=== PATIENT | male | born 1960 | race Caucasian/White ===

== ENCOUNTER 2017-07-16 18:54 | Emergency (ER) | payer SELFPAY ==
[2017-07-16 18:55] VITALS: BP 129/80; PULSE 84; RESP 15; TEMP 98.4; O2SAT 98
== END 2017-07-16 20:43 | disposition left against medical advice (07) ==
LOC: NED 18:54
DX: R41.82 Altered mental status, unspecified (principal); Z53.21 Procedure and treatment not carried out due to patient leaving prior to being seen by health care provider
CPT/HCPCS: 99281

== ENCOUNTER 2017-07-17 19:42 | Inpatient (IN) | payer OTHER ==
[~2017-07-17] VITALS: Ht 188 cm; Wt 75.5 kg
[2017-07-18 01:00] VITALS: BP 133/77; PULSE 74; RESP 20; TEMP 97.4; O2SAT 99
[2017-07-18] MEDS ORDERED: MAGNESIUM HYDROXIDE SUSP 30 ML CUP PO PRN (03:00)
[2017-07-18] MEDS ORDERED: BENZTROPINE MESYLATE 2 MG/2 ML VIAL IM PRN (03:00)
[2017-07-18] MEDS ORDERED: ALUMINUM/MAGNESIUM/SIMETH 30 ML CUP PO PRN (03:00)
--- NOTE | 2017-07-18 08:17 | HHI.HP ---
Provisional Diagnosis Admission Date Jul 18, 2017 at 01:00 [place] I. 1. Adjustment disorder, unspecified Rule out primary psychotic disorder Rule out psychosis due to [facility] [place]. Deferred Certification of Person's Competence To Provide Express and Informed Consent I have personally examined Troy Johnson , a person being served at [facility] on, Jul 18, 2017 08:17. Express and informed consent means consent voluntarily given in writing, by a competent person, after sufficient explanation and disclosure of the subject matter involved to enable the person to make a knowing and willful decision without any element of force, fraud, deceit, duress, or other form of constraint or coercion. This person is 18 years of age or older, is not now known to be incompetent to consent to treatment with a guardian advocate, and does not have a health care surrogate or proxy currently making medical treatment decisions. I have found this person to be one of the following: [] Competent to provide express and informed consent, as defined above, for voluntary admission to this facility and is competent to provide express and informed consent for treatment. He/she has the consistent capacity to make well reasoned, willful, and knowing decisions concerning his or her medical or mental health treatment. The person fully and consistently understands the purpose of the admission for examination/placement and is fully capable of personally exercising all rights assured [place] [x] Incompetent to provide express and informed consent to voluntary admission, and this is incompetent to provide express and informed consent to treatment. The person must be transferred to involuntary status and a petition for a guardian advocate filed with the Circuit Court. [] Refusing to provide express and informed consent to voluntary admission but is competent to provide express and informed consent for treatment. The person must be discharged or transferred to involuntary status. Form shall be completed within 24 hours of a person's arrival at the receiving facility and filed in the clinical record of each person: 1. Admitted on a voluntary basis 2. Permitted to provide express and informed consent to his/her own treatment 3. Allowed to transfer from involuntary to voluntary status 4. Prior to permitting a person to consent to his or her own treatment after having been previously found incompetent to consent to treatment. History of Present Illness Capacity: Lacks Capacity HPI Mr. Johnson is a 57-year-old male of uncertain past psychiatric history who presents in transfer from [facility] under a [place] act. Reviewing the documentation from [facility], it appears that the patient presented there at the behest of his primary care doctor. Patient' s brother provided collateral to the psychiatric screener that the patient has experienced audiovisual hallucinations since his 30s, although he has not apparently sought psychiatric care. Concern was that he threatened to punch their mother. Reviewing the electronic medical record, I see the patient was in the emergency department here recently but left without being seen. Patient seen and examined with nurse. Chart reviewed. Case discussed with nursing staff. On my examination today, the patient presents as a fairly vague historian. He does describe some paranoia, saying that [place] "has been setting them up...As soon as you walk into the place, they've got it planned. It's already pre-set-up." Denies audiovisual hallucinations. I can elicit no other paranoid ideation, no ideas of reference, no feelings of thought manipulation. He denies low mood and I can elicit no depressive symptoms. He denies elevated mood and I can elicit no hypomanic or manic symptoms. He describes his mood as "right in the middle." He denies any suicidal or homicidal ideation. Sleep and appetite are reportedly somewhat poor. Remainder of the psychiatric ROS is negative. No physical symptoms at this time. Given the concerns highlighted in the documentation from outside hospital, and given that the patient is a poor historian, I have obtained collateral from the patient's brother Sander Johnson. He notes that the patient has a history of hallucinations since his 30s but never sought psychiatric care. He says that the patient has no known history of psychiatric admissions or suicide attempts. He says that the patient frequently "flies off the handle" by which he means that the patient yells and he says that this problem has been getting worse in the last year or so. He says that the patient believes that people are coming into the house in the evening. He says that the patient may be more upset at this time because their mother canceled the cable TV package that he likes. Sander is concerned about his mother's safety given the patient's recent behavior. Past psychiatric history: The patient denies a history of psychiatric diagnosis. He denies a history of inpatient or outpatient psychiatric treatment. He denies a history of suicide attempts. Review of Systems ROS Limitations: Poor Historian Except as stated in HPI: all other systems reviewed are Neg Past Psych History Psychological trauma history No reported trauma history to me Violence risk - others (6 mos) Concern for elevated risk. Possibility exists that the patient is psychotic with urge to violence directed against his mother as alleged in the documents from outside hospital. The patient does deny homicidal ideation at this time. Violence risk - self (6 mos) Indeterminate Substance Abuse History Drugs/Alcohol past 12 months Patient denies any abuse of drugs or alcohol. Past Family Social History Coded Allergies: No Known Allergies (Verified Allergy, Severe, 07/16/17) Past Medical History Patient reports no medical problems. Brother confirms that the patient has no medical problems. No Active Prescriptions or Reported Meds Current Medications Medications (Trade) Dose Ordered Sig/Ally Route Start Time Stop Time Status Last Admin (Ativan) 1 mg Q6H PRN PO 07/18/17 03:00 (Ativan Inj) 1 mg Q6H PRN IM 07/18/17 03:00 (Cogentin) 1 mg Q12H PRN PO 07/18/17 03:00 (Cogentin Inj) 1 mg Q12H PRN IM 07/18/17 03:00 (Benadryl) 50 mg HS PRN PO 07/18/17 03:00 (Benadryl Inj) 50 mg HS PRN IM 07/18/17 03:00 (Tylenol) 650 mg Q4H PRN PO 07/18/17 03:00 (Milk Of Magnesia Liq) 30 ml DAILY PRN PO 07/18/17 03:00 (Mag-Al Plus Susp Liq) 30 ml Q6H PRN PO 07/18/17 03:00 Family History Patient denies any family history of mental illness. Social History Patient reports that he lives with his 90-year-old mother. 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 He has 2 brothers although one is reportedly , unclear if this is in fact factual. Did not complete high school. Not presently working. Denies any or legal history. Denies any access to guns or firearms. Patient's Strengths (min. 2) In a monitored setting. Supportive brother. Physical Exam Physical exam completed at outside hospital. On my examination today, the patient appears to be in no acute physical distress. No motor abnormalities noted. Labs and vitals reviewed: Vital Signs Vital Signs Date Time Temp Pulse Resp B/P (MAP) Pulse Ox O2 Delivery O2 Flow Rate FiO2 07/18/17 01:00 97.4 74 20 133/77 (95) 99 Lab Results Laboratories from outside hospital reviewed: CBC unremarkable. CMP reveals mildly elevated total bilirubin at 1.7 but otherwise unremarkable. Urinalysis bland. Urine toxicology negative. Alcohol level undetectable. Mental Status Examination Patient is in hospital gown. He is somewhat disheveled but maintaining basic hygiene. He is awake and alert and oriented to person and hospital at least. No evidence of delirium. No motor abnormalities noted. Speech is somewhat vague as far as content is otherwise within normal limits for rate, tone and volume. Lying which and fund of knowledge approximately average. Focus and concentration seem fairly intact. Memory may be somewhat confabulated, unclear. Mood is stable and affect is flat. Thought process generally linear. No loosening of associations. No delusional material elicited at this time. Denies audiovisual hallucinations. Denies suicidal or homicidal ideation but is unclear that he is reliable contract for safety. Insight and judgment are unclear. Assessment & Plan Problem List: (1) Adjustment disorder ICD Codes: F43.20 - Adjustment disorder, unspecified Assessment & Plan This is a 57-year-old male with psychiatric history as detailed above who presents in transfer from outside hospital under a [place] act. On my examination today, the patient presents as a quite vague historian. He denies psychotic symptoms, but the patient's brother provides collateral that the patient has a history of audiovisual hallucination stretching back into his 30s although it does not appear this has been psychiatrically evaluated or treated in that time. Patient has allegedly been making threats of violence against his aged mother. Given the concerns highlighted by the brother and in the transfer documents, I think it is prudent to admit the patient to the inpatient psychiatric unit for observation and stabilization if necessary. Admit inpatient. Involuntary status. I completed first opinion. Consult for second opinion. Request healthcare surrogate and guardian advocate. It does not appear that the patient has had a first break psychosis workup done in the many decades of his reported symptomatology. I will check a head CT. Check a TSH, B12, RPR, HIV, ammonia. Check EKG for QTC. Hold off on scheduled psychotropics at this time pending further observation. Haldol as needed for severe agitation, Ativan as needed for anxiety, Cogentin as needed for EPS, Benadryl as needed for sleep. Vitals every shift. Counselor to see and obtain collateral. Disposition planning. Estimated length of stay: 7-9 days. Discharge Planning Pending outcome of observation/stabilization Problem Qualifiers (1) Adjustment disorder: Qualified Codes: F43.20 - Adjustment disorder, unspecified Reinaldo Guadalupe MD Jul 18, 2017 08:17
[2017-07-18 10:06] LABS: ANION GAP 7 MEQ/L (5-15); BICARBONATE 28.7 MEQ/L (21.0-32.0); BLOOD UREA NITROGEN 17 MG/DL (7-18); CHLORIDE 105 MEQ/L (98-107); GLOMERULAR FILTRATION RATE 76 ML/MIN (>89); POTASSIUM 3.5 MEQ/L (3.5-5.1); SODIUM (NA) 141 MEQ/L (136-145)
[2017-07-18 10:09] LABS: HDL CHOLESTEROL 53.6 MG/DL (40.0-60.0); LDL CHOLESTEROL 121 MG/DL (0-99)
[2017-07-18 10:56] LABS: HEMOGLOBIN A1b 1.7 %; HEMOGLOBIN Ao 85.1 %; HEMOGLOBIN LA1C 2.1 %; HEMOGLOBIN P3 3.8 %
[2017-07-18] MEDS: LORazepam 1 MG TAB PO PRN ×2 (15:39→20:26)
[2017-07-18 16:07] VITALS: BP 144/75; PULSE 77; RESP 18; TEMP 98.1
--- NOTE | 2017-07-18 16:11 | PD.PSY.CON ---
Provisional Diagnosis Admission Date Jul 18, 2017 at 01:00 [place]. 1. Adjustment disorder, unspecified Rule out primary psychotic disorder Rule out psychosis due to [facility] [place]. Deferred History of Present Illness Service Psychiatry Consult Requested By Dr. Mcdermott Reason for Consult Second opinion petition [place] act Primary Care Physician Troy Call MD HPI Mr. Johnson is a 57-year-old male of uncertain past psychiatric history who presents in transfer from [facility] under a [place] act. Reviewing the documentation from [facility], it appears that the patient presented there at the behest of his primary care doctor. Patient' s brother provided collateral to the psychiatric screener that the patient has experienced audiovisual hallucinations since his 30s, although he has not apparently sought psychiatric care. Concern was that he threatened to punch their mother. Reviewing the electronic medical record, I see the patient was in the emergency department here recently but left without being seen. Patient seen and examined with nurse. Chart reviewed. Case discussed with nursing staff. On my examination today, the patient presents as a fairly vague historian. He does describe some paranoia, saying that [place] "has been setting them up...As soon as you walk into the place, they've got it planned. It's already pre-set-up." Denies audiovisual hallucinations. I can elicit no other paranoid ideation, no ideas of reference, no feelings of thought manipulation. He denies low mood and I can elicit no depressive symptoms. He denies elevated mood and I can elicit no hypomanic or manic symptoms. He describes his mood as "right in the middle." He denies any suicidal or homicidal ideation. Sleep and appetite are reportedly somewhat poor. Remainder of the psychiatric ROS is negative. No physical symptoms at this time. Given the concerns highlighted in the documentation from outside hospital, and given that the patient is a poor historian, I have obtained collateral from the patient's brother Sander Johnson. He notes that the patient has a history of hallucinations since his 30s but never sought psychiatric care. He says that the patient has no known history of psychiatric admissions or suicide attempts. He says that the patient frequently "flies off the handle" by which he means that the patient yells and he says that this problem has been getting worse in the last year or so. He says that the patient believes that people are coming into the house in the evening. He says that the patient may be more upset at this time because their mother canceled the cable TV package that he likes. Sander is concerned about his mother's safety given the patient's recent behavior. Past psychiatric history: The patient denies a history of psychiatric diagnosis. He denies a history of inpatient or outpatient psychiatric treatment. He denies a history of suicide attempts. 07/18/17 Above note dictated by Dr. guadalupe reviewed and agreed with. Patient seen by me in [place] with nurse Samantha. Patient anxious nervous appears to be responding to internal stimuli shows no insight into his behaviors is confused as to his location. Dr. Guadalupe #first opinion petition supporting [place] act. I agree. Patient meets criteria for involuntary psychiatric hospitalization the [place] act. Thus I will cosign second opinion petition supporting [place] act Past Family Social History Coded Allergies: No Known Allergies (Verified Allergy, Severe, 07/16/17) No Active Prescriptions or Reported Meds Current Medications Medications (Trade) Dose Ordered Sig/Ally Route Start Time Stop Time Status Last Admin (Ativan) 1 mg Q6H PRN PO 07/18/17 03:00 07/18/17 15:39 (Ativan Inj) 1 mg Q6H PRN IM 07/18/17 03:00 (Cogentin) 1 mg Q12H PRN PO 07/18/17 03:00 (Cogentin Inj) 1 mg Q12H PRN IM 07/18/17 03:00 (Benadryl) 50 mg HS PRN PO 07/18/17 03:00 (Benadryl Inj) 50 mg HS PRN IM 07/18/17 03:00 (Tylenol) 650 mg Q4H PRN PO 07/18/17 03:00 (Milk Of Magnesia Liq) 30 ml DAILY PRN PO 07/18/17 03:00 (Mag-Al Plus Susp Liq) 30 ml Q6H PRN PO 07/18/17 03:00 (Haldol) 5 mg Q6H PRN PO 07/18/17 09:15 (Haldol Inj) 5 mg Q6H PRN IM 07/18/17 09:15 Patient's Strengths (min. 2) In a monitored setting. Supportive brother. Physical Exam Vital Signs Vital Signs Date Time Temp Pulse Resp B/P (MAP) Pulse Ox O2 Delivery O2 Flow Rate FiO2 07/18/17 01:00 97.4 74 20 133/77 (95) 99 Lab Results Test 07/18/17 09:04 07/18/17 12:38 Blood Urea Nitrogen 17 MG/DL Creatinine 1.01 MG/DL Random Glucose 113 MG/DL Calcium Level 8.2 MG/DL Sodium Level 141 MEQ/L Potassium Level 3.5 MEQ/L Chloride Level 105 MEQ/L Carbon Dioxide Level 28.7 MEQ/L Anion Gap 7 MEQ/L Estimat Glomerular Filtration Rate 76 ML/MIN Hemoglobin A1c 5.8 % Triglycerides Level 93 MG/DL Cholesterol Level 193 MG/DL LDL Cholesterol 121 MG/DL HDL Cholesterol 53.6 MG/DL Cholesterol/HDL Ratio 3.60 RATIO Ammonia 20 MCMOL/L Vitamin B12 Level 579 PG/ML Thyroid Stimulating Hormone 3rd Gen 1.500 uIU/ML Mental Status Examination Alert though somewhat confusing thin slender disheveled white male guarded in his responses somewhat childlike also Appearance Disheveled Speech: Rapid, Other (disorganized) Orientation: Person, Place Memory: Impaired (describe) Thought Process: Loose Association Thought Content: Paranoid (mildly) Language Poor Fund of Knowledge Poor Hallucination Type: None (though he appears to be responding to internal stimuli) Attention and Concentration: Other (poor) Suicidal Ideation: No (deny) Previous Suicide Attempts: No (denies) Homicidal Ideation: No (denies) Previous Homicide Attempts: No (deny) Insight: Poor Judgment: Poor Affect: Other (slight increase range and intensity) Mood: Anxious (mildly), Irritable (mildly) Motor Activity: Normal gait Assessment & Plan Problem List: (1) Adjustment disorder ICD Codes: F43.20 - Adjustment disorder, unspecified Assessment & Plan Estimated LOS: days Problem Qualifiers (1) Adjustment disorder: Qualified Codes: F43.20 - Adjustment disorder, unspecified Troy Keys MD Jul 18, 2017 16:11
--- NOTE | 2017-07-18 16:41 | EKG ---
Date Performed: 07/18/2017 Time Performed: 10:37:05 PTAGE: 57 years EKG: Sinus rhythm POSSIBLE RIGHT VENTRICULAR CONDUCTION DELAY SEPTAL MYOCARDIAL INFARCTION , PROBABLY OLD ABNORMAL ECG NO PREVIOUS TRACING DOCTOR: Karen Mckee Interpretating Date/Time 07/18/2017 16:38:22
[2017-07-18] MEDS: diphenhydrAMINE HCL 50 MG CAP - HS PRN PO (20:26)
[2017-07-18] MEDS: HALOPERIDOL LACTATE 5 MG/ML AMP IM PRN (23:22)
[2017-07-19 05:55] VITALS: BP 123/63; PULSE 66; RESP 18; TEMP 97.3
--- NOTE | 2017-07-19 10:52 | HHI.PYPN ---
Subjective Remarks Patient seen and examined with nurse. Chart reviewed. Case discussed with nursing staff. Patient required Haldol PRN overnight as he was anxious and trying to get into other people's rooms. On my examination today, patient presents with slowed thought process, some thought blocking. Paranoia noted. He seems confused generally and has some word-finding difficulties. He is oriented to person and date but note place. He is dysphoric and describes his situation as "crappy, always crappy." Denies AVH but appears internally preoccupied. Sleep reportedly poor. No SI or HI. No physical complaints. Review of Systems ROS Limitations: Poor Historian Except as stated in HPI: all other systems reviewed are Neg Objective Alert: Yes [place]: Person, Date Mood: Other (Dypshoric) Affect: Restricted Memory Intact: Comment (Registration 3/3, recall 0/3 at 3 minutes) Hallucinations: Other (denies AVH but appears internally preoccupied) Delusions: Yes Delusion Type: Paranoid Suicidal: Ideation (no SI) Homicidal: Ideation (no HI) Insight/Judgment Poor Remarks Slight resting tremor noted. No dystonias or dyskinesias. No other motor abnormalities noted. Grooming and hygiene fair. Speech somewhat slow and halting with word finding difficulties. Thought process as above. Labs Test 07/18/17 12:38 Ammonia 20 MCMOL/L Vitamin B12 Level 579 PG/ML Thyroid Stimulating Hormone 3rd Gen 1.500 uIU/ML Rapid Plasma Reagin NON-REACTIVE Labs reviewed. HIV neg. Vitals/IOs Vital Signs Date Time Temp Pulse Resp B/P (MAP) Pulse Ox O2 Delivery O2 Flow Rate FiO2 07/19/17 05:55 97.3 66 18 123/63 (83) 07/18/17 01:00 99 Assessment & Plan Problem List: (1) Psychosis ICD Codes: F29 - Unspecified psychosis not due to a substance or known physiological condition Assessment & Plan Patient's presentation more frankly psychotic today, and the patient did require Haldol overnight. Cognition mildly impaired, although this may be impaired by psychosis, will follow up. I will initiate Seroquel 50 mg this evening and then 50 mg twice daily starting tomorrow. Follow up head CT. Continue to monitor on the inpatient unit. Continue other medications and care as ordered. Justification for Cont. Inpt. Medication changes in process. Risk for decompensation in less restrictive environment. Discharge Planning Pending stabilization Request HC Surrog/Guard Advoc?: Yes Problem Qualifiers (1) Psychosis: Qualified Codes: F28 - Other psychotic disorder not due to a substance or known physiological condition Reinaldo Guadalupe MD Jul 19, 2017 10:52
[2017-07-19 16:27] VITALS: BP 126/66; PULSE 77; RESP 18; TEMP 98.5; O2SAT 98
[2017-07-19] MEDS: diphenhydrAMINE HCL 50 MG CAP - HS PRN PO (21:00)
[2017-07-19] MEDS ORDERED: QUEtiapine FUMARATE 25 MG TAB PO SCH (21:00)
[2017-07-19] MEDS: LORazepam 1 MG TAB PO PRN (21:00)
[2017-07-19] MEDS: HALOPERIDOL LACTATE 5 MG/ML AMP IM PRN (23:36)
[2017-07-20 06:06] VITALS: BP 125/73; PULSE 73; RESP 18; TEMP 97.5; O2SAT 99
--- NOTE | 2017-07-20 10:08 | HHI.PYPN ---
Subjective Remarks Patient seen and examined with nurse. Chart reviewed. Case discussed with nursing staff who reports that the patient continues to exhibit disorganized behavior at times. For example, the patient reportedly ran up and down the hallway yesterday evening. He was confused, going into other people's rooms, and ended up having a BM in the hallway. On my examination today, the patient continues to display some thought blocking. He appears internally preoccupied. Somewhat paranoid. No complaints of pain or other physical complaints. Seroquel on hold for lack of consent, and the nurse is going to call to obtain consent this morning. Review of Systems ROS Limitations: Psychotic, Poor Historian Except as stated in HPI: all other systems reviewed are Neg Objective Alert: Yes [place]: Person (at least) Mood: Anxious Affect: Flat Memory Intact: Comment (seems impaired on clinical exam) Hallucinations: Other (Remains int stim) Delusions: Yes Delusion Type: Paranoid Suicidal: Ideation (no SI) Homicidal: Ideation (no HI) Insight/Judgment Poor Remarks Mild resting hand tremor and cogwheeling. Patient did receive Haldol PRN overnight. No other motor abnormalities noted. Grooming and hygiene fair at best. Thought process slowed with thought blocking. Labs Labs reviewed. Head CT results noted. Normal exam. Vitals/IOs Vital Signs Date Time Temp Pulse Resp B/P (MAP) Pulse Ox O2 Delivery O2 Flow Rate FiO2 07/20/17 06:06 97.5 73 18 125/73 (90) 99 Assessment & Plan Problem List: (1) Psychosis ICD Codes: F29 - Unspecified psychosis not due to a substance or known physiological condition Assessment & Plan Initiate Seroquel once consent is obtained. My hope is that this will induce less tremulousness than the Haldol and that less PRN Haldol will be required once the patient is on a scheduled dose of an antipsychotic. Patient's behavioral disorganization observed on the unit seems more prominent than was reported by brother, who said the patient had more paranoia and AVH. I will ask neurology to evaluate for possible organic cause. Continue to monitor on the high acuity unit. Continue other medications and care as ordered. Justification for Cont. Inpt. Risk for decompensation and less restrictive environment. Discharge Planning Pending psychiatric stabilization. Request HC Surrog/Guard Advoc?: Yes Problem Qualifiers (1) Psychosis: Qualified Codes: F28 - Other psychotic disorder not due to a substance or known physiological condition Reinaldo Guadalupe MD Jul 20, 2017 10:08
--- NOTE | 2017-07-20 10:54 | RADRPT ---
EXAM DATE/TIME: 07/20/2017 10:30 [place] COMPARISON: No previous studies available for comparison. INDICATIONS : Altered mental status RADIATION DOSE: 36.51 CTDIvol (mGy) MEDICAL HISTORY : Anxiety SURGICAL HISTORY : None. ENCOUNTER: Initial ACUITY: 1 day PAIN SCALE: 0/10 LOCATION: cranial TECHNIQUE: Multiple contiguous axial images were obtained of the head. Using automated exposure control and adj ustment of the mA and/or kV according to patient size, radiation dose was kept as low as reasonably a chievable to obtain optimal diagnostic quality images. DICOM format image data is available electro nically for review and comparison. FINDINGS: CEREBRUM: The ventricles are normal for age. No evidence of midline shift, mass lesion, hemorrhage or acute in farction. No extra-axial fluid collections are seen. POSTERIOR FOSSA: The cerebellum and brainstem are intact. The 4th ventricle is midline. The cerebellopontine angle i s unremarkable. EXTRACRANIAL: The visualized portion of the orbits is intact. SKULL: The calvaria is intact. No evidence of skull fracture. CONCLUSION: Normal examination. Alex Aparicio Jr., MD on July 20, 2017 at 10:52 Board Certified Radiologist. This report was verified electronically.
[2017-07-20 15:43] VITALS: BP 130/70; PULSE 96; RESP 18; TEMP 98.3; O2SAT 99
[2017-07-20] MEDS: QUEtiapine FUMARATE 25 MG TAB PO SCH (21:01)
[2017-07-21] MEDS: LORazepam 1 MG TAB PO PRN ×2 (02:48→20:48)
[2017-07-21 06:10] VITALS: BP 118/80; PULSE 87; RESP 17; TEMP 97.6; O2SAT 98
[2017-07-21] MEDS: QUEtiapine FUMARATE 25 MG TAB PO SCH ×2 (08:24→20:49)
--- NOTE | 2017-07-21 15:26 | MB ---
cc: LAVONNE BROWN M.D. DATE OF CONSULTATION 07/21/17 DATE OF 1960 AGE 57-year-old male. REASON FOR CONSULTATION Possible other cause of psychosis, organic. HISTORY OF PRESENT ILLNESS This is a 57-year-old man admitted to the psychiatric hospital [facility] for uncertain past psychiatric history. He has apparently some paranoia. Having some audio, visual hallucinations. He was at an outside hospital. Apparently, has had hallucinations since his 30s, sought some psychiatric care. Flies off the handle per chart note, easily, worse in the last year or so. 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 ALLERGIES None reported. PAST MEDICAL HISTORY None. 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 He has two brothers, one is per chart. He did finish high school. He is not working. PHYSICAL EXAMINATION VITAL SIGNS: On exam his vital signs temperature is 97.6, pulse 87, respiratory rate 17, blood pressure 118/80. NEURO: He was asleep. He woke easily. He got out of bed without difficulties. Speech is normal. His pupils are reactive. Visual corrales are full. Face symmetrical. Tongue midline. Motor: He does not exhibit any tremor drift or leg lag. Cerebellar testing is normal. DTRs are 2+. Sensory is normal. Gait is withheld. He just got up from sleep. He is sitting up at the edge of bed without any issues. LABORATORY DATA Labs were reviewed. B12 579, TSH 1.50. His HIV was nonreactive. RPR was nonreactive as well. IMAGING STUDIES CT of the brain did not show any acute findings. IMPRESSION Psychosis, etiology really unknown. He has had some concussions. We recommend getting an EEG and an MRI of the brain to better delineate any trauma he may have sustained. Continue current care. If any abnormalities on my testing further recommendations will be made accordingly. Lavonne Brown MD DF/RAINA /10:21 AM /3:14 PM
--- NOTE | 2017-07-21 16:56 | RADRPT ---
EXAM DATE/TIME: 07/21/2017 16:22 [place] COMPARISON: CT BRAIN W/O CONTRAST, July 20, 2017, 10:30. INDICATIONS : Altered mental status. MEDICAL HISTORY : Dementia. SURGICAL HISTORY : None. ENCOUNTER: Initial ACUITY: 1 day PAIN SCORE: 0/10 LOCATION: cranial TECHNIQUE: Multiplanar, multisequence MRI of the brain was performed without contrast. FINDINGS: CEREBRUM: The ventricles are normal for age. No evidence of midline shift, mass lesion, hemorrhage or acute in farction. No extraaxial fluid collections are seen. The pituitary gland and suprasellar cistern are normal in configuration. WHITE MATTER: No significant signal abnormalities are seen in the white matter. POSTERIOR FOSSA: The cerebellum and brainstem are intact. The 4th ventricle is midline. The cerebellopontine angle is unremarkable. The cerebellar tonsils are normal in position. DIFFUSION IMAGING: No focal areas of restricted diffusion are seen. No evidence of acute infarction. EXTRACRANIAL: The visualized portions of the orbits and paranasal sinuses are unremarkable. CONCLUSION: Negative exam with no evidence of hemorrhage, mass or stroke. Rolf Pineda MD on July 21, 2017 at 16:52 Board Certified Radiologist. This report was verified electronically.
--- NOTE | 2017-07-21 17:14 | HHI.PYPN ---
Subjective Remarks Patient was seen and case discussed with nursing. Patient is pleasant and cooperative with exam. Behaving well on the unit. Patient is disheveled with poor insight. He is depressed "a little bit." Denies suicidal or homicidal ideation intent or plan. Eye contact is poor area compliant with medications. Denies psychotic symptoms. MRI brain is negative Objective Alert: Yes [place]: Person (at least) Mood: Anxious Affect: Flat, Blunted Memory Intact: Comment (seems impaired on clinical exam) Hallucinations: Other (Remains int stim) Delusions: Yes Delusion Type: Paranoid Suicidal: Ideation (no SI) Homicidal: Ideation (no HI) Insight/Judgment Poor Vitals/IOs Vital Signs Date Time Temp Pulse Resp B/P (MAP) Pulse Ox O2 Delivery O2 Flow Rate FiO2 07/21/17 06:10 97.6 87 17 118/80 (93) 98 Assessment & Plan Problem List: (1) Psychosis ICD Codes: F29 - Unspecified psychosis not due to a substance or known physiological condition Assessment & Plan Continue current treatment plan Justification for Cont. Inpt. Patient would decompensate in a less restrictive setting Request HC Surrog/Guard Advoc?: Yes Problem Qualifiers (1) Psychosis: Qualified Codes: F28 - Other psychotic disorder not due to a substance or known physiological condition Arpan Castaneda DO Jul 21, 2017 17:14
[2017-07-21 18:46] VITALS: BP 155/88; PULSE 87; RESP 17; TEMP 97.6; O2SAT 98
[2017-07-21] MEDS: diphenhydrAMINE HCL 50 MG CAP - HS PRN PO (20:48)
[2017-07-21] MEDS: HALOPERIDOL LACTATE 5 MG/ML AMP IM PRN (22:43)
[2017-07-22] MEDS: QUEtiapine FUMARATE 25 MG TAB PO SCH ×2 (08:50→20:38)
[2017-07-22] MEDS: HALOPERIDOL 5 MG TAB PO PRN (09:36)
[2017-07-22] MEDS: LORazepam 1 MG TAB PO PRN (09:36)
--- NOTE | 2017-07-22 16:18 | HHI.PYPN ---
Subjective Remarks Patient was seen and case discussed with nursing. Per nursing, patient was agitated and exit seeking last night. Being on the windows. For this interview he received Ativan and our goal for an EEG and is sedated throughout. He does not remember his behavior from yesterday. He denies any psychotic symptoms. He is resting in bed. Compliant with medications Objective Alert: Yes [place]: Person (at least) Mood: Angry Affect: Blunted Memory Intact: Comment (seems impaired on clinical exam) Hallucinations: Other (Remains int stim) Delusions: Yes Delusion Type: Paranoid Suicidal: Ideation (no SI) Homicidal: Ideation (no HI) Insight/Judgment Poor Vitals/IOs Vital Signs Date Time Temp Pulse Resp B/P (MAP) Pulse Ox O2 Delivery O2 Flow Rate FiO2 07/21/17 18:46 97.6 87 17 155/88 (110) 98 Assessment & Plan Problem List: (1) Psychosis ICD Codes: F29 - Unspecified psychosis not due to a substance or known physiological condition Assessment & Plan Continue current treatment plan Justification for Cont. Inpt. Patient would decompensate in a less restrictive setting Request HC Surrog/Guard Advoc?: Yes Problem Qualifiers (1) Psychosis: Qualified Codes: F28 - Other psychotic disorder not due to a substance or known physiological condition Arpan Castaneda DO Jul 22, 2017 16:18
[2017-07-22 18:00] VITALS: BP 117/71; PULSE 84; RESP 17; TEMP 97.7; O2SAT 99
--- NOTE | 2017-07-22 21:50 | MG ---
cc: ZENA ORANTES M.D. Lab No: Date: 07/22/2017 Age: Sex: M Race: DATE OF 1960, 57 years old RESULTS EEG number 17 - 1375 ROOM 2708. Hyperventilation was attempted but would start and then stop. Photic was done awake, drowsy, asleep study. CT normal This is a 57-year-old male with disorganized behavior, confused, psychosis. Ativan given at 9:36 in the morning. MEDICATIONS Seroquel. Haldol. DESCRIPTION OF RECORD The patient has overall background slowing predominately of 4 Hz. Seems to be asleep, documented by health care technician. In the beginning portion of the recording EKG is disorganized, cannot be interpreted. There is overall background slowing likely from sensation. No epileptiform features are seen. Photic stimulation with mild driving response, minimal. Hyperventilation is encouraged. Some moderate slowing. No epileptiform features. IMPRESSION Encephalopathic looking EEG but may be due to medicine effect with somnolence. No epileptiform features are observed nor any lateralizing findings. Clinical correlation. MD GIULIANA Cornell/JESSIKA /8:34 PM /9:40 PM
[2017-07-23 05:51] VITALS: BP 111/61; PULSE 64; RESP 18; TEMP 97.6; O2SAT 97
[2017-07-23] MEDS: QUEtiapine FUMARATE 25 MG TAB PO SCH (09:23)
--- NOTE | 2017-07-23 11:19 | HHI.PYPN ---
Subjective Remarks Patient seen and examined with counselor and nurse. Chart reviewed. Case discussed with nursing counselor. Nursing notes that the patient seems to be more confused and disorganized in the evenings, almost as if he is . Neurology consultation noted. On my examination today, the patient describes some vague auditory hallucinations of "mimicry." Denies any SI or HI. Seems quite confused. Possibly some ongoing thought blocking. He isn't aware that today is a holiday, namely . Denies side effects from medications. No physical complaints. Review of Systems ROS Limitations: Psychotic, Poor Historian Except as stated in HPI: all other systems reviewed are Neg Objective Alert: Yes [place]: Person Mood: Calm Affect: Blunted (tending towards flat) Memory Intact: Comment (impaired) Hallucinations: Auditory (as above), Other (internally preoccupied) Delusions: Yes Delusion Type: Paranoid Suicidal: Ideation (denies SI) Homicidal: Ideation (denies HI) Insight/Judgment Poor Remarks No new motor abnormalities noted. Thought process slowed with thought blocking. Grooming and hygiene fair at best. Labs Labs reviewed. Workup for reversible causes of patient's current mental state so far negative. MRI and EEG results reviewed. Possibly some degree of encephalopathy on the EEG, but this also may be medication effect. Vitals/IOs Vital Signs Date Time Temp Pulse Resp B/P (MAP) Pulse Ox O2 Delivery O2 Flow Rate FiO2 07/23/17 05:51 97.6 64 18 111/61 (78) 97 Assessment & Plan Problem List: (1) Psychosis ICD Codes: F29 - Unspecified psychosis not due to a substance or known physiological condition Assessment & Plan Titrate Seroquel to 50/100 mg. Appreciate neurology input. Consult occupational therapist to assess patient's functional status; he may require placement. Continue to monitor on the high acuity unit. Continue other medications and care as ordered. Justification for Cont. Inpt. Medication changes. Impairment in reality construction. High risk for decompensation in less restrictive environment. Discharge Planning Pending psychiatric stabilization. ?Placement. Request HC Surrog/Guard Advoc?: Yes Problem Qualifiers (1) Psychosis: Qualified Codes: F28 - Other psychotic disorder not due to a substance or known physiological condition Reinaldo Guadalupe MD Jul 23, 2017 11:19
[2017-07-23 17:51] VITALS: BP 139/76; PULSE 89; RESP 18; TEMP 98.3; O2SAT 99
[2017-07-23] MEDS ORDERED: QUEtiapine FUMARATE 100 MG TAB PO SCH (21:00)
[2017-07-24 06:23] VITALS: BP 121/77; PULSE 86; RESP 18; TEMP 97.4; O2SAT 97
[2017-07-24] MEDS: QUEtiapine FUMARATE 25 MG TAB PO SCH (09:33)
--- NOTE | 2017-07-24 09:38 | HHI.PYPN ---
Subjective Remarks Patient seen and examined. Chart reviewed. Case discussed in treatment team. Per nursing staff, patient continues to display poor concentration and disorganization. On my examination today, patient seems a little more appropriate in the interaction. He says with a smile "I don't wanna say anything good or bad." He remains internally preoccupied. Although he is out in the day area at times, he interacts little if at all with others. Denies side effects from meds. No physical complaints. Counselor reports patient's brother and [facility] Sander is requesting a call. . I speak with Sander in telephone consultation for ~12 min and discuss patient's progress on the unit so far and treatment plan going forward. We discuss OT eval and possibility that patient may require placement. He thanks me for the call. Review of Systems ROS Limitations: Psychotic, Poor Historian Except as stated in HPI: all other systems reviewed are Neg Objective Alert: Yes [place]: Person Mood: Calm Affect: Blunted (a little more reactive today) Memory Intact: Comment (not formally assessed) Hallucinations: Auditory (remains internally preoccupied) Delusions: Yes Delusion Type: Other (some bizarre ideation) Suicidal: Ideation (no SI) Homicidal: Ideation (no HI) Insight/Judgment Poor Remarks No new motor abnormalities noted. Labs Labs reviewed. Vitals/IOs Vital Signs Date Time Temp Pulse Resp B/P (MAP) Pulse Ox O2 Delivery O2 Flow Rate FiO2 07/24/17 06:23 97.4 86 18 121/77 (92) 97 Assessment & Plan Problem List: (1) Psychosis ICD Codes: F29 - Unspecified psychosis not due to a substance or known physiological condition Assessment & Plan Titrate Seroquel to 50/150 mg to target psychosis. Patient seems to be responding somewhat to this medication. Follow-up OT evaluation. Continue to monitor on the inpatient unit. Continue other medications and care as ordered. Justification for Cont. Inpt. Medication change in process. Impairment in reality construction. High risk for decompensation and less restrictive environment. Discharge Planning Pending further observation/OT evaluation. Request HC Surrog/Guard Advoc?: Yes Problem Qualifiers (1) Psychosis: Qualified Codes: F28 - Other psychotic disorder not due to a substance or known physiological condition Reinaldo Guadalupe MD Jul 24, 2017 09:38
--- NOTE | 2017-07-24 11:44 | PD.TTN ---
Patient Problems 1. Discharge planning 2. Medication compliance 3. Knowledge deficit 4. Lack of coping skills Progress Toward Goals Provider Present: Dr. González Guadalupe Provider Input: Dr. Guadalupe treatment team met to discuss treatment plan, discharge and medication. Patient has poor insight into his situaton. Medication will be added for mood stablization. Patient will either return home or an JOANN once discharged Nurse(s) Input: Patient's nurse Danette Soto reports patient has poor concentration, concerned with mother's wellbeing, brighter affect, tremerous, nervous Psychiatric Counselors Present: Cherelle Ramos [facility] Psych Therapist Input: Patient presented anxious, nervous. affect blunted. Patient's speech was clear, organized with pressured. Patient made good eye contact.. Patient is exit seeking, focused on discharge. Patient is medication compliant. Patient is alert to person, place but has poor insight into his situation. Group Spec/RT/OT/ESPINAL Present: KYLIE Ramirez Group Spec/RT/OT/ESPINAL Input: Patient isolates to his room Cherelle Ramos [facility] Jul 24, 2017 11:44
[2017-07-24] MEDS ORDERED: PILL SPLITTER OTHER PRN (13:00)
[2017-07-24 18:12] VITALS: BP 119/76; PULSE 81; RESP 18; TEMP 98.2; O2SAT 97
[2017-07-24] MEDS ORDERED: QUEtiapine FUMARATE 100 MG TAB PO SCH (21:00)
[2017-07-24] MEDS: HALOPERIDOL 5 MG TAB PO PRN (23:13)
[2017-07-24] MEDS: diphenhydrAMINE HCL 50 MG CAP - HS PRN PO (23:13)
[2017-07-25] MEDS: LORazepam 2 MG/ML VIAL IM PRN (00:43)
[2017-07-25 05:45] VITALS: BP 123/75; PULSE 77; RESP 18; TEMP 97.5; O2SAT 97
[2017-07-25] MEDS: QUEtiapine FUMARATE 25 MG TAB PO SCH (09:50)
--- NOTE | 2017-07-25 09:52 | HHI.PYPN ---
Subjective Remarks Patient seen and examined with counselor and nurse. Chart reviewed. Case discussed with nursing staff. Patient apparently became quite agitated and disorganized overnight and required Ativan IM. On my examination this morning, the patient tells me of his agitation overnight "I remember some of it. Things weren't going so straight." Patient displays some thought blocking and poverty of thought. He denies any SI or HI. Denies any AVH but appears internally preoccupied. Denies side effects from medications. No physical complaints. Occupational therapist and to evaluate the patient today. Review of Systems ROS Limitations: Psychotic, Poor Historian Except as stated in HPI: all other systems reviewed are Neg Objective Alert: Yes [place]: Person Mood: Calm (presently calm but agitated overnight) Affect: Flat Memory Intact: Comment (not formally assessed) Hallucinations: Auditory (int stim) Delusions: Yes Delusion Type: Other (bizarre) Suicidal: Ideation (no SI) Homicidal: Ideation (no HI) Insight/Judgment Poor Remarks No new motoric abnormalities noted. Poverty of thought noted. Thought blocking present. Grooming and hygiene fair at best. Labs Labs reviewed. Vitals/IOs Vital Signs Date Time Temp Pulse Resp B/P (MAP) Pulse Ox O2 Delivery O2 Flow Rate FiO2 07/25/17 05:45 97.5 77 18 123/75 (27) 97 Assessment & Plan Problem List: (1) Psychosis ICD Codes: F29 - Unspecified psychosis not due to a substance or known physiological condition Assessment & Plan Titrate Seroquel to 200 mg at bedtime this evening and titrate daytime dose to 100 mg tomorrow to target psychosis. Continue to monitor on the high acuity unit. Follow-up OT evaluation. Continue other medications and care as ordered. Justification for Cont. Inpt. Medication changes in process. Concern for impairment in self-care/safety, particularly with his ongoing nocturnal agitation. High risk for decompensation in less restrictive environment. Discharge Planning Pending psychiatric stabilization. Request HC Surrog/Guard Advoc?: Yes Problem Qualifiers (1) Psychosis: Qualified Codes: F28 - Other psychotic disorder not due to a substance or known physiological condition Reinaldo Guadalupe MD Jul 25, 2017 09:52
[2017-07-25] MEDS: LORazepam 1 MG TAB PO PRN (16:40)
[2017-07-25 18:16] VITALS: BP 136/80; PULSE 87; RESP 18; TEMP 98.4; O2SAT 98
[2017-07-25] MEDS: QUEtiapine FUMARATE 200 MG TAB PO SCH (21:32)
[2017-07-26] MEDS: LORazepam 2 MG/ML VIAL IM PRN (00:13)
[2017-07-26] MEDS: HALOPERIDOL LACTATE 5 MG/ML AMP IM PRN (00:13)
[2017-07-26] MEDS: diphenhydrAMINE HCL 50 MG/ML VIAL - HS PRN IM (00:13)
[2017-07-26 05:39] VITALS: BP 126/69; PULSE 55; RESP 16; TEMP 97.4; O2SAT 96
[2017-07-26] MEDS: QUEtiapine FUMARATE 100 MG TAB PO SCH ×2 (08:24→09:00)
--- NOTE | 2017-07-26 11:33 | HHI.PYPN ---
Subjective Remarks Patient seen and examined. Chart reviewed. Case discussed with nursing staff. Patient reportedly restless and agitated overnight. He received Haldol, Ativan and Benadryl PRN. He is consequently sedated this morning and did not receive his morning dose of Seroquel for this reason. I did endeavor to examine the patient. He rouses briefly to voice but then lapses back into sleep. He tells me he "just woke up." He appears to be in no physical distress. Review of Systems ROS Limitations: Poor Historian, Other (sedated) Other Limited ROS Objective Alert: No (sedated but rouses to voice) [place]: Person Mood: Other (unable to assess) Affect: Flat Memory Intact: Comment (unable to assess) Hallucinations: Other (unable to assess) Delusions: Yes (unable to assess) Delusion Type: Other Suicidal: Ideation (unable to assess) Homicidal: Ideation (unable to assess) Insight/Judgment absent Remarks No hand tremor. Mild cog-wheeling. No other motor abnormalities. Labs Labs reviewed. Vitals/IOs Vital Signs Date Time Temp Pulse Resp B/P (MAP) Pulse Ox O2 Delivery O2 Flow Rate FiO2 07/26/17 05:39 97.4 55 16 126/69 (88) 96 Assessment & Plan Problem List: (1) Psychosis ICD Codes: F29 - Unspecified psychosis not due to a substance or known physiological condition Assessment & Plan Suspect sedation is from ETO received overnight. I will check a CBC, CMP and UA as a precaution. Need for ETO suggests we should titrate patient's Seroquel , but since it is not clear if patient would have been sedated from Seroquel alone, I think it best at this time to leave his Seroquel dose unchanged. Continue to monitor on high acuity unit. Continue other medications and care as ordered. Patient's case was presented to the [place] act court and placed in continuance for a period of 4 weeks. Justification for Cont. Inpt. High risk for decompensation in less restrictive environment Discharge Planning Pending psychiatric stabilization Request HC Surrog/Guard Advoc?: Yes Problem Qualifiers (1) Psychosis: Qualified Codes: F28 - Other psychotic disorder not due to a substance or known physiological condition Reinaldo Guadalupe MD Jul 26, 2017 11:33
[2017-07-26 17:52] VITALS: BP 103/58; PULSE 70; RESP 18; TEMP 98.7; O2SAT 100
[2017-07-26] MEDS: QUEtiapine FUMARATE 200 MG TAB PO SCH (20:57)
[2017-07-27 02:17] LABS: BLOOD, URINE NEG (NEG); COMMENT (UR) CULT NOT INDICATED; CULTURE IF INDICATED CULT NOT INDICATED; GLUCOSE,URINE NEG (NEG); KETONE, URINE NEG (NEG); MUCUS URINE FEW /lpf (OCC); NITRITE,URINE NEG (NEG); PH, URINE 5.5 (5.0-8.5); URINE COLOR YELLOW (YELLW/STRAW)
[2017-07-27 06:15] VITALS: BP 121/81; PULSE 84; RESP 18; TEMP 97.5; O2SAT 94
[2017-07-27] MEDS: QUEtiapine FUMARATE 100 MG TAB PO SCH ×2 (08:23→20:41)
--- NOTE | 2017-07-27 10:30 | HHI.PYPN ---
Subjective Remarks Patient seen and examined. Chart reviewed. Case discussed with nursing staff. No behavioral issues overnight. On my examination today, the patient is much more awake and interactive. He continues to display some thought blocking, and his thought content generally is quite vague. He is oriented to person only. When I ask about suicidal or homicidal ideation, he simply giggles. Denies side effects from medications. No physical complaints. Review of Systems ROS Limitations: Psychotic, Poor Historian Except as stated in HPI: all other systems reviewed are Neg Objective Alert: Yes [place]: Person Mood: Calm Affect: Flat Memory Intact: Comment (not formally assessed) Hallucinations: Auditory (Appears int stim) Delusions: Yes Delusion Type: Paranoid Suicidal: Ideation (No SI voiced but see above) Homicidal: Ideation (No HI voiced but see above) Insight/Judgment Poor Remarks Resting tremor. TP slowed with thought blocking. General poverty of thought. Speech somewhat rambling and vague. Grooming and hygiene fair at best. Labs Test 07/27/17 01:30 Urine Color YELLOW Urine Turbidity CLEAR Urine pH 5.5 Urine Specific [place] 1.023 Urine Protein TRACE mg/dL Urine Glucose (UA) NEG mg/dL Urine Ketones NEG mg/dL Urine Occult Blood NEG Urine Nitrite NEG Urine Bilirubin NEG Urine Urobilinogen LESS THAN 2.0 MG/DL Urine Leukocyte Esterase NEG Urine RBC 4 /hpf Urine WBC 1 /hpf Urine Mucus FEW /lpf Microscopic Urinalysis Comment CULT NOT INDICATED Labs reviewed. CBC unremarkable. CMP reveals improving GFR. Urinalysis bland. Vitals/IOs Vital Signs Date Time Temp Pulse Resp B/P (MAP) Pulse Ox O2 Delivery O2 Flow Rate FiO2 07/27/17 06:15 97.5 84 18 121/81 (94) 94 Assessment & Plan Problem List: (1) Psychosis ICD Codes: F29 - Unspecified psychosis not due to a substance or known physiological condition Assessment & Plan Based on observation on unit, suspect schizophrenia, perhaps disorganized type, possibly with a component of overlying dementia. I will titrate patient's Seroquel to 100/250 mg to target psychotic symptoms. To consider further titration of this agent over the weekend. I will also add a scheduled dose of anticholinergic, Cogentin 0.5 mg twice daily for patient's tremors. Continue to monitor on the high acuity unit. Continue other medications and care as ordered. Justification for Cont. Inpt. Impairment in reality construction. Medication changes. High risk for decompensation in less restrictive environment. Discharge Planning pending stabilization. May require placement. Request HC Surrog/Guard Advoc?: Yes Problem Qualifiers (1) Psychosis: Qualified Codes: F28 - Other psychotic disorder not due to a substance or known physiological condition Reinaldo Guadalupe MD Jul 27, 2017 10:30
[2017-07-27 11:09] LABS: AUTOMATED NEUTROPHIL # 3.9 TH/MM3 (1.8-7.7); BASOPHIL % 0.4 % (0.0-2.0); EOSINOPHIL # 0.1 TH/MM3 (0-0.4); HEMATOCRIT 45.4 % (39.0-51.0); HEMO FLAGS DIFF FINAL; LYMPH % 23.6 % (9.0-44.0); LYMPHOCYTE # 1.4 TH/MM3 (1.0-4.8); MEAN CELL VOLUME 90.5 FL (80.0-100.0); MEAN CORPUSCULAR HEMOGLOBIN 30.2 PG (27.0-34.0); MEAN CORPUSCULAR HGB CONC 33.3 % (32.0-36.0); MONO % 8.9 % (0.0-8.0); NEUT % 66.1 % (16.0-70.0); PLATELET COUNT 298 TH/MM3 (150-450); RED BLOOD COUNT 5.02 MIL/MM3 (4.50-5.90); RED CELL DISTRIBUTION WIDTH 13.2 % (11.6-17.2); WHITE BLOOD COUNT 5.9 TH/MM3 (4.0-11.0)
[2017-07-27] MEDS: BENZTROPINE MESYLATE 1 MG TAB PO PRN (11:28)
[2017-07-27 11:32] LABS: ANION GAP 8 MEQ/L (5-15); AST (GOT) 22 U/L (15-37); BLOOD UREA NITROGEN 18 MG/DL (7-18); CHLORIDE 106 MEQ/L (98-107); GLOMERULAR FILTRATION RATE 87 ML/MIN (>89); POTASSIUM 3.8 MEQ/L (3.5-5.1); SODIUM (NA) 142 MEQ/L (136-145)
[2017-07-27 11:37] LABS: ALKALINE PHOSPHATASE 70 U/L (45-117); ALT (GPT) 31 U/L (12-78); TOTAL BILIRUBIN ADULT 0.9 MG/DL (0.2-1.0)
[2017-07-27 18:23] VITALS: BP 131/76; PULSE 76; RESP 18; TEMP 98.8; O2SAT 98
[2017-07-27] MEDS: BENZTROPINE MESYLATE 1 MG TAB PO SCH (20:41)
[2017-07-27] MEDS: HALOPERIDOL LACTATE 5 MG/ML AMP IM PRN (22:18)
[2017-07-28 05:36] VITALS: BP 122/78; PULSE 82; RESP 18; TEMP 97.6; O2SAT 95
[2017-07-28] MEDS: BENZTROPINE MESYLATE 1 MG TAB PO SCH ×2 (08:44→20:15)
[2017-07-28] MEDS: QUEtiapine FUMARATE 100 MG TAB PO SCH ×2 (08:44→20:16)
--- NOTE | 2017-07-28 13:10 | HHI.PYPN ---
Subjective Remarks Patient seen and case discussed with nurse. Labs reviewed. Patient continues to be easily confused and appears to be responding to internal stimuli. Review of Systems Except as stated in HPI: all other systems reviewed are Neg Objective Alert: Yes [place]: Person Mood: Calm Affect: Flat Memory Intact: Comment (not formally assessed) Hallucinations: Auditory (Appears int stim) Delusions: Yes Delusion Type: Paranoid Suicidal: Ideation (No SI voiced but see above) Homicidal: Ideation (No HI voiced but see above) Insight/Judgment Impaired Vitals/IOs Vital Signs Date Time Temp Pulse Resp B/P (MAP) Pulse Ox O2 Delivery O2 Flow Rate FiO2 07/28/17 05:36 97.6 82 18 122/78 (93) 95 Assessment & Plan Problem List: (1) Psychosis ICD Codes: F29 - Unspecified psychosis not due to a substance or known physiological condition Assessment & Plan Estimated LOS: days remains internally preoccupied. Continue current antipsychotic regimen. Justification for Cont. Inpt. Unable to care for self Request HC Surrog/Guard Advoc?: Yes Problem Qualifiers (1) Psychosis: Qualified Codes: F28 - Other psychotic disorder not due to a substance or known physiological condition Godwin Lindsay MD Jul 28, 2017 13:10
[2017-07-28 17:30] VITALS: BP 116/72; PULSE 75; RESP 17; TEMP 98.2; O2SAT 96
[2017-07-28] MEDS: LORazepam 1 MG TAB PO PRN (20:16)
[2017-07-28] MEDS: HALOPERIDOL 5 MG TAB PO PRN (23:56)
[2017-07-28] MEDS: diphenhydrAMINE HCL 50 MG CAP - HS PRN PO (23:56)
[2017-07-29 05:53] VITALS: BP 129/78; PULSE 94; RESP 18; TEMP 97.3; O2SAT 97
[2017-07-29] MEDS: QUEtiapine FUMARATE 100 MG TAB PO SCH ×2 (08:42→21:44)
[2017-07-29] MEDS: BENZTROPINE MESYLATE 1 MG TAB PO SCH ×2 (08:42→21:44)
--- NOTE | 2017-07-29 13:23 | HHI.PYPN ---
Subjective Remarks Patient seen and examined with nurse. Chart reviewed. Case discussed with nursing staff reports the patient remains quite confused and intermittently agitated, particularly at night. He did require Haldol last evening. On my examination today, the patient remains quite confused. He stares intently at a small hole in his bed sheet and then at a spot on the floor. Nurse engaged him earlier in a drawing task, and she notes he responds well when given small, simple tasks. Affect is more reactive. No SI or HI. No side effects from medications. No physical complaints. Review of Systems ROS Limitations: Poor Historian Except as stated in HPI: all other systems reviewed are Neg Objective Alert: Yes [place]: Person Mood: Calm Affect: Other (fairly full and reactive) Memory Intact: Comment (not formally assessed) Hallucinations: Other (no AVH) Delusions: No Delusion Type: Other (no delusions) Suicidal: Ideation (no SI) Homicidal: Ideation (no HI) Insight/Judgment Poor Remarks Tremor considerably improved with addition of Cogentin. No other motor abnormalities noted. Paucity of thought noted. Grooming and hygiene fair at best. Labs Labs reviewed. Vitals/IOs Vital Signs Date Time Temp Pulse Resp B/P (MAP) Pulse Ox O2 Delivery O2 Flow Rate FiO2 07/29/17 05:53 97.3 94 18 129/78 (95) 97 Assessment & Plan Problem List: (1) Psychosis ICD Codes: F29 - Unspecified psychosis not due to a substance or known physiological condition Assessment & Plan Definitely taking on more of a dementia presentation as psychosis abates. Titrate Seroquel to 100/300 mg to try to get a better handle on nocturnal agitation. Continue to monitor on the high acuity unit. Continue other medications and care as ordered. Justification for Cont. Inpt. Medication changes. High risk for decompensation in less restrictive environment. Discharge Planning Placement likely required Request HC Surrog/Guard Advoc?: Yes Problem Qualifiers (1) Psychosis: Qualified Codes: F28 - Other psychotic disorder not due to a substance or known physiological condition Reinaldo Guadalupe MD Jul 29, 2017 13:23
[2017-07-29 18:17] VITALS: BP 146/76; PULSE 98; RESP 17; TEMP 98; O2SAT 98
[2017-07-29] MEDS: LORazepam 1 MG TAB PO PRN (20:09)
[2017-07-30 06:16] VITALS: BP 112/64; PULSE 67; RESP 17; O2SAT 96
[2017-07-30] MEDS: QUEtiapine FUMARATE 100 MG TAB PO SCH ×2 (08:48→21:47)
[2017-07-30] MEDS: BENZTROPINE MESYLATE 1 MG TAB PO SCH ×2 (08:48→21:47)
--- NOTE | 2017-07-30 12:33 | HHI.PYPN ---
Subjective Remarks Patient seen and examined with nurse. Chart reviewed. Case discussed with nursing staff who reports that the patient remains somewhat intrusive, confused and disoriented. On my examination today, the patient is much more interactive and sociable but remains disorganized and confused. He is not wearing any pants but does not seem troubled by this. He also has a difficulty with figuring out how to use the sink. Denies SI/HI. Denies AVH. Denies side effects from medications. No physical complaints. Review of Systems ROS Limitations: Poor Historian Except as stated in HPI: all other systems reviewed are Neg Objective Alert: Yes [place]: Person Mood: Calm Affect: Euthymic Memory Intact: Comment (not formally assessed) Hallucinations: Other (denies AVH) Delusions: No Delusion Type: Other (no delusions) Suicidal: Ideation (denies SI) Homicidal: Ideation (denies HI) Insight/Judgment Poor Remarks Mild interval worsening of patient's tremor since we titrated his Seroquel. No other motoric abnormalities noted. Labs Labs reviewed. Vitals/IOs Vital Signs Date Time Temp Pulse Resp B/P (MAP) Pulse Ox O2 Delivery O2 Flow Rate FiO2 07/30/17 06:16 67 17 112/64 (80) 96 07/29/17 18:17 98.0 Intake and Output 07/30/17 07/30/17 07/31/17 08:00 16:00 00:00 Intake Total 240 ml 0 ml Balance 240 ml 0 ml Assessment & Plan Problem List: (1) Psychosis ICD Codes: F29 - Unspecified psychosis not due to a substance or known physiological condition Assessment & Plan Titrate Cogentin to 1 mg twice daily to target EPS. Continue Seroquel as ordered. Continue to monitor on the inpatient unit. Continue other medications include aerosol ordered. Justification for Cont. Inpt. Med changes. Risk for decompensation. Discharge Planning Placement Request HC Surrog/Guard Advoc?: Yes Problem Qualifiers (1) Psychosis: Qualified Codes: F28 - Other psychotic disorder not due to a substance or known physiological condition Reinaldo Guadalupe MD Jul 30, 2017 12:33
[2017-07-30 18:23] VITALS: BP 147/87; PULSE 81; RESP 18; TEMP 98.2; O2SAT 98
[2017-07-31 06:05] VITALS: BP 119/57; PULSE 66; RESP 17; TEMP 98.1; O2SAT 97
[2017-07-31] MEDS: QUEtiapine FUMARATE 100 MG TAB PO SCH ×2 (08:37→20:53)
[2017-07-31] MEDS: BENZTROPINE MESYLATE 1 MG TAB PO SCH ×2 (08:37→20:53)
--- NOTE | 2017-07-31 08:52 | HHI.PYPN ---
Subjective Remarks Patient seen and examined with nurse. Chart reviewed. Case discussed in treatment team. On my examination today, patient remains confused with some word-finding difficulties. Affect is much brighter and more reactive versus admission, and patient is more sociable. Denies SI/HI. Denies AVH. Some apraxia noted, as when he tries to button his pants. No side effects from medications. No physical complaints. Review of Systems ROS Limitations: Poor Historian Except as stated in HPI: all other systems reviewed are Neg Objective Alert: Yes [place]: Person Mood: Calm Affect: Euthymic Memory Intact: Comment (Not assessed) Hallucinations: Other (No AVH) Delusions: No Delusion Type: Other (No agatha delusional material) Suicidal: Ideation (denies SI) Homicidal: Ideation (denies HI) Insight/Judgment Poor Remarks Tremor improved with increased dose of Cogentin. No new motor abnormalities noted. Thought process somewhat scattered with poverty of thought. Labs Labs reviewed. No new labs. Vitals/IOs Vital Signs Date Time Temp Pulse Resp B/P (MAP) Pulse Ox O2 Delivery O2 Flow Rate FiO2 07/31/17 06:05 98.1 66 17 119/57 (77 97 Assessment & Plan Problem List: (1) Psychosis ICD Codes: F29 - Unspecified psychosis not due to a substance or known physiological condition Assessment & Plan: Suspect dementia overlying chronic schizophrenia Assessment & Plan Continue Seroquel 100/300mg as ordered. Continue Cogentin 1mg BID. Continue to monitor on inpatient unit. Continue other medications and care as ordered. Justification for Cont. Inpt. Risk for decompensation Discharge Planning Patient with residual functional deficits, likely requires placement, and I have asked that counselor to pursue this with patient and family. Request HC Surrog/Guard Advoc?: Yes Problem Qualifiers (1) Psychosis: Qualified Codes: F28 - Other psychotic disorder not due to a substance or known physiological condition Reinaldo Guadalupe MD Jul 31, 2017 08:52
[2017-07-31 18:00] VITALS: BP 122/72; PULSE 94; RESP 18; TEMP 97.8; O2SAT 100
[2017-07-31] MEDS: LORazepam 1 MG TAB PO PRN (22:45)
[2017-07-31] MEDS: diphenhydrAMINE HCL 50 MG CAP - HS PRN PO (23:34)
[2017-08-01 06:04] VITALS: BP 129/84; PULSE 85; RESP 20; TEMP 97.2; O2SAT 98
[2017-08-01] MEDS: QUEtiapine FUMARATE 100 MG TAB PO SCH (08:51)
[2017-08-01] MEDS: BENZTROPINE MESYLATE 1 MG TAB PO SCH ×2 (08:51→21:00)
--- NOTE | 2017-08-01 10:11 | HHI.PYPN ---
Subjective Remarks Patient seen and examined with nurse. Chart reviewed. Case discussed with nursing staff who reports patient remains confused. He was apparently hallucinating bugs and spiders in his bed last night, although patient denies this now for me. He denies AVH at this time. Seems more blunted and negativistic today. Poverty of thought noted. No side effects from medications. No physical complaints. Nurse notes patient's brother was requesting an update re: dispo planning. Review of Systems ROS Limitations: Psychotic, Poor Historian Except as stated in HPI: all other systems reviewed are Neg Objective Alert: Yes [place]: Person Mood: Calm Affect: Blunted Memory Intact: Comment (Not assessed) Hallucinations: Other (Denies AVH at this time) Delusions: No Delusion Type: Other (None) Suicidal: Ideation (No SI) Homicidal: Ideation (No HI) Insight/Judgment Poor Remarks Poverty of thought, perhaps some thought blocking. Mild resting tremor. No other motor abnormalities. Grooming and hygiene fair at best. Labs Labs reviewed. Vitals/IOs Vital Signs Date Time Temp Pulse Resp B/P (MAP) Pulse Ox O2 Delivery O2 Flow Rate FiO2 08/01/17 06:04 97.2 85 20 129/84 (99) 98 Assessment & Plan Problem List: (1) Psychosis ICD Codes: F29 - Unspecified psychosis not due to a substance or known physiological condition Assessment & Plan Titrate Seroquel to 100/350mg to target residual psychotic symptoms. Continue to monitor on inpatient unit. Continue other medications and care as ordered. Justification for Cont. Inpt. Med changes. Risk for decompensation in less restrictive environment. Discharge Planning Placement. I have asked counselor to update patient's brother re: dispo plan. Request HC Surrog/Guard Advoc?: Yes Problem Qualifiers (1) Psychosis: Qualified Codes: F28 - Other psychotic disorder not due to a substance or known physiological condition Reinaldo Guadalupe MD Aug 01, 2017 10:11
[2017-08-01] MEDS: LORazepam 1 MG TAB PO PRN ×2 (13:54→19:34)
[2017-08-01] MEDS: HALOPERIDOL 5 MG TAB PO PRN ×2 (15:44→19:34)
[2017-08-01] MEDS ORDERED: QUEtiapine FUMARATE 100 MG TAB PO SCH (21:00)
[2017-08-01] MEDS: diphenhydrAMINE HCL 50 MG/ML VIAL - HS PRN IM (22:15)
[2017-08-02] MEDS: HALOPERIDOL LACTATE 5 MG/ML AMP IM PRN (01:51)
[2017-08-02 05:54] VITALS: BP 111/75; PULSE 79; RESP 16; TEMP 98; O2SAT 96
[2017-08-02 06:01] VITALS: PULSE 79; RESP 16; TEMP 98; O2SAT 96
[2017-08-02] MEDS: BENZTROPINE MESYLATE 1 MG TAB PO SCH ×2 (07:55→21:29)
[2017-08-02] MEDS: QUEtiapine FUMARATE 100 MG TAB PO SCH (07:57)
--- NOTE | 2017-08-02 09:18 | HHI.PYPN ---
Subjective Remarks Patient seen and examined with nurse. Chart reviewed. Case discussed with nursing. Patient had to be transferred to 2700 unit overnight for disorganized behavior. Once on the 2700 unit, patient apparently defecated in a trash can and tried to disrobe. On my exam today, patient presents as disorganized with significant thought blocking, in march respects similar to his initial presentation. When I inquire about his behavior overnight, he will only say, "it's possible." Denies AVH but appears internally stimulated. Denies physical symptoms. No side effects from medications. Patient insists he is adherent with meds. Review of Systems ROS Limitations: Psychotic, Poor Historian Except as stated in HPI: all other systems reviewed are Neg Objective Alert: Yes [place]: Person Mood: Anxious Affect: Flat Memory Intact: Comment (Not assessed) Hallucinations: Auditory (Appears int stim) Delusions: Yes Delusion Type: Paranoid Suicidal: Ideation (No SI) Homicidal: Ideation (No HI) Insight/Judgment Poor Remarks More EPS on exam, hand tremor more prominent. TP with thought blocking. Speech rambling, sparse. Labs Labs reviewed. No new labs. Vitals/IOs Vital Signs Date Time Temp Pulse Resp B/P (MAP) Pulse Ox O2 Delivery O2 Flow Rate FiO2 08/02/17 06:01 98.0 79 16 96 08/02/17 05:54 111/75 (87) Assessment & Plan Problem List: (1) Psychosis ICD Codes: F29 - Unspecified psychosis not due to a substance or known physiological condition Assessment & Plan Patient seems to have regressed; I am concerned about covert med non-adherence as a possible cause. Mouth checks. Titrate Seroquel to 100/400mg. Transfer to 2500 unit as this is likely best able to meet his current needs. Fall prec. Check updated set of basic labs as well as UA and consult hospitalist to investigate possible general medical causes of disorganized behavior, in particular with respect to his excretory functions. Continue other medications and care as ordered. Justification for Cont. Inpt. Impairment in self-care. Impairment in reality construction. Medication changes. High risk for decompensation in less restrictive environment. Discharge Planning Likely requires placement once psychiatrically stabilized Request HC Surrog/Guard Advoc?: Yes Problem Qualifiers (1) Psychosis: Qualified Codes: F28 - Other psychotic disorder not due to a substance or known physiological condition Reinaldo Guadalupe MD Aug 02, 2017 09:18
[2017-08-02 16:18] VITALS: BP 132/65; PULSE 82; RESP 16; TEMP 98; O2SAT 99
[2017-08-02] MEDS ORDERED: QUEtiapine FUMARATE 100 MG TAB PO SCH (21:00)
[2017-08-02] MEDS: diphenhydrAMINE HCL 50 MG CAP - HS PRN PO (21:30)
[2017-08-02] MEDS: HALOPERIDOL 5 MG TAB PO PRN (23:05)
[2017-08-03 05:32] VITALS: BP 103/66; PULSE 68; RESP 17; TEMP 97.3
--- NOTE | 2017-08-03 08:42 | HHI.PYPN ---
Subjective Remarks Patient seen and examined. Chart reviewed. Case discussed with nursing staff who reports that the patient was somewhat confused and agitated overnight and required Haldol and Ativan after which he slept ~6 hours. On my examination this morning, the patient is sitting in a Mikayla chair. He is somewhat restless and fidgety. Affect is more euthymic today. He is pleased to have been moved to the 2500 unit and describes it as "the best one." Ongoing thought disorganization noted. No new side effects from meds. No physical complaints. Review of Systems ROS Limitations: Psychotic, Poor Historian Except as stated in HPI: all other systems reviewed are Neg Objective Alert: Yes [place]: Person Mood: Calm Affect: Flat Memory Intact: Comment (Not assessed) Hallucinations: Other (No AVH) Delusions: No Delusion Type: Other (No delusions) Suicidal: Ideation (No SI) Homicidal: Ideation (No HI) Insight/Judgment Poor Remarks TP disorganized. Speech somewhat rambling. Remains a little tremulous, but less so today versus yesterday. No other motoric abnormalities noted. Labs Labs reviewed. CBC and CMP unremarkable. Glucose mildly elevated, but this was a non-fasting sample. UA not yet available for my review. Vitals/IOs Vital Signs Date Time Temp Pulse Resp B/P (MAP) Pulse Ox O2 Delivery O2 Flow Rate FiO2 08/03/17 05:32 97.3 68 17 103/66 (78) 08/02/17 16:18 99 Assessment & Plan Problem List: (1) Psychosis ICD Codes: F29 - Unspecified psychosis not due to a substance or known physiological condition Assessment & Plan Titrate Seroquel through the weekend to 100/500mg in light of ongoing disorganization and need for PRNs overnight. Monitor for possible akathisia. I will titrate Cogentin to 1mg TID for EPS. Dulcolax PRN as anticholinergics can cause constipation. PT eval. Falls prec remain in place. Awaiting hospitalist input. Continue to monitor on geropsych unit. Continue other meds and care as ordered. Justification for Cont. Inpt. Impairment in reality construction. High risk for decompensation in less restrictive environment. Med changes. Discharge Planning Counselor is working on placement. Request HC Surrog/Guard Advoc?: Yes Problem Qualifiers (1) Psychosis: Qualified Codes: F28 - Other psychotic disorder not due to a substance or known physiological condition Reinaldo Guadalupe MD Aug 03, 2017 08:42
[2017-08-03] MEDS: BENZTROPINE MESYLATE 1 MG TAB PO SCH ×2 (09:43→21:44)
[2017-08-03] MEDS: QUEtiapine FUMARATE 100 MG TAB PO SCH ×2 (09:43→21:44)
[2017-08-03 11:53] LABS: AUTOMATED NEUTROPHIL # 4.3 TH/MM3 (1.8-7.7); BASOPHIL % 0.2 % (0.0-2.0); EOSINOPHIL # 0.1 TH/MM3 (0-0.4); EOSINOPHIL % 2.2 % (0.0-4.0); HEMATOCRIT 43.3 % (39.0-51.0); HEMO FLAGS DIFF FINAL; LYMPHOCYTE # 1.3 TH/MM3 (1.0-4.8); MEAN CELL VOLUME 90.3 FL (80.0-100.0); MEAN CORPUSCULAR HGB CONC 33.2 % (32.0-36.0); MONO % 8.9 % (0.0-8.0); NEUT % 67.7 % (16.0-70.0); PLATELET COUNT 299 TH/MM3 (150-450); WHITE BLOOD COUNT 6.4 TH/MM3 (4.0-11.0)
[2017-08-03 12:15] LABS: ALT (GPT) 33 U/L (12-78); ANION GAP 4 MEQ/L (5-15); AST (GOT) 29 U/L (15-37); BICARBONATE 30.5 MEQ/L (21.0-32.0); BLOOD UREA NITROGEN 15 MG/DL (7-18); CHLORIDE 106 MEQ/L (98-107); GLOMERULAR FILTRATION RATE 92 ML/MIN (>89); POTASSIUM 3.6 MEQ/L (3.5-5.1); SODIUM (NA) 140 MEQ/L (136-145)
[2017-08-03 12:17] LABS: ALKALINE PHOSPHATASE 69 U/L (45-117)
[2017-08-03] MEDS ORDERED: BISACODYL EC 5 MG TABEC PO PRN (13:45)
--- NOTE | 2017-08-03 16:48 | PD.CONS ---
HPI Service [facility] Consult Requested By Dr. Lomas. Reason for Consult Urinary and bowel incontinence. Primary Care Physician Troy Call MD Diagnoses: (1) Bowel and bladder incontinence (2) Adjustment disorder (3) Psychosis History of Present Illness Written by Nivia Hernandez, acting as scribe for Dr. Burleson on 08/03/17 at 16:48. Mr. Johnson is a 57-year-old male patient with a known medical history of adjustment disorder and psychosis who arrived to the hospital under Hummel Act with auditory hallucinations and paranoia. Hospitalist has been consulted for medical management for bowel and bladder incontinence. Patient seen and examined sitting in chair. Very poor historian, unable to provide any medical history. Most obtained from EMR. Spoke to RN regarding patient condition who states he has occasional incontinence but most of the time uses the restroom. Agrees to obtaining a UA sample and will follow. Patient denies any pain. Patient states he is fine and noncoherent throughout the assessment. Review of Systems ROS Limitations: Clinical Condition, Poor Historian Past Family Social History Allergies: Coded Allergies: No Known Allergies (Verified Allergy, Severe, 07/16/17) Past Medical History Adjustment disorder Unable to obtain other medical history. Past Surgical History Unable to obtain. Reported Medications Reported Meds & Active Scripts Active No Active Prescriptions or Reported Medications Active Ordered Medications Current Medications Medications (Trade) Dose Ordered Sig/Ally Route Start Time Stop Time Status Last Admin (Ativan) 1 mg Q6H PRN PO 07/18/17 03:00 08/01/17 19:34 (Ativan Inj) 1 mg Q6H PRN IM 07/18/17 03:00 08/03/17 00:00 (Cogentin) 1 mg Q12H PRN PO 07/18/17 03:00 07/27/17 11:28 (Cogentin Inj) 1 mg Q12H PRN IM 07/18/17 03:00 (Benadryl) 50 mg HS PRN PO 07/18/17 03:00 08/02/17 21:30 (Benadryl Inj) 50 mg HS PRN IM 07/18/17 03:00 08/01/17 22:15 (Tylenol) 650 mg Q4H PRN PO 07/18/17 03:00 (Milk Of Magnesia Liq) 30 ml DAILY PRN PO 07/18/17 03:00 (Mag-Al Plus Susp Liq) 30 ml Q6H PRN PO 07/18/17 03:00 (Haldol) 5 mg Q6H PRN PO 07/18/17 09:15 08/02/17 23:05 (Haldol Inj) 5 mg Q6H PRN IM 07/18/17 09:15 08/02/17 01:51 (Pill Splitter) 1 ea UNSCH PRN OTHER 07/24/17 13:00 (SEROquel) 100 mg DAILY PO 07/26/17 09:00 08/03/17 09:43 (Dulcolax Ec) 10 mg DAILY PRN PO 08/03/17 13:45 (SEROquel) 450 mg Taper HS PO 08/03/17 21:00 08/14/17 20:59 (Cogentin) 1 mg DAILY@0900,1300,2100 PO 08/03/17 21:00 Family History Unable to obtain. Social History Unable to obtain. Physical Exam Vital Signs Vital Signs Date Time Temp Pulse Resp B/P (MAP) Pulse Ox O2 Delivery O2 Flow Rate FiO2 08/03/17 05:32 97.3 68 17 103/66 (78) Physical Exam GENERAL: This is a well-nourished, well-developed patient, in no apparent distress. SKIN: No rashes, ecchymoses or lesions. Cool and dry. HEAD: Atraumatic. Normocephalic. No temporal or scalp tenderness. EYES: Pupils equal round and reactive. Extraocular motions intact. No scleral icterus. No injection or drainage. ENT: Nose without bleeding, purulent drainage or septal hematoma. Throat without erythema, tonsillar hypertrophy or exudate. Uvula midline. Airway patent. NECK: Trachea midline. No JVD or lymphadenopathy. Supple, nontender, no meningeal signs. CARDIOVASCULAR: Regular rate and rhythm without murmurs, gallops, or rubs. RESPIRATORY: Clear to auscultation. Breath sounds equal bilaterally. No wheezes , rales, or rhonchi. GASTROINTESTINAL: Abdomen soft, non-tender, nondistended. No hepato-splenomegaly , or palpable masses. No guarding. MUSCULOSKELETAL: Extremities without clubbing, cyanosis, or edema. No joint tenderness, effusion, or edema noted. No calf tenderness. Negative Homans sign bilaterally. NEUROLOGICAL: Awake and alert. Cranial nerves II through XII intact. Motor and sensory grossly within normal limits. Five out of 5 muscle strength in all muscle groups. Normal speech. Laboratory Laboratory Tests Test 08/03/17 11:42 White Blood Count 6.4 Red Blood Count 4.80 Hemoglobin 14.4 Hematocrit 43.3 Mean Corpuscular Volume 90.3 Mean Corpuscular Hemoglobin 30.0 Mean Corpuscular Hemoglobin Concent 33.2 Red Cell Distribution Width 13.0 Platelet Count 299 Mean Platelet Volume 8.7 Neutrophils (%) (Auto) 67.7 Lymphocytes (%) (Auto) 21.0 Monocytes (%) (Auto) 8.9 Eosinophils (%) (Auto) 2.2 Basophils (%) (Auto) 0.2 Neutrophils # (Auto) 4.3 Lymphocytes # (Auto) 1.3 Monocytes # (Auto) 0.6 Eosinophils # (Auto) 0.1 Basophils # (Auto) 0.0 CBC Comment DIFF FINAL Differential Comment Blood Urea Nitrogen 15 Creatinine 0.85 Random Glucose 135 Total Protein 6.8 Albumin 3.6 Calcium Level 8.4 Alkaline Phosphatase 69 Aspartate Amino Transf (AST/SGOT) 29 Alanine Aminotransferase (ALT/SGPT) 33 Total Bilirubin 1.0 Sodium Level 140 Potassium Level 3.6 Chloride Level 106 Carbon Dioxide Level 30.5 Anion Gap 4 Estimat Glomerular Filtration Rate 92 Result Diagram: 08/03/17 1142 08/03/17 1142 Imaging Last Impressions Brain MRI 07/21/17 0000 Signed Impressions: Service Date/Time: Friday, July 21, 2017 16:22 - CONCLUSION: Negative exam with no evidence of hemorrhage, mass or stroke. Rolf Pineda MD Head CT 07/19/17 0000 Signed Impressions: Service Date/Time: Thursday, July 20, 2017 10:30 - CONCLUSION: Normal examination. Alex Aparicio Jr., MD Assessment and Plan Assessment and Plan Mr. Johnson is a 57-year-old male patient with a known medical history of adjustment disorder and psychosis who arrived to the hospital under Hummel Act with auditory hallucinations and paranoia. Hospitalist has been consulted for medical management for bowel and bladder incontinence. Adjustment disorder Schizophrenia Psychosis - Management per primary team. Continue Seroquel, Cogentin. Bowel and bladder incontinence - Previous UA reviewed, unremarkable. - Primary team ordered for additional UA. Will follow. DVT Prophylaxis: Ambulation. Thank you for this consult, will follow with you. This note was transcribed by scribaniceto [[email or web address]]. I, Dr. Nelida Burleson personally performed the history, physical exam, and medical decision making; and confirmed the accuracy of the information in the transcribed note. Authenticated by Dr. Nelida Burleson on 08/03/17 at 18:23. Problem Qualifiers (1) Adjustment disorder: Qualified Codes: F43.20 - Adjustment disorder, unspecified (2) Psychosis: Qualified Codes: F28 - Other psychotic disorder not due to a substance or known physiological condition Nivia Hernandez Aug 03, 2017 16:48 Nelida Burleson MD Aug 03, 2017 18:23
[2017-08-03 16:52] VITALS: BP 114/88; PULSE 74; RESP 16; TEMP 97.1; O2SAT 96
[2017-08-03] MEDS: LORazepam 1 MG TAB PO PRN (21:44)
[2017-08-03] MEDS: diphenhydrAMINE HCL 50 MG CAP - HS PRN PO (21:44)
[2017-08-03] MEDS: LORazepam 2 MG/ML VIAL IM PRN ×2 (23:19)
[2017-08-03] MEDS: HALOPERIDOL LACTATE 5 MG/ML AMP IM PRN (23:19)
[2017-08-04 06:15] VITALS: BP 109/67; PULSE 66; RESP 16; TEMP 98; O2SAT 96
[2017-08-04] MEDS: QUEtiapine FUMARATE 100 MG TAB PO SCH ×2 (08:01→20:56)
[2017-08-04] MEDS: BENZTROPINE MESYLATE 1 MG TAB PO SCH ×3 (08:01→20:59)
--- NOTE | 2017-08-04 14:39 | HHI.PR ---
Subjective Remarks in no distress. denies pain. d/w the RN and no acute or new issues over night. Objective Vitals Vital Signs Date Time Temp Pulse Resp B/P (MAP) Pulse Ox O2 Delivery O2 Flow Rate FiO2 08/04/17 06:15 98.0 66 16 109/67 (81) 96 08/03/17 16:52 97.1 74 16 114/88 (97) 96 I/O 08/03/17 08/03/17 08/03/17 08/04/17 08/04/17 08/04/17 07:00 15:00 23:00 07:00 15:00 23:00 Intake Total 888 ml 0 ml Balance 888 ml 0 ml Intake Oral 888 ml 0 ml # Voids 0 Result Diagram: 08/03/17 1142 08/03/17 1142 Imaging Last Impressions Brain MRI 07/21/17 0000 Signed Impressions: Service Date/Time: Friday, July 21, 2017 16:22 - CONCLUSION: Negative exam with no evidence of hemorrhage, mass or stroke. Rolf Pineda MD Head CT 07/19/17 0000 Signed Impressions: Service Date/Time: Thursday, July 20, 2017 10:30 - CONCLUSION: Normal examination. Alex Aparicio Jr., MD Objective Remarks GENERAL: This is a well-nourished, well-developed patient, in no apparent distress. CARDIOVASCULAR: Regular rate and regular rhythm without murmurs, gallops, or rubs. RESPIRATORY: Clear to auscultation. Breath sounds equal bilaterally. No wheezes , rales, or rhonchi. GASTROINTESTINAL: Abdomen soft, non-tender, nondistended. Normal, active bowel sounds MUSCULOSKELETAL: Extremities without clubbing, cyanosis, or edema. NEURO: awake and alert. Medications and IVs Current Medications Lorazepam (Ativan) 1 mg Q6H PRN PO MODERATE TO SEVERE ANXIETY Last administered on 08/03/17 21:44; Start 07/18/17 at 03:00 Lorazepam (Ativan Inj) 1 mg Q6H PRN IM MODERATE TO SEVERE ANXIETY Last administered on 08/03/17 23:19; Start 07/18/17 at 03:00 Benztropine Mesylate (Cogentin) 1 mg Q12H PRN PO EXTRA PYRAMIDAL SYMPTOMS Last administered on 07/27/17 11:28; Start 07/18/17 at 03:00 Benztropine Mesylate (Cogentin Inj) 1 mg Q12H PRN IM EXTRA PYRAMIDAL SYMPTOMS; Start 07/18/17 at 03:00 Diphenhydramine HCl (Benadryl) 50 mg HS PRN PO INSOMNIA Last administered on 21:44; Start 07/18/17 at 03:00 Diphenhydramine HCl (Benadryl Inj) 50 mg HS PRN IM INSOMNIA Last administered on 08/01/17 22:15; Start 07/18/17 at 03:00 Acetaminophen (Tylenol) 650 mg Q4H PRN PO Pain 1-5 or Temp >101F; Start at 03:00 Magnesium Hydroxide (Milk Of Magnesia Liq) 30 ml DAILY PRN PO CONSTIPATION; Start 07/18/17 at 03:00 Al Hydrox/Mg Hydrox/Simethicone (Mag-Al Plus Susp Liq) 30 ml Q6H PRN PO DYSPEPSIA; Start 07/18/17 at 03:00 Haloperidol (Haldol) 5 mg Q6H PRN PO AGITATION Last administered on 08/02/17 23:05; Start 07/18/17 at 09:15 Haloperidol Lactate (Haldol Inj) 5 mg Q6H PRN IM AGITATION, unable to take PO Last administered on 08/03/17 23:19; Start 07/18/17 at 09:15 Quetiapine Fumarate (SEROquel) 50 mg BID PO ; Start 07/19/17 at 21:00; Stop 07/20 at 13:43; Status DC Quetiapine Fumarate (SEROquel) 50 mg BID PO Last administered on 07/23/17 09:23 ; Start 07/20/17 at 21:00; Stop 07/23/17 at 12:53; Status DC Quetiapine Fumarate (SEROquel) 50 mg DAILY PO Last administered on 07/25/17 09: 50; Start 07/24/17 at 09:00; Stop 07/25/17 at 12:10; Status DC Quetiapine Fumarate (SEROquel) 100 mg HS PO Last administered on 07/23/17 21:28 ; Start 07/23/17 at 21:00; Stop 07/24/17 at 12:35; Status DC Quetiapine Fumarate (SEROquel) 150 mg HS PO Last administered on 07/24/17 21:03 ; Start 07/24/17 at 21:00; Stop 07/25/17 at 12:10; Status DC Miscellaneous (Pill Splitter) 1 ea UNSCH PRN OTHER SEE LABEL COMMENTS; Start at 13:00 Quetiapine Fumarate (SEROquel) 200 mg HS PO Last administered on 07/26/17 20:57 ; Start 07/25/17 at 21:00; Stop 07/27/17 at 12:54; Status DC Quetiapine Fumarate (SEROquel) 100 mg DAILY PO Last administered on 08/04/17 08:01; Start 07/26/17 at 09:00 Quetiapine Fumarate (SEROquel) 250 mg HS PO Last administered on 07/28/17 20:16 ; Start 07/27/17 at 21:00; Stop 07/29/17 at 13:14; Status DC Benztropine Mesylate (Cogentin) 0.5 mg Q12HR PO Last administered on 07/30/17 08:48; Start 07/27/17 at 21:00; Stop 07/30/17 at 12:33; Status DC Quetiapine Fumarate (SEROquel) 300 mg HS PO Last administered on 07/31/17 20: 53; Start 07/29/17 at 21:00; Stop 08/01/17 at 12:11; Status DC Benztropine Mesylate (Cogentin) 1 mg Q12HR PO Last administered on 08/03/17 09 :43; Start 07/30/17 at 21:00; Stop 08/03/17 at 14:17; Status DC Quetiapine Fumarate (SEROquel) 350 mg HS PO Last administered on 08/01/17 21: 00; Start 08/01/17 at 21:00; Stop 08/02/17 at 15:03; Status DC Quetiapine Fumarate (SEROquel) 400 mg HS PO Last administered on 08/02/17 21: 30; Start 08/02/17 at 21:00; Stop 08/03/17 at 13:47; Status DC Bisacodyl (Dulcolax Ec) 10 mg DAILY PRN PO No BM in 24 hours; Start 08/03/17 at 13:45 Quetiapine Fumarate (SEROquel) 450 mg Taper HS PO Last administered on 21:44; Start 08/03/17 at 21:00; Stop 08/14/17 at 20:59 Benztropine Mesylate (Cogentin) 1 mg DAILY@0900,1300,2100 PO Last administered on 08/04/17 13:00; Start 08/03/17 at 21:00 A/P Assessment and Plan Adjustment disorder Schizophrenia Psychosis - Management per primary team. Continue Seroquel, Cogentin. bladder incontinence - UA reviewed, unremarkable. DVT Prophylaxis: Ambulation. [facility] will sign off and see him as needed. d/w the RN. Ray Monroy MD Aug 04, 2017 14:39
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
[2017-08-04 18:18] VITALS: BP 115/63; PULSE 102; RESP 18; TEMP 98.8; O2SAT 96
[2017-08-04] MEDS: LORazepam 2 MG/ML VIAL IM PRN (23:39)
[2017-08-04] MEDS: HALOPERIDOL LACTATE 5 MG/ML AMP IM PRN (23:40)
[2017-08-05 05:30] VITALS: BP 123/71; PULSE 71; RESP 18; TEMP 97.4; O2SAT 100
[2017-08-05] MEDS: QUEtiapine FUMARATE 100 MG TAB PO SCH ×2 (08:48→21:21)
[2017-08-05] MEDS: BENZTROPINE MESYLATE 1 MG TAB PO SCH ×3 (08:48→21:22)
--- NOTE | 2017-08-05 14:56 | HHI.PYPN ---
Subjective Remarks Patient was seen and case discussed with nursing. Now outburst this morning. However he received an ETO last night. Sleepy this morning and nursing held Seroquel. Patient is internally preoccupied with paranoid delusions concerning a plane and landed in the field. Insight and hygiene is poor Objective Alert: Yes [place]: Person Mood: Anxious Affect: Restricted Memory Intact: Comment (Not assessed) Hallucinations: Other (No AVH) Delusions: No Delusion Type: Other (No delusions) Suicidal: Ideation (No SI) Homicidal: Ideation (No HI) Insight/Judgment Poor Vitals/IOs Vital Signs Date Time Temp Pulse Resp B/P (MAP) Pulse Ox O2 Delivery O2 Flow Rate FiO2 08/05/17 05:30 97.4 71 18 123/71 (88) 100 Intake and Output 08/05/17 08/05/17 08/06/17 08:00 16:00 00:00 Intake Total 240 ml Balance 240 ml Assessment & Plan Problem List: (1) Psychosis ICD Codes: F29 - Unspecified psychosis not due to a substance or known physiological condition Assessment & Plan Continue current treatment plan Justification for Cont. Inpt. Patient will decompensate in a less restrictive setting Request HC Surrog/Guard Advoc?: Yes Problem Qualifiers (1) Psychosis: Qualified Codes: F28 - Other psychotic disorder not due to a substance or known physiological condition Arpan Castaneda DO Aug 05, 2017 14:56
[2017-08-05 18:24] VITALS: BP 143/72; PULSE 111; RESP 18; TEMP 98.2; O2SAT 98
[2017-08-05] MEDS: HALOPERIDOL 5 MG TAB PO PRN (21:21)
[2017-08-05] MEDS: LORazepam 1 MG TAB PO PRN (21:21)
[2017-08-06 05:20] VITALS: BP 121/59; PULSE 89; RESP 20; TEMP 97.9; O2SAT 98
--- NOTE | 2017-08-06 08:35 | HHI.PYPN ---
Subjective Remarks Patient seen and examined. Chart reviewed. Case discussed with nursing staff who reports patient remains quite confused. Functional status continues to decline, and patient is noted by nursing staff to be almost total care at this point. On my exam, I find the patient sitting in a ravin chair in the day area. He is restless but not aggressive. He remains very confused and internally preoccupied and interacts little with this interviewer. No evident side effects from medications. No physical complaints. Review of Systems ROS Limitations: Psychotic, Poor Historian Except as stated in HPI: all other systems reviewed are Neg Objective Alert: Yes [place]: Person Mood: Other (Restless) Affect: Flat Memory Intact: Comment (Not assessed) Hallucinations: Other (None reported but appears internally preoccupied) Delusions: No Delusion Type: Other (None) Suicidal: Ideation (No SI) Homicidal: Ideation (No HI) Insight/Judgment Poor Remarks No new motor abnormalities noted, although the patient is a little restless. Resting tremor continues, mild. TP quite disorganized with poverty of thought. Speech rambling, almost nonsensical. Grooming and hygiene poor. Labs Labs reviewed. Vitals/IOs Vital Signs Date Time Temp Pulse Resp B/P (MAP) Pulse Ox O2 Delivery O2 Flow Rate FiO2 08/06/17 05:20 97.9 89 20 121/59 (79) 98 Assessment & Plan Problem List: (1) Psychosis ICD Codes: F29 - Unspecified psychosis not due to a substance or known physiological condition (2) Rule-out neurocognitive disorder Assessment & Plan Patient appears to be further decompensating with respect to his functional status and cognition. Seroquel seems to be of little benefit. We might consider a different antipsychotic, but I would like to broaden the differential to include non-psychiatric causes for patient's symptoms. I will ask the neurologist to return to eval patient for possible (rapidly progressive? ) dementing illness. I will discontinue Seroquel and scheduled Cogentin for now. Patient does have Haldol PRN available if needed. Continue to monitor on the geropsychiatric unit. Continue other medications and care as ordered. Justification for Cont. Inpt. Impairment in reality construction. Impairment in self-care. High risk for decompensation in less restrictive environment. Discharge Planning Possible placement. Pending psychiatric stabilization. Request HC Surrog/Guard Advoc?: Yes Problem Qualifiers (1) Psychosis: Qualified Codes: F28 - Other psychotic disorder not due to a substance or known physiological condition Reinaldo Guadalupe MD Aug 06, 2017 08:35
[2017-08-06] MEDS: QUEtiapine FUMARATE 100 MG TAB PO SCH (09:40)
[2017-08-06] MEDS: BENZTROPINE MESYLATE 1 MG TAB PO SCH (09:40)
[2017-08-06 18:18] VITALS: BP 113/65; PULSE 104; RESP 18; TEMP 97.3; O2SAT 98
[2017-08-07 05:55] VITALS: BP 146/83; PULSE 88; RESP 18; TEMP 98.3; O2SAT 98
--- NOTE | 2017-08-07 11:36 | HHI.PYPN ---
Subjective Remarks Patient seen and examined with nurse. Chart reviewed. Patient requires no PRNs overnight. Case discussed in treatment team. On my examination today, the patient seems more alert and interactive today. He remains fairly disorganized although his speech is a little less nonsensical. He says that he is feeling "magnificent since 4 days ago." He is unable to say why this is the case. Rambles about "a crummy matt." Oriented to person only. Gives location as "[facility] and type of building as "[place]." He gives the year as "twenty one, three." No side effects from medications. No physical complaints. Review of Systems ROS Limitations: Poor Historian Except as stated in HPI: all other systems reviewed are Neg Objective Alert: Yes [place]: Person Mood: Calm Affect: Blunted Memory Intact: Comment (Not assessed) Hallucinations: Other (No AVH) Delusions: No Delusion Type: Other (No delusions) Suicidal: Ideation (No SI) Homicidal: Ideation (No HI) Insight/Judgment Poor Remarks Mild resting hand tremor. TP remains quite disorganized. Speech a little more comprehensible today versus yesterday. Grooming and hygiene poor. Labs Labs reviewed. Vitals/IOs Vital Signs Date Time Temp Pulse Resp B/P (MAP) Pulse Ox O2 Delivery O2 Flow Rate FiO2 08/07/17 05:55 98.3 88 18 146/83 (104) 98 Intake and Output 08/07/17 08/07/17 08/08/17 08:00 16:00 00:00 Intake Total 120 ml Balance 120 ml Assessment & Plan Problem List: (1) Psychosis ICD Codes: F29 - Unspecified psychosis not due to a substance or known physiological condition (2) Rule-out neurocognitive disorder Assessment & Plan Patient seems improved off of Seroquel, although he remains quite disoriented and disorganized. Continue to observe off of scheduled antipsychotics and await neurology input into the case. Continue to monitor on the geropsychiatric unit. Continue other medications and care as ordered. Justification for Cont. Inpt. Impairment in reality construction. Risk for decompensation in less restrictive environment. Discharge Planning Placement likely. Case discussed with counselor. Request HC Surrog/Guard Advoc?: Yes Problem Qualifiers (1) Psychosis: Qualified Codes: F28 - Other psychotic disorder not due to a substance or known physiological condition Reinaldo Guadalupe MD Aug 07, 2017 11:36
--- NOTE | 2017-08-07 16:07 | PD.TTN ---
Patient Problems 1. Discharge planning 2. Medication compliance 3. Knowledge deficit 4. Lack of coping skills Progress Toward Goals Provider Present: Dr. González Guadalupe Provider Input: Dr. Guadalupe treatment team met to discuss treatment plan, discharge and medication. Patient has poor insight into his situaton. Medication will be added for mood stablization. Patient will either return home or an JOANN once discharged Nurse(s) Input: Patient's nurse Danette Soto reports patient has poor concentration, concerned with mother's wellbeing, brighter affect, tremerous, nervous 08/07 Bryn ; was lathargic yesterday mroe alert today Psychiatric Counselors Present: Dayna Woods LCSW, Cherelle Ramos, [facility] Psych Therapist Input: Patient presented anxious, nervous. affect blunted. Patient's speech was clear, organized with pressured. Patient made good eye contact.. Patient is exit seeking, focused on discharge. Patient is medication compliant. Patient is alert to person, place but has poor insight into his situation. 08/07 pt is more alert and able to respond today with limited eye contact and limited sensical conversation appears happy and smilse and talked with another pt but still not very oriented and confused Group Spec/RT/OT/ESPINAL Present: KYLIE Ramirez Group Spec/RT/OT/ESPINAL Input: Patient isolates to his room Occupational Therapist Input: no groups remains in [place] Chair on unit Dayna Woods LCSW Aug 07, 2017 16:07
[2017-08-07 18:44] VITALS: BP 112/55; PULSE 90; RESP 18; TEMP 99.1; O2SAT 94
[2017-08-07] MEDS: diphenhydrAMINE HCL 50 MG CAP - HS PRN PO (21:24)
[2017-08-07] MEDS: LORazepam 1 MG TAB PO PRN (23:37)
[2017-08-07] MEDS: HALOPERIDOL 5 MG TAB PO PRN (23:37)
[2017-08-08 05:57] VITALS: BP 144/71; PULSE 85; RESP 17; TEMP 97.6; O2SAT 97
--- NOTE | 2017-08-08 08:34 | HHI.PYPN ---
Subjective Remarks Patient seen and examined. Chart reviewed. Case discussed with nursing staff who reports that the patient slept only 3 hours overnight and was somewhat restless and yelling and so received Haldol and Ativan PRN. On my examination today, the patient presents as restless and disoriented. He gives his location as "[place]." He gives the month as "twelve and seven ten." Psychiatric interview is quite limited because of his degree of thought disorganization. No physical complaints. Review of Systems ROS Limitations: Poor Historian Except as stated in HPI: all other systems reviewed are Neg Objective Alert: Yes [place]: Person Mood: Calm Affect: Blunted (tending towards flat) Memory Intact: Comment (Not assessed) Hallucinations: Other (none) Delusions: No Delusion Type: Other (No delusions) Suicidal: Ideation (No SI) Homicidal: Ideation (No HI) Insight/Judgment Poor Remarks Some resting hand tremor. Mild cogwheeling. No other motoric abnormalities noted. Thought process disorganized. Grooming and hygiene poor. Labs Labs reviewed. Vitals/IOs Vital Signs Date Time Temp Pulse Resp B/P (MAP) Pulse Ox O2 Delivery O2 Flow Rate FiO2 08/08/17 05:57 97.6 85 17 144/71 (95) 97 Assessment & Plan Problem List: (1) Psychosis ICD Codes: F29 - Unspecified psychosis not due to a substance or known physiological condition (2) Rule-out neurocognitive disorder Assessment & Plan Patient with ongoing thought disorganization, possibly related to a psychotic illness. Initiate Abilify 5 mg daily as I suspect that it was in part the sedation from the Seroquel, especially at higher doses, that led to its poor tolerability and efficacy. Monitor for worsening of baseline parkinsonism with initiation of this agent. Neurologist to come evaluate the patient this afternoon per nursing staff. Continue to monitor on the geropsychiatric unit. Continue other medications and care as ordered. Justification for Cont. Inpt. Impairment in reality construction. Impairment in self-care. Medication changes. High risk for decompensation in less restrictive environment. Discharge Planning Placement Request HC Surrog/Guard Advoc?: Yes Problem Qualifiers (1) Psychosis: Qualified Codes: F28 - Other psychotic disorder not due to a substance or known physiological condition Reinaldo Guadalupe MD Aug 08, 2017 08:34
[2017-08-08] MEDS: BENZTROPINE MESYLATE 1 MG TAB PO PRN (11:45)
[2017-08-08 11:50] VITALS: BP 166/60; PULSE 80; RESP 20; TEMP 98
[2017-08-08] MEDS: ARIPiprazole 5 MG TAB PO SCH (13:00)
[2017-08-08 16:45] VITALS: BP 132/76; PULSE 105; RESP 18; TEMP 98.1; O2SAT 0
[2017-08-08] MEDS ORDERED: HALOPERIDOL LACTATE 5 MG/ML AMP IM ONE (19:00)
--- NOTE | 2017-08-08 19:19 | MB ---
cc: ANTONIO LUJAN M.D. DATE OF CONSULTATION 08/08/2017 REASON FOR CONSULTATION Possible dementia. HISTORY OF PRESENT ILLNESS Alex is a 57-year-old patient who is currently a patient of psychiatry service. He is transferred from [facility] after experiencing audio and visual hallucinations. Apparently these have been ongoing for quite some time since his 30s. He had some aggressive behavior as well as well as some paranoid ideation. According to the record his brother admitted that the patient was having hallucinations since his 30s but did not have a psychiatric care in the past. Apparently he states that he "flies off the handle" when he becomes belligerent and yells. He does have paranoid ideation thinking people are coming into the house, etc. He denies any headaches or focal weakness. MEDICATIONS Current medications are: 1. Abilify 5 mg daily. 2. Dulcolax. 3. Haldol 5 mg q.6h as needed for agitation. 4. Ativan p.r.n. 5. Cogentin as needed. 6. Benadryl. NEUROLOGIC EXAMINATION VITAL SIGNS: Blood pressure is 132/76, pulse is 105, respiratory rate is 18, temperature 98 degrees. Higher cortical functions, he is alert but disoriented to date and place. His speech is fluent but he makes a number of paraphasic errors in his speech. At times does not make sense in his speech. He can name some objects normally. He has some difficulty with comprehension I believe in that at times he has difficulty following simple commands. He recalls 0/3 objects in 3 minutes. His remote memory is difficult to fully assess as he is poorly cooperative with examination. There is no visual spatial neglect phenomenon. Cranial nerves are intact. Motor exam, he is diffusely tremulous in both upper and lower extremities. He has had increased tone as well. He appears to have some degree of ataxia on [id number] testing. Reflexes 2+ symmetric. IMAGING MRI of the brain is within normal limits. CT scan of the brain is normal as well. LABORATORY DATA White count 6400, hemoglobin 14.4, hematocrit 43%, platelet count is 299,000. Sodium is 140, potassium 3.6, chloride 106, CO2 is 30.5. The BUN is 15, creatinine 0.85, GFR is 92, glucose 135. Hemoglobin A1c is a 5.8%. AST 29, ALT 33. B12 579. TSH is 1.5. HIV antibody negative. RPR nonreactive. Urinalysis the pH is 5.5, specific gravity 1.023. IMPRESSION The patient has a number of cognitive symptoms which do suggest an underlying dementia. He has difficulty with his memory. I believe he has fairly prominent language disturbances as well which would suggest a cognitive dementia. An Alzheimer's type of dementia I think would be in the differential diagnosis versus chronic [employer] infection. RECOMMENDATIONS If the patient is able to cooperate a cerebral PET scan may be of benefit as well as an EEG. May consider lumbar puncture as well although he may have difficulty cooperating with an LP given his degree of agitation. For now we will order the PET scan and EEG and consider an LP if this does not yield an answer. We will check additional labs including sed rate as well as an JOSLYN. MD MAO Farah/JESSIKA /6:48 PM /7:00 PM
[2017-08-08] MEDS: diphenhydrAMINE HCL 50 MG CAP - HS PRN PO (20:22)
[2017-08-08] MEDS: LORazepam 1 MG TAB PO PRN (20:22)
[2017-08-08 21:43] LABS: APTT (PATIENT) 27.3 SEC (24.3-30.1); INTERNATIONAL NORMALIZED RATIO 1.2 RATIO; PROTHROMBIN TIME - PATIENT 13.2 SEC (9.8-11.6)
[2017-08-08] MEDS: HALOPERIDOL LACTATE 5 MG/ML AMP IM PRN (22:02)
[2017-08-09 06:12] VITALS: BP 127/79; PULSE 81; RESP 18; TEMP 97.8; O2SAT 95
[2017-08-09] MEDS: ARIPiprazole 5 MG TAB PO SCH (10:42)
--- NOTE | 2017-08-09 14:38 | PD.RAD ---
Post Procedure Progress Note Pre Procedure Diagnosis: (1) Psychosis (2) Rule-out neurocognitive disorder Post Procedure Diagnosis: (1) Psychosis (2) Rule-out neurocognitive disorder Procedure Date: Aug 09, 2017 Supervising Radiologist: Doug Fonseca Proceduralist/Assist: Sera Garcia, RT(R), RT Hattie(R)() Anesthesia: Local Plan of Activity Patient to Unit: Nursing Unit Patient Condition: Good See PACS Report for procedural detail/treatment Spinal Procedure Lumbar Puncture L2-L3 (Attempted this level but no CSF return), L3-L4 (Good return) Fluid Removal (CCs): 17 Fluid Description: Clear Puncture Time: 14:12 Doug Fonseca MD Aug 09, 2017 14:38
--- NOTE | 2017-08-09 15:07 | RADRPT ---
EXAM DATE/TIME: 08/09/2017 14:04 [facility] COMPARISON: No previous studies available for comparison. INDICATIONS : Patient with dementia symptoms in need of lumbar puncture to rule out neurocognitive disorder. MEDICAL HISTORY : Uncertain psychiatric disorder SURGICAL HISTORY : None ENCOUNTER: Initial ACUITY: > 1 year PAIN SCORE: Nonresponsive. LUMBAR PUNCTURE TIME: 1412 hours FLUORO TIME: 2.4 minutes IMAGE SERIES: 3 ACCESS LEVEL: L3-4 FLUID: 17 cc of clear CSF was collected and sent to the laboratory for analysis. PROCEDURE : 1. Fluoroscopic guided lumbar puncture. The risks, benefits and alternatives to the procedure were explained and verbal and written consent w as obtained. The site was prepped in sterile fashion. Full sterile technique was used, including ca p, mask, sterile gloves and gown and a large sterile sheet. Hand hygiene and 2% chlorhexidine and/or betadine/alcohol prep was utilized per protocol for cutaneous antisepsis. The skin and subcutaneous tissues were infiltrated with local anesthetic solution. With fluoroscopic guidance the lumbar thecal sac was punctured L2-L3. Despite confirming needle tip i n the region of the spinal canal, I was able to obtain any CSF at this level. Therefore, access was o btained one level below at L3-4. The fluid described above was removed without difficulty. The patient tolerated the procedure well and there were no complications. CONCLUSION: Uncomplicated fluoroscopically guided lumbar puncture. Doug Fonseca MD on August 09, 2017 at 15:05 Board Certified Radiologist. This report was verified electronically.
[2017-08-09] MEDS: HALOPERIDOL LACTATE 5 MG/ML AMP IM PRN (16:10)
--- NOTE | 2017-08-09 16:21 | HHI.PYPN ---
Subjective Remarks Patient seen and examined. Chart reviewed. Case d/w RN. Patient took an unwitnessed fall in the day area shortly before my arrival on the unit to my arrival. On my exam, patient seem a little more lucid than he has been in previous days. He says that he was trying to get over the tray on his ravin chair and fell. He cannot definitively say what he struck when he fell but does complain of head pain. However, he is also s/p LP today and may have some degree of post-LP headache. No other physical complaints of pain. He remains disoriented as before. No side effects from medications besides tremor, but this is not convincingly worse than baseline. Review of Systems ROS Limitations: Psychotic, Poor Historian Except as stated in HPI: all other systems reviewed are Neg Objective Alert: Yes [place]: Person Mood: Calm Affect: Flat Memory Intact: Comment (Not assessed) Hallucinations: Other (No AVH) Delusions: No Delusion Type: Other (No delusions) Suicidal: Ideation (No SI) Homicidal: Ideation (No HI) Insight/Judgment Poor Remarks Resting tremor noted. No dystonias, no dyskinesias. TP slightly more organized today versus yesterday. Grooming and hygiene poor. No overt signs of head trauma or other trauma noted. Labs Test 08/08/17 20:40 08/08/17 20:45 08/09/17 14:12 Erythrocyte Sedimentation Rate 12 mm/hr Prothrombin Time 13.2 SEC Prothromb Time International Ratio 1.2 RATIO Activated Partial Thromboplast Time 27.3 SEC CSF Glucose 74 MG/DL CSF Total Protein 43.7 MG/DL Date/Time Source Procedure Growth Status 08/09/17 14:12 Cerebral Spinal Fluid Lumbar Puncture Fungal Smear Pending Received 08/09/17 14:12 Cerebral Spinal Fluid Lumbar Puncture Fungal Culture Pending Received Labs reviewed. Vitals/IOs Vital Signs Date Time Temp Pulse Resp B/P (MAP) Pulse Ox O2 Delivery O2 Flow Rate FiO2 08/09/17 06:12 97.8 81 18 127/79 (95) 95 Assessment & Plan Problem List: (1) Psychosis ICD Codes: F29 - Unspecified psychosis not due to a substance or known physiological condition (2) Rule-out neurocognitive disorder Assessment & Plan Check stat Head CT. 1:1 for fall risk. I have instructed RN to initiate a Fall Alert. Continue Abilify as ordered. Neurology input noted and appreciated. Follow up labs and studies ordered by neurology. Continue to monitor on geropsychiatric unit. Continue other meds and care as ordered. Justification for Cont. Inpt. Impairment in self-care. High risk for decompensation in less restrictive environment. Discharge Planning Likely requires placement. Request HC Surrog/Guard Advoc?: Yes Problem Qualifiers (1) Psychosis: Qualified Codes: F28 - Other psychotic disorder not due to a substance or known physiological condition Reinaldo Guadalupe MD Aug 09, 2017 16:21
[2017-08-09 16:28] LABS: GROSS BLOOD TUBE #1 TRACE (0); GROSS BLOOD TUBE #2 TRACE (0); GROSS BLOOD TUBE #3 TRACE (0); SUPERNATE COLOR TUBE #1 CLEAR (CLEAR); SUPERNATE COLOR TUBE #2 CLEAR (CLEAR); SUPERNATE COLOR TUBE #3 CLEAR (CLEAR); SUPERNATE COLOR TUBE #4 CLEAR (CLEAR)
[2017-08-09 16:29] LABS: CSF LYMPHOCYTES 37 %; CSF MONOCYTES 20 %; CSF NEUTROPHILS 33 %; WBC TUBE #4 7 /MM3 (0-10)
[2017-08-09 16:35] VITALS: BP 130/75; PULSE 100; RESP 20
--- NOTE | 2017-08-09 17:40 | RADRPT ---
EXAM DATE/TIME: 08/09/2017 17:21 [facility] COMPARISON: CT BRAIN W/O CONTRAST, July 20, 2017, 10:30. INDICATIONS : Fall alert, possible trauma to head. RADIATION DOSE: 56.35 CTDIvol (mGy) MEDICAL HISTORY : None SURGICAL HISTORY : None. ENCOUNTER: Initial ACUITY: 1 day PAIN SCALE: Non-responsive LOCATION: Bilateral head TECHNIQUE: Multiple contiguous axial images were obtained of the head. Using automated exposure control and adj ustment of the mA and/or kV according to patient size, radiation dose was kept as low as reasonably a chievable to obtain optimal diagnostic quality images. DICOM format image data is available electro nically for review and comparison. FINDINGS: CEREBRUM: The ventricles are normal for age. No evidence of midline shift, mass lesion, hemorrhage or acute in farction. No extra-axial fluid collections are seen. POSTERIOR FOSSA: The cerebellum and brainstem are intact. The 4th ventricle is midline. The cerebellopontine angle i s unremarkable. EXTRACRANIAL: The visualized portion of the orbits is intact. SKULL: The calvaria is intact. No evidence of skull fracture. CONCLUSION: Normal examination for a patient of this age. No significant change has occurred. Ryan Yoder MD on August 09, 2017 at 17:36 Board Certified Radiologist. This report was verified electronically.
[2017-08-09 17:43] VITALS: BP 115/64; PULSE 94; RESP 16; TEMP 98.4; O2SAT 95
--- NOTE | 2017-08-09 18:10 | HHI.PR ---
Review/Management Diagnosis probable dementia. CSF studies so far normal suspect this is likely a degenerative dementia. cerebral PET scan is not available here. Consider this test as out patient at [facility] after discharge. Diagnosis/Plan: Subjective Subjective Comments Patient fell today and struck head and c/o headache Had LP earlier today Active Medications Current Medications Medications (Trade) Dose Ordered Sig/Ally Route Start Time Stop Time Status Last Admin (Ativan) 1 mg Q6H PRN PO 07/18/17 03:00 08/08/17 20:22 (Ativan Inj) 1 mg Q6H PRN IM 07/18/17 03:00 08/04/17 23:39 (Cogentin) 1 mg Q12H PRN PO 07/18/17 03:00 08/08/17 11:45 (Cogentin Inj) 1 mg Q12H PRN IM 07/18/17 03:00 08/08/17 22:01 (Benadryl) 50 mg HS PRN PO 07/18/17 03:00 08/08/17 20:22 (Benadryl Inj) 50 mg HS PRN IM 07/18/17 03:00 08/01/17 22:15 (Tylenol) 650 mg Q4H PRN PO 07/18/17 03:00 (Milk Of Magnesia Liq) 30 ml DAILY PRN PO 07/18/17 03:00 (Mag-Al Plus Susp Liq) 30 ml Q6H PRN PO 07/18/17 03:00 (Pill Splitter) 1 ea UNSCH PRN OTHER 07/24/17 13:00 (Dulcolax Ec) 10 mg DAILY PRN PO 08/03/17 13:45 (Abilify) 5 mg DAILY PO 08/08/17 09:00 08/09/17 10:42 (Haldol) 2 mg Q6H PRN PO 08/09/17 17:45 (Haldol Inj) 2 mg Q6H PRN IM 08/09/17 21:15 08/09/17 16:10 Allergies Allergies Coded Allergies No Known Allergies (Verified Allergy, Severe, 07/16/17) Exam I&O / VS Vital Signs Date Time Temp Pulse Resp B/P (MAP) Pulse Ox O2 Delivery O2 Flow Rate FiO2 08/09/17 17:43 98.4 94 16 115/64 (81) 95 08/09/17 16:35 100 20 130/75 (93) 08/09/17 06:12 97.8 81 18 127/79 (95) 95 Exam Comments No change Objective Radiology Results CT brain today after fall normal Micro and Labs Laboratory Tests Test 08/08/17 20:40 08/08/17 20:45 08/09/17 14:12 Erythrocyte Sedimentation Rate 12 Prothrombin Time 13.2 Prothromb Time International Ratio 1.2 Activated Partial Thromboplast Time 27.3 CSF Volume (Tube 1) 3.0 CSF Supernatant Color (tube 1) CLEAR CSF Gross Blood (Tube 1) TRACE CSF Volume (Tube 2) 3.0 CSF Supernatant Color (tube 2) CLEAR CSF Gross Blood (Tube 2) TRACE CSF Volume (Tube 3) 4.0 CSF Supernatant Color (tube 3) CLEAR CSF Gross Blood (Tube 3) TRACE CSF Volume (Tube 4) 7.0 CSF Supernatant Color (tube 4) CLEAR CSF WBC (Tube 4) 7 CSF RBC (Tube 4) 436 CSF Neutrophils 33 CSF Lymphocytes 37 CSF Monocytes 20 CSF Histiocytes 10 CSF Glucose 74 CSF Total Protein 43.7 Date/Time Source Procedure Growth Status 08/09/17 14:12 Cerebral Spinal Fluid Lumbar Puncture Fungal Smear Pending Received 08/09/17 14:12 Cerebral Spinal Fluid Lumbar Puncture Fungal Culture Pending Received Byron Camacho PhD Aug 09, 2017 18:10
[2017-08-09 18:30] VITALS: BP 127/76; PULSE 85
--- NOTE | 2017-08-09 18:33 | MG ---
cc: DHIRAJ NAGY MD Lab No: Date: 08/09/17 Age: Sex: M Race: An EEG was obtained on this 57-year-old patient with history of encephalopathy, lethargy MEDICATIONS Abilify Haldol Ativan This EEG shows low amplitude beta rhythms diffusely. There is artifact maximum in the central and frontal head regions. There are some intermixed theta rhythms as well as some mild delta activity. The patient seems to be often mostly asleep. There is no consistent asymmetry. When the patient awakens there is artifact and some beta activity. Photic stimulation showed no change and the patient was mostly asleep during photic. INTERPRETATION This EEG shows some prominent asleep recording without any asymmetry. The brief awakening shows lack of alpha rhythms. The findings suggest a mild diffuse disturbance of cerebral function. No epileptiform features present. Dhiraj Nagy MD [facility] /6:15 PM /6:26 PM
[2017-08-09] MEDS: ACETAMINOPHEN 325 MG TAB PO PRN (21:17)
[2017-08-09] MEDS: diphenhydrAMINE HCL 50 MG CAP - HS PRN PO (21:17)
[2017-08-09] MEDS: BENZTROPINE MESYLATE 1 MG TAB PO PRN (21:17)
[2017-08-09 23:30] VITALS: BP 132/86; PULSE 88
[2017-08-10] MEDS: LORazepam 1 MG TAB PO PRN ×2 (02:28→14:49)
[2017-08-10 06:21] VITALS: BP 130/64; PULSE 68; RESP 16; TEMP 98.3
--- NOTE | 2017-08-10 11:03 | HHI.PYPN ---
Subjective Remarks Patient seen and examined. Chart reviewed. Case discussed with nursing staff. Nursing staff notes ongoing functional decline. He is incontinent of urine now and requires assistance with feeding. Some ongoing restlessness/agitation requiring Ativan PRN per nursing staff. On my examination today, the patient is able to answer some simple yes/no questions but remains overall quite confused. No AVH. No side effects from medications besides possibly tremor, which is present in his unmedicated state as well. Complains of some neck pain. No other physical complaints. Review of Systems ROS Limitations: Poor Historian Except as stated in HPI: all other systems reviewed are Neg Objective Alert: Yes [place]: Person Mood: Other (Mildly restless) Affect: Flat Memory Intact: Comment (Not assessed) Hallucinations: Other (No AVH) Delusions: No Delusion Type: Other (None) Suicidal: Ideation (No SI) Homicidal: Ideation (No HI) Insight/Judgment Poor Remarks Resting hand tremor noted, not convincingly worse since starting Abilify. Perhaps some mild cog-wheeling. No other motoric abnormalities noted. Thought process quite disorganized overall. Speech fairly rambling but perhaps a little more coherent today. Labs Test 08/09/17 14:12 CSF Volume (Tube 1) 3.0 ML CSF Supernatant Color (tube 1) CLEAR CSF Gross Blood (Tube 1) TRACE CSF Volume (Tube 2) 3.0 ML CSF Supernatant Color (tube 2) CLEAR CSF Gross Blood (Tube 2) TRACE CSF Volume (Tube 3) 4.0 ML CSF Supernatant Color (tube 3) CLEAR CSF Gross Blood (Tube 3) TRACE CSF Volume (Tube 4) 7.0 ML CSF Supernatant Color (tube 4) CLEAR CSF WBC (Tube 4) 7 /MM3 CSF RBC (Tube 4) 436 /MM3 CSF Neutrophils 33 % CSF Lymphocytes 37 % CSF Monocytes 20 % CSF Histiocytes 10 % CSF Glucose 74 MG/DL CSF Total Protein 43.7 MG/DL Date/Time Source Procedure Growth Status 08/09/17 14:12 Cerebral Spinal Fluid Lumbar Puncture Fungal Smear Pending Received 08/09/17 14:12 Cerebral Spinal Fluid Lumbar Puncture Fungal Culture Pending Received Labs reviewed. EEG results reviewed. Vitals/IOs Vital Signs Date Time Temp Pulse Resp B/P (MAP) Pulse Ox O2 Delivery O2 Flow Rate FiO2 08/10/17 06:21 98.3 68 16 130/64 (86) 08/09/17 17:43 95 Intake and Output 08/10/17 08/10/17 08/11/17 08:00 16:00 00:00 Intake Total 480 ml Balance 480 ml Assessment & Plan Problem List: (1) Primary degenerative dementia of the Alzheimer type, presenile onset ICD Codes: G30.0 - Alzheimer's disease with early onset; F02.80 - Dementia in other diseases classified elsewhere without behavioral disturbance Assessment & Plan Clinical picture looking more like a swiftly progressing dementia of early onset , perhaps with a premorbid history of psychotic illness. Continue Abilify as ordered. To consider Aricept/Namenda. Appreciate ongoing neurology input. Continue other medications and care as ordered. Justification for Cont. Inpt. High risk for decompensation in less restrictive environment. Discharge Planning Placement. Request HC Surrog/Guard Advoc?: Yes Problem Qualifiers (1) Primary degenerative dementia of the Alzheimer type, presenile onset: Qualified Codes: G30.0 - Alzheimer's disease with early onset; F02.81 - Dementia in other diseases classified elsewhere with behavioral disturbance Reinaldo Guadalupe MD Aug 10, 2017 11:03
[2017-08-10] MEDS: ARIPiprazole 5 MG TAB PO SCH (11:29)
--- NOTE | 2017-08-10 17:47 | RADRPT ---
EXAM DATE/TIME: 08/10/2017 17:03 [facility] COMPARISON: No previous studies available for comparison. INDICATIONS : Neck pain with no known trauma MEDICAL HISTORY : None. SURGICAL HISTORY : None. ENCOUNTER: Initial ACUITY: 1 day PAIN SCORE: 5/10 LOCATION: Cervical spine FINDINGS: Two projection examination was performed. Straightening of the normal lordotic curvature with degener ative disc disease most prominent from C4-5 through C6-7 with loss of disc height. Vertebral body hei ghts are maintained without fracture or listhesis. Prevertebral soft tissues are within normal limits . The dens is intact and the lateral masses are symmetric CONCLUSION: 1. Straightening of the normal lordotic curvature with multilevel degenerative disc disease from C4-5 through C6-7. 2. No fracture Doug Fonseca MD on August 10, 2017 at 17:44 Board Certified Radiologist. This report was verified electronically.
[2017-08-11] MEDS: diphenhydrAMINE HCL 50 MG/ML VIAL - HS PRN IM (01:55)
[2017-08-11] MEDS: LORazepam 2 MG/ML VIAL IM PRN (01:55)
[2017-08-11 06:11] VITALS: BP 136/71; PULSE 79; RESP 18; TEMP 97.8; O2SAT 95
[2017-08-11] MEDS: ARIPiprazole 5 MG TAB PO SCH (09:53)
[2017-08-11] MEDS: LORazepam 1 MG TAB PO PRN ×2 (09:53→20:32)
[2017-08-11] MEDS: HALOPERIDOL 2 MG TAB PO PRN (14:10)
[2017-08-11 14:19] LABS: IGG CSF 2.6 mg/dL (<=8.1); IGG INDEX CSF 0.41 (<=0.85); IGG/ALBUMIN CSF 0.11 (<=0.21); IGG/ALBUMIN SERUM 0.27 (<=0.40)
--- NOTE | 2017-08-11 16:18 | HHI.PYPN ---
Subjective Remarks Pt seen and discussed with staff. No behavioral problems on unit. Compliant with medications. He has been napping off and on most of the day. Objective Alert: Yes [place]: Person Mood: Calm Affect: Flat Memory Intact: Comment (poor) Hallucinations: Other (No AVH) Delusions: No Delusion Type: Other (None) Suicidal: Ideation (No SI) Homicidal: Ideation (No HI) Insight/Judgment poor Labs Date/Time Source Procedure Growth Status 08/09/17 14:12 Cerebral Spinal Fluid Lumbar Puncture Fungal Smear - Final NO FUNGAL ELEMENTS SEEN. Resulted 08/09/17 14:12 Cerebral Spinal Fluid Lumbar Puncture Fungal Culture Pending Resulted Vitals/IOs Vital Signs Date Time Temp Pulse Resp B/P (MAP) Pulse Ox O2 Delivery O2 Flow Rate FiO2 08/11/17 06:11 97.8 79 18 136/71 (92) 95 Intake and Output 08/11/17 08/11/17 08/12/17 08:00 16:00 00:00 Intake Total 240 ml 120 ml Balance 240 ml 120 ml Assessment & Plan Problem List: (1) Primary degenerative dementia of the Alzheimer type, presenile onset ICD Codes: G30.0 - Alzheimer's disease with early onset; F02.80 - Dementia in other diseases classified elsewhere without behavioral disturbance Assessment & Plan Continue current tx planEstimated LOS: days Justification for Cont. Inpt. risk of decompensation at lower level of care Request HC Surrog/Guard Advoc?: Yes Problem Qualifiers (1) Primary degenerative dementia of the Alzheimer type, presenile onset: Qualified Codes: G30.0 - Alzheimer's disease with early onset; F02.81 - Dementia in other diseases classified elsewhere with behavioral disturbance Valerie Cortes MD Aug 11, 2017 16:18
[2017-08-11 18:00] VITALS: BP 140/75; PULSE 92; RESP 17; TEMP 98.1; O2SAT 96
[2017-08-11] MEDS: diphenhydrAMINE HCL 50 MG CAP - HS PRN PO (20:32)
[2017-08-12] MEDS: HALOPERIDOL LACTATE 5 MG/ML AMP IM PRN (02:30)
[2017-08-12] MEDS: diphenhydrAMINE HCL 50 MG/ML VIAL - HS PRN IM (02:31)
[2017-08-12] MEDS: LORazepam 2 MG/ML VIAL IM PRN (02:31)
--- NOTE | 2017-08-12 10:18 | HHI.PYPN ---
Subjective Remarks Pt seen and discussed with staff. He was agitated last night and required haldol 2mg IM and lorazepam 1mg IM x1 to maintain safety. Today he has been resting off on and for most of the morning. No behavioral problems. No SI/HI. Objective Alert: Yes [place]: Person Mood: Calm Affect: Flat Memory Intact: Comment (poor) Hallucinations: Other (No AVH) Delusions: No Delusion Type: Other (None) Suicidal: Ideation (No SI) Homicidal: Ideation (No HI) Insight/Judgment poor Labs Date/Time Source Procedure Growth Status 08/09/17 14:12 Cerebral Spinal Fluid Lumbar Puncture Fungal Smear - Final NO FUNGAL ELEMENTS SEEN. Resulted 08/09/17 14:12 Cerebral Spinal Fluid Lumbar Puncture Fungal Culture Pending Resulted Vitals/IOs Vital Signs Date Time Temp Pulse Resp B/P (MAP) Pulse Ox O2 Delivery O2 Flow Rate FiO2 08/11/17 18:00 98.1 92 17 140/75 (96) 96 Intake and Output 08/12/17 08/12/17 08/13/17 08:00 16:00 00:00 Intake Total 0 ml Balance 0 ml Assessment & Plan Problem List: (1) Primary degenerative dementia of the Alzheimer type, presenile onset ICD Codes: G30.0 - Alzheimer's disease with early onset; F02.80 - Dementia in other diseases classified elsewhere without behavioral disturbance Assessment & Plan Continue current tx plan. Estimated LOS: days Justification for Cont. Inpt. risk of decompensation Request HC Surrog/Guard Advoc?: Yes Problem Qualifiers (1) Primary degenerative dementia of the Alzheimer type, presenile onset: Qualified Codes: G30.0 - Alzheimer's disease with early onset; F02.81 - Dementia in other diseases classified elsewhere with behavioral disturbance Valerie Cortes MD Aug 12, 2017 10:18
[2017-08-12] MEDS: ARIPiprazole 5 MG TAB PO SCH (12:08)
[2017-08-12] MEDS: HALOPERIDOL 2 MG TAB PO PRN (13:42)
[2017-08-12 15:09] LABS: CSF CRYPTOCOCCUS AG CONF ND (NOT DETECTD)
[2017-08-12] MEDS: LORazepam 1 MG TAB PO PRN (15:38)
[2017-08-13 06:40] VITALS: BP 125/69; PULSE 63; RESP 17; TEMP 98.7; O2SAT 98
--- NOTE | 2017-08-13 07:03 | HHI.PYPN ---
Subjective Remarks Patient seen and examined. Chart reviewed. I note that the patient required Haldol PRN both PO and IM yesterday. Case discussed with nursing staff who notes patient slept poorly overnight. Functional status continues to decline. Nutritional intake reviewed, and I note that the patient's PO intake is worsening. On my exam, patient presents as tremulous and disorganized. He gives the year as 1998 but cannot answer any other location/date questions. He appears quite disheveled. No reported physical complaints. Review of Systems ROS Limitations: Poor Historian Other Limited ROS because of cognitive impairment Objective Alert: Yes [place]: Person Mood: Other (somewhat restless) Affect: Flat Memory Intact: Comment (impaired) Hallucinations: Other (unable to assess) Delusions: No Delusion Type: Other (unable to assess) Suicidal: Ideation (no SI voiced) Homicidal: Ideation (no HI voiced) Insight/Judgment Poor Remarks Hand tremor noted, and this is perhaps mildly worse than baseline tremor. Possibly some cogwheeling. No other motoric abnormalities noted. Speech largely nonsensical and rambling. Grooming and hygiene poor. Thought process reveals paucity of thought and disorganization. Labs Date/Time Source Procedure Growth Status 08/09/17 14:12 Cerebral Spinal Fluid Lumbar Puncture Fungal Smear - Final NO FUNGAL ELEMENTS SEEN. Resulted 08/09/17 14:12 Cerebral Spinal Fluid Lumbar Puncture Fungal Culture Pending Resulted Labs reviewed. Neurology labs reviewed. Several of these laboratories are still pending, but there is no clear etiological factor that I can see for the patient's mental status on the ones that have resulted. Vitals/IOs Vital Signs Date Time Temp Pulse Resp B/P (MAP) Pulse Ox O2 Delivery O2 Flow Rate FiO2 08/13/17 06:40 98.7 63 17 125/69 (87) 98 Intake and Output 08/13/17 08/13/17 08/14/17 08:00 16:00 00:00 Intake Total 0 ml Balance 0 ml Assessment & Plan Problem List: (1) Primary degenerative dementia of the Alzheimer type, presenile onset ICD Codes: G30.0 - Alzheimer's disease with early onset; F02.80 - Dementia in other diseases classified elsewhere without behavioral disturbance Assessment & Plan Titrate Abilify to 7.5 mg daily to target behaviors in the setting of patient's dementing illness. I will also add small dose of Cogentin to try to manage patient's EPS, although we will need to be cautious that this does not further worsen patient's mental status. I will add melatonin for sleep. Consult the dietitian because of patient's poor oral intake. I will also initiate weights 3 times a week. Continue to monitor on the inpatient unit. Continue other medications and care as ordered. Justification for Cont. Inpt. High risk for decompensation in less restrictive environment. Med changes. Discharge Planning Placement Request HC Surrog/Guard Advoc?: Yes Problem Qualifiers (1) Primary degenerative dementia of the Alzheimer type, presenile onset: Qualified Codes: G30.0 - Alzheimer's disease with early onset; F02.81 - Dementia in other diseases classified elsewhere with behavioral disturbance Reinaldo Guadalupe MD Aug 13, 2017 07:03
[2017-08-13] MEDS: ARIPiprazole 5 MG TAB PO SCH (08:32)
[2017-08-13] MEDS: BENZTROPINE MESYLATE 1 MG TAB PO SCH ×2 (08:32→21:45)
[2017-08-13 17:08] VITALS: BP 118/74; PULSE 89; RESP 17; TEMP 98.7; O2SAT 99
[2017-08-13] MEDS: MELATONIN 5 MG TAB PO SCH (21:00)
[2017-08-14 06:00] VITALS: BP 126/79; PULSE 88; RESP 17; TEMP 98; O2SAT 98
--- NOTE | 2017-08-14 08:26 | HHI.PYPN ---
Subjective Remarks patient seen and examined. Chart reviewed. Case discussed in treatment team. Per nursing staff, ongoing functional decline and sleep somewhat disrupted but otherwise no issues. For me today, patient presents as profoundly confused and disorganized. Minimal spontaneous speech, largely nonsense. The only intelligible material I get from the patient is when I ask how he is doing generally, and the patient replies, "He just asked." Review of Systems ROS Limitations: Poor Historian Other Limited ROS because of cognitive impairment. Objective Alert: Yes [place]: Person Mood: Other (remains a little restless) Affect: Flat (remains quite flat) Memory Intact: Comment (impaired on clinical exam) Hallucinations: Other (unable to assess) Delusions: No Delusion Type: Other (unable to assess) Suicidal: Ideation (no SI voiced) Homicidal: Ideation (no HI voiced) Insight/Judgment Poor Remarks Hand tremor significantly reduced. Cogwheeling lessened. Paucity of thought ongoing. Labs Date/Time Source Procedure Growth Status 08/09/17 14:12 Cerebral Spinal Fluid Lumbar Puncture Fungal Smear - Final NO FUNGAL ELEMENTS SEEN. Resulted 08/09/17 14:12 Cerebral Spinal Fluid Lumbar Puncture Fungal Culture Pending Resulted Labs reviewed. Outstanding are CSF VDRL, cryptococcus, and Lyme as well as 14-3 -3. Checked with lab, 14-3-3 might be back by weekend. Vitals/IOs Vital Signs Date Time Temp Pulse Resp B/P (MAP) Pulse Ox O2 Delivery O2 Flow Rate FiO2 08/14/17 06:00 98.0 88 17 126/79 (95) 98 Assessment & Plan Problem List: (1) Primary degenerative dementia of the Alzheimer type, presenile onset ICD Codes: G30.0 - Alzheimer's disease with early onset; F02.80 - Dementia in other diseases classified elsewhere without behavioral disturbance Assessment & Plan Continue Abilify as ordered. Continue melatonin for sleep. Continue to monitor on the inpatient unit. Follow-up laboratories. Continue other medications and care as ordered. Justification for Cont. Inpt. Impairment in self-care. High risk for decompensation in less restrictive environment. Discharge Planning Patient will require placement. Unfortunately, the counselor tells me that the patient presently has no payer source or benefits that cover placement, and so he will need to remain on the inpatient unit until these can be arranged. Request HC Surrog/Guard Advoc?: Yes Problem Qualifiers (1) Primary degenerative dementia of the Alzheimer type, presenile onset: Qualified Codes: G30.0 - Alzheimer's disease with early onset; F02.81 - Dementia in other diseases classified elsewhere with behavioral disturbance Reinaldo Guadalupe MD Aug 14, 2017 08:26
[2017-08-14] MEDS: BENZTROPINE MESYLATE 1 MG TAB PO SCH ×2 (08:43→20:54)
[2017-08-14] MEDS: ARIPiprazole 5 MG TAB PO SCH (08:43)
--- NOTE | 2017-08-14 13:34 | PD.TTN ---
Patient Problems 1. Discharge planning 2. Medication compliance 3. Knowledge deficit 4. Lack of coping skills Progress Toward Goals Provider Present: Dr. González Guadalupe Provider Input: Dr. Guadalupe treatment team met to discuss treatment plan, discharge and medication. Patient has poor insight into his situaton. Medication will be added for mood stablization. Patient will either return home or an JOANN once discharged 08/14 did additional testing / lumbar puncture Nurse(s) Input: Patient's nurse Danette Soto reports patient has poor concentration, concerned with mother's wellbeing, brighter affect, tremerous, nervous 08/07 Bryn ; was lathargic yesterday mroe alert today 08/14 increased the Abilify did not sleep well last night got shower and brother came and s/w nurse yesterday and was updated on pt he would like him in [place] closer to home in a LTC facility Psychiatric Counselors Present: Dayna Woods LCSW, Cherelle Ramos, [facility] Psych Therapist Input: Patient presented anxious, nervous. affect blunted. Patient's speech was clear, organized with pressured. Patient made good eye contact.. Patient is exit seeking, focused on discharge. Patient is medication compliant. Patient is alert to person, place but has poor insight into his situation. 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
[2017-08-14 18:08] VITALS: BP 123/74; PULSE 90; RESP 18; TEMP 97.9; O2SAT 96
[2017-08-14] MEDS: MELATONIN 5 MG TAB PO SCH (20:51)
[2017-08-14 23:51] LABS: B. BURGDORFERI DNA PCR CSF NOT DETECTED (NOT DETECTE)
[2017-08-15 05:42] VITALS: BP 121/66; PULSE 72; RESP 16; TEMP 98
--- NOTE | 2017-08-15 08:07 | HHI.PYPN ---
Subjective Remarks Patient seen and examined. Chart reviewed. Patient hasn't required any Haldol or Ativan PRN since 08/12. Patient slept 6 hours overnight per charting. Case discussed with nurse in counselor. On my examination today, patient presents as hypoverbal, flat, apathetic. No real spontaneous speech. When prompted says "Yes, I was. I just looking at" before trailing off. This verbalization was not an answer to the question asked. No evident physical distress or side effects from medications. Review of Systems ROS Limitations: Poor Historian Other Limited ROS because of cognitive impairment Objective Alert: Yes [place]: Person Mood: Calm Affect: Flat Memory Intact: Comment (impaired) Hallucinations: Other (unable to assess) Delusions: No Delusion Type: Other (unable to assess) Suicidal: Ideation (unable to assess) Homicidal: Ideation (unable to assess) Insight/Judgment Absent Remarks Hand tremor significantly reduced. Minimal cogwheeling. No other motor abnormalities noted. Paucity of thought. Labs Date/Time Source Procedure Growth Status 08/09/17 14:12 Cerebral Spinal Fluid Lumbar Puncture Fungal Smear - Final NO FUNGAL ELEMENTS SEEN. Resulted 08/09/17 14:12 Cerebral Spinal Fluid Lumbar Puncture Fungal Culture Pending Resulted Labs reviewed. CSF Lyme, VDRL and cryptococcus negative. 14-3-3 not elevated. Vitals/IOs Vital Signs Date Time Temp Pulse Resp B/P (MAP) Pulse Ox O2 Delivery O2 Flow Rate FiO2 08/15/17 05:42 98.0 72 16 121/66 (84) 08/14/17 18:08 96 Intake and Output 08/15/17 08/15/17 08/16/17 08:00 16:00 00:00 Intake Total 0 ml Balance 0 ml Assessment & Plan Problem List: (1) Primary degenerative dementia of the Alzheimer type, presenile onset ICD Codes: G30.0 - Alzheimer's disease with early onset; F02.80 - Dementia in other diseases classified elsewhere without behavioral disturbance Assessment & Plan Continue current psychotropics as ordered. Continue to monitor on the geropsychiatric unit. Continue other medications and care as ordered. Justification for Cont. Inpt. Risk for decompensation in less restrictive environment. Impairment in self- care. Discharge Planning Needs placement but patient is presently without payer source to support this. Counselor working on this. Request HC Surrog/Guard Advoc?: Yes Problem Qualifiers (1) Primary degenerative dementia of the Alzheimer type, presenile onset: Qualified Codes: G30.0 - Alzheimer's disease with early onset; F02.81 - Dementia in other diseases classified elsewhere with behavioral disturbance Reinaldo Guadalupe MD Aug 15, 2017 08:07
[2017-08-15] MEDS: BENZTROPINE MESYLATE 1 MG TAB PO SCH ×2 (09:00→20:54)
[2017-08-15] MEDS: ARIPiprazole 5 MG TAB PO SCH (09:00)
[2017-08-15 11:51] LABS: VDRL CSF NON-REACTIVE (NON-REACTVE)
[2017-08-15 18:27] VITALS: BP 130/73; PULSE 83; RESP 16; TEMP 98.3; O2SAT 96
[2017-08-15] MEDS: MELATONIN 5 MG TAB PO SCH (20:54)
[2017-08-16 05:48] VITALS: BP 119/71; PULSE 71; RESP 18; TEMP 98.3
--- NOTE | 2017-08-16 08:20 | HHI.PYPN ---
Subjective Remarks Patient seen and examined. Chart reviewed. Case discussed with nursing staff. Patient slept 4 hours overnight and requires total care per nursing staff. On my examination today, the patient is somewhat more animated and interactive than in previous visits. He asks me, "how you doin?" When I ask him how he is doing in return, he smiles and tents his hands and bends forward in his chair as if bowing. When I try to get him to follow simple commands, he says, "nope. " No side effects from medications. No physical complaints. Review of Systems ROS Limitations: Poor Historian Other Limited ROS because of mental status Objective Alert: Yes [place]: Person Mood: Calm Affect: Other (more reactive today) Memory Intact: Comment (remains impaired) Hallucinations: Other (no AVH reported) Delusions: No Delusion Type: Other (no delusions) Suicidal: Ideation (no SI voiced) Homicidal: Ideation (no HI voiced) Insight/Judgment Poor Remarks no new motor abnormalities noted. Labs Date/Time Source Procedure Growth Status 08/09/17 14:12 Cerebral Spinal Fluid Lumbar Puncture Fungal Smear - Final NO FUNGAL ELEMENTS SEEN. Resulted 08/09/17 14:12 Cerebral Spinal Fluid Lumbar Puncture Fungal Culture Pending Resulted Labs reviewed. Vitals/IOs Vital Signs Date Time Temp Pulse Resp B/P (MAP) Pulse Ox O2 Delivery O2 Flow Rate FiO2 08/16/17 05:48 98.3 71 18 119/71 (87) 08/15/17 18:27 96 Intake and Output 08/16/17 08/16/17 08/17/17 08:00 16:00 00:00 Intake Total 120 ml Balance 120 ml Assessment & Plan Problem List: (1) Primary degenerative dementia of the Alzheimer type, presenile onset ICD Codes: G30.0 - Alzheimer's disease with early onset; F02.80 - Dementia in other diseases classified elsewhere without behavioral disturbance Assessment & Plan Continue current psychotropics as ordered. Continue to monitor on the inpatient unit. Continue other medications and care as ordered. Justification for Cont. Inpt. Risk for decompensation in less restrictive environment. Discharge Planning Placement. Case discussed with counselor. Request HC Surrog/Guard Advoc?: Yes Problem Qualifiers (1) Primary degenerative dementia of the Alzheimer type, presenile onset: Qualified Codes: G30.0 - Alzheimer's disease with early onset; F02.81 - Dementia in other diseases classified elsewhere with behavioral disturbance Reinaldo Guadalupe MD Aug 16, 2017 08:20
[2017-08-16] MEDS: ARIPiprazole 5 MG TAB PO SCH (10:07)
[2017-08-16] MEDS: BENZTROPINE MESYLATE 1 MG TAB PO SCH ×2 (10:08→20:24)
[2017-08-16] MEDS: LORazepam 2 MG/ML VIAL IM PRN (14:14)
[2017-08-16 18:04] VITALS: BP 120/75; PULSE 75; RESP 17; TEMP 98.4; O2SAT 98
[2017-08-16] MEDS: LORazepam 1 MG TAB PO PRN (20:23)
[2017-08-16] MEDS: diphenhydrAMINE HCL 50 MG CAP - HS PRN PO (20:23)
[2017-08-16] MEDS: MELATONIN 5 MG TAB PO SCH (20:24)
[2017-08-16] MEDS: ACETAMINOPHEN 325 MG TAB PO PRN (20:24)
[2017-08-17 06:00] VITALS: BP 137/74; PULSE 87; RESP 16; TEMP 97.9; O2SAT 94
[2017-08-17] MEDS: BENZTROPINE MESYLATE 1 MG TAB PO SCH ×2 (10:35→20:22)
[2017-08-17] MEDS: ARIPiprazole 5 MG TAB PO SCH (10:37)
--- NOTE | 2017-08-17 11:53 | HHI.PYPN ---
Subjective Remarks Patient seen and examined. Chart reviewed. Case discussed with nursing staff. No behavioral issues noted and patient is reported to be med compliant. On my examination today, the patient is awake and alert and seems to be in good spirits. He remains quite confused but is social. He says to me, "Good morning , Mr. Stallings! I'm not a bouncer, though." He is largely irrelevant answers to questions. He is able to give his correct date of . No physical complaints. Case discussed with counselor. She reports that she has had some difficulties in getting brother Jorge Luis, who is HCS, to work in a productive manner with counselor on patient's case and on disposition planning. I tried to reach out to Jorge Luis Johnson at numbers in counselor's notes: and . I got no answer at either number and was not given the opportunity to leave a VM. Review of Systems ROS Limitations: Poor Historian Except as stated in HPI: all other systems reviewed are Neg Objective Alert: Yes [place]: Person Mood: Calm Affect: Euthymic Memory Intact: Comment (impaired) Hallucinations: Other (no AVH reported) Delusions: No Delusion Type: Other (No delusions) Suicidal: Ideation (No SI) Homicidal: Ideation (No HI) Insight/Judgment Poor Remarks Hand tremor remains considerably reduced. No cogwheeling. No other motor abnormalities noted. Labs Date/Time Source Procedure Growth Status 08/09/17 14:12 Cerebral Spinal Fluid Lumbar Puncture Fungal Smear - Final NO FUNGAL ELEMENTS SEEN. Resulted 08/09/17 14:12 Cerebral Spinal Fluid Lumbar Puncture Fungal Culture - Preliminary NO GROWTH IN 1 WEEK Resulted Labs reviewed. Vitals/IOs Vital Signs Date Time Temp Pulse Resp B/P (MAP) Pulse Ox O2 Delivery O2 Flow Rate FiO2 08/17/17 06:00 97.9 87 16 137/74 (95) 94 Intake and Output 08/17/17 08/17/17 08/18/17 08:00 16:00 00:00 Intake Total 1200 ml Balance 1200 ml Assessment & Plan Problem List: (1) Primary degenerative dementia of the Alzheimer type, presenile onset ICD Codes: G30.0 - Alzheimer's disease with early onset; F02.80 - Dementia in other diseases classified elsewhere without behavioral disturbance Assessment & Plan Continue Abilify as ordered. Continue to monitor on the inpatient unit. Continue other medications and care as ordered. Justification for Cont. Inpt. High risk for decompensation in less restrictive environment. Discharge Planning Placement. Request HC Surrog/Guard Advoc?: Yes Problem Qualifiers (1) Primary degenerative dementia of the Alzheimer type, presenile onset: Qualified Codes: G30.0 - Alzheimer's disease with early onset; F02.81 - Dementia in other diseases classified elsewhere with behavioral disturbance Reinaldo Guadalupe MD Aug 17, 2017 11:53
[2017-08-17] MEDS: LORazepam 1 MG TAB PO PRN ×2 (20:11→20:21)
[2017-08-17] MEDS: diphenhydrAMINE HCL 50 MG CAP - HS PRN PO (20:21)
[2017-08-17] MEDS: MELATONIN 5 MG TAB PO SCH (20:21)
[2017-08-18 05:54] VITALS: BP 152/76; PULSE 97; RESP 19; TEMP 97.2; O2SAT 94
[2017-08-18] MEDS: ARIPiprazole 5 MG TAB PO SCH (09:49)
[2017-08-18] MEDS: BENZTROPINE MESYLATE 1 MG TAB PO SCH ×2 (09:49→20:10)
--- NOTE | 2017-08-18 14:08 | HHI.PYPN ---
Subjective Remarks Patient was seen and case discussed with nursing. Patient is not cooperative with interview. He is looking down, responding to internal stimuli. Compliant with medications. No behavioral outbursts Objective Alert: Yes [place]: Person Mood: Oppositional Affect: Restricted Memory Intact: Comment (impaired) Hallucinations: Other (no AVH reported) Delusions: No Delusion Type: Other (No delusions) Suicidal: Ideation (No SI) Homicidal: Ideation (No HI) Insight/Judgment Poor Labs Date/Time Source Procedure Growth Status 08/09/17 14:12 Cerebral Spinal Fluid Lumbar Puncture Fungal Smear - Final NO FUNGAL ELEMENTS SEEN. Resulted 08/09/17 14:12 Cerebral Spinal Fluid Lumbar Puncture Fungal Culture - Preliminary NO GROWTH IN 1 WEEK Resulted Vitals/IOs Vital Signs Date Time Temp Pulse Resp B/P (MAP) Pulse Ox O2 Delivery O2 Flow Rate FiO2 08/18/17 05:54 97.2 97 19 152/76 (101) 94 Assessment & Plan Problem List: (1) Primary degenerative dementia of the Alzheimer type, presenile onset ICD Codes: G30.0 - Alzheimer's disease with early onset; F02.80 - Dementia in other diseases classified elsewhere without behavioral disturbance Assessment & Plan Continue current treatment plan Justification for Cont. Inpt. Patient will decompensate in a less restrictive setting Request HC Surrog/Guard Advoc?: Yes Problem Qualifiers (1) Primary degenerative dementia of the Alzheimer type, presenile onset: Qualified Codes: G30.0 - Alzheimer's disease with early onset; F02.81 - Dementia in other diseases classified elsewhere with behavioral disturbance Arpan Castaneda DO Aug 18, 2017 14:08
[2017-08-18] MEDS: MELATONIN 5 MG TAB PO SCH (20:10)
[2017-08-19 05:14] VITALS: BP 133/77; PULSE 74; RESP 18; TEMP 97.1
[2017-08-19] MEDS: BENZTROPINE MESYLATE 1 MG TAB PO SCH ×2 (10:02→20:24)
[2017-08-19] MEDS: ARIPiprazole 5 MG TAB PO SCH (10:07)
--- NOTE | 2017-08-19 12:56 | HHI.PYPN ---
Subjective Remarks Patient was seen and case discussed with nursing. Patient is pleasant and cooperative with exam. Is more interactive compared to yesterday. He is responding to internal stimuli and is not answering questions appropriately. Loose associations Objective Alert: Yes [place]: Person Mood: Oppositional Affect: Labile Memory Intact: Comment (impaired) Hallucinations: Other (no AVH reported) Delusions: No Delusion Type: Other (internal stimuli, loose) Suicidal: Ideation (No SI) Homicidal: Ideation (No HI) Insight/Judgment Poor Labs Date/Time Source Procedure Growth Status 08/09/17 14:12 Cerebral Spinal Fluid Lumbar Puncture Fungal Smear - Final NO FUNGAL ELEMENTS SEEN. Resulted 08/09/17 14:12 Cerebral Spinal Fluid Lumbar Puncture Fungal Culture - Preliminary NO GROWTH IN 1 WEEK Resulted Vitals/IOs Vital Signs Date Time Temp Pulse Resp B/P (MAP) Pulse Ox O2 Delivery O2 Flow Rate FiO2 08/19/17 05:14 97.1 74 18 133/77 (95) 08/18/17 05:54 94 Intake and Output 08/19/17 08/19/17 08/20/17 08:00 16:00 00:00 Intake Total 360 ml Balance 360 ml Assessment & Plan Problem List: (1) Primary degenerative dementia of the Alzheimer type, presenile onset ICD Codes: G30.0 - Alzheimer's disease with early onset; F02.80 - Dementia in other diseases classified elsewhere without behavioral disturbance Assessment & Plan Continue current treatment plan Justification for Cont. Inpt. Patient would decompensate in a less restrictive setting Request HC Surrog/Guard Advoc?: Yes Problem Qualifiers (1) Primary degenerative dementia of the Alzheimer type, presenile onset: Qualified Codes: G30.0 - Alzheimer's disease with early onset; F02.81 - Dementia in other diseases classified elsewhere with behavioral disturbance Arpan Castaneda DO Aug 19, 2017 12:56
[2017-08-19 16:56] VITALS: BP 146/75; PULSE 94; RESP 16; TEMP 97.1; O2SAT 98
[2017-08-19] MEDS: MELATONIN 5 MG TAB PO SCH (20:25)
[2017-08-20 05:18] VITALS: BP 107/59; PULSE 99; RESP 16; TEMP 97.5
[2017-08-20] MEDS: BENZTROPINE MESYLATE 1 MG TAB PO SCH ×2 (09:00→21:52)
[2017-08-20] MEDS: ARIPiprazole 5 MG TAB PO SCH (09:10)
[2017-08-20 10:15] VITALS: BP 116/77; PULSE 99; RESP 16; TEMP 97.5; O2SAT 97
--- NOTE | 2017-08-20 11:15 | HHI.PYPN ---
Subjective Remarks Patient seen in dayroom with nurse Mery and counselor Dayna, chart reviewed, neurology consult reviewed, along with EEG and imaging. Patient compliant medication. Patient sitting in day room. Is alert though diffusely confused all 4 spheres markedly disorganized in his speech. Also occasional tremors noted both upper extremities. For now continue treatment Review of Systems Except as stated in HPI: all other systems reviewed are Neg Objective Alert: Yes [place]: Person Mood: Oppositional Affect: Labile Memory Intact: Comment (impaired) Hallucinations: Other (no AVH reported) Delusions: No Delusion Type: Other (internal stimuli, loose) Suicidal: Ideation (No SI) Homicidal: Ideation (No HI) Insight/Judgment Very poor Labs Date/Time Source Procedure Growth Status 08/09/17 14:12 Cerebral Spinal Fluid Lumbar Puncture Fungal Smear - Final NO FUNGAL ELEMENTS SEEN. Resulted 08/09/17 14:12 Cerebral Spinal Fluid Lumbar Puncture Fungal Culture - Preliminary NO GROWTH IN 1 WEEK Resulted Vitals/IOs Vital Signs Date Time Temp Pulse Resp B/P (MAP) Pulse Ox O2 Delivery O2 Flow Rate FiO2 08/20/17 05:18 97.5 99 16 107/59 (75) 08/19/17 16:56 98 Intake and Output 08/20/17 08/20/17 08/21/17 08:00 16:00 00:00 Intake Total 240 ml Balance 240 ml Assessment & Plan Problem List: (1) Primary degenerative dementia of the Alzheimer type, presenile onset ICD Codes: G30.0 - Alzheimer's disease with early onset; F02.80 - Dementia in other diseases classified elsewhere without behavioral disturbance Assessment & Plan Estimated LOS: days patient continues demented confused, compliant medications , no significant behavioral problems at this time. Justification for Cont. Inpt. At this time patient decompensate the placed on the lower level of care Discharge Planning To be determined Request HC Surrog/Guard Advoc?: Yes Problem Qualifiers (1) Primary degenerative dementia of the Alzheimer type, presenile onset: Qualified Codes: G30.0 - Alzheimer's disease with early onset; F02.81 - Dementia in other diseases classified elsewhere with behavioral disturbance Troy Keys MD Aug 20, 2017 11:15
[2017-08-20 11:45] VITALS: BP 138/88; PULSE 97; RESP 16; TEMP 97.8; O2SAT 97
[2017-08-20 18:00] VITALS: BP 114/67; PULSE 92; RESP 18; TEMP 97.9; O2SAT 97
[2017-08-20] MEDS: MELATONIN 5 MG TAB PO SCH (21:52)
[2017-08-20 22:30] VITALS: BP 134/72; PULSE 96; RESP 18; TEMP 97; O2SAT 96
[2017-08-21 02:30] VITALS: BP 137/103; PULSE 95; RESP 16; TEMP 97.3
[2017-08-21 06:00] VITALS: BP 107/63; PULSE 92; RESP 18; O2SAT 97
[2017-08-21] MEDS: BENZTROPINE MESYLATE 1 MG TAB PO SCH ×2 (08:38→21:58)
[2017-08-21] MEDS: ARIPiprazole 5 MG TAB PO SCH (08:39)
--- NOTE | 2017-08-21 14:10 | HHI.PYPN ---
Subjective Remarks Patient sitting in dayroom patient seen with nurse Daisha. Chart reviewed. Patient compliant medication. Patient sitting with his shirt off sitting on the table when asked.He Showed Marked Disorganization with His Speech. He Continues Markedly Disorganized and Confused and Demented. Will increase his Abilify from 7.5 mg daily to 10 mg daily Review of Systems Except as stated in HPI: all other systems reviewed are Neg Objective Alert: Yes [place]: Person Mood: Oppositional Affect: Labile Memory Intact: Comment (impaired) Hallucinations: Other (no AVH reported) Delusions: No Delusion Type: Other (internal stimuli, loose) Suicidal: Ideation (No SI) Homicidal: Ideation (No HI) Insight/Judgment Very poor Labs Date/Time Source Procedure Growth Status 08/09/17 14:12 Cerebral Spinal Fluid Lumbar Puncture Fungal Smear - Final NO FUNGAL ELEMENTS SEEN. Resulted 08/09/17 14:12 Cerebral Spinal Fluid Lumbar Puncture Fungal Culture - Preliminary NO GROWTH IN 1 WEEK Resulted Vitals/IOs Vital Signs Date Time Temp Pulse Resp B/P (MAP) Pulse Ox O2 Delivery O2 Flow Rate FiO2 08/21/17 06:00 92 18 107/63 (78) 97 08/21/17 02:30 97.3 Intake and Output 08/21/17 08/21/17 08/22/17 08:00 16:00 00:00 Intake Total 480 ml Balance 480 ml Assessment & Plan Problem List: (1) Primary degenerative dementia of the Alzheimer type, presenile onset ICD Codes: G30.0 - Alzheimer's disease with early onset; F02.80 - Dementia in other diseases classified elsewhere without behavioral disturbance Assessment & Plan Estimated LOS: days patient remains confused disoriented demented, continues to take close off the day room. She medication adjustment above Justification for Cont. Inpt. At this time patient will decompensate placed in a lower level of care Discharge Planning To be determined Request HC Surrog/Guard Advoc?: Yes Problem Qualifiers (1) Primary degenerative dementia of the Alzheimer type, presenile onset: Qualified Codes: G30.0 - Alzheimer's disease with early onset; F02.81 - Dementia in other diseases classified elsewhere with behavioral disturbance Troy Keys MD Aug 21, 2017 14:10
[2017-08-21 18:34] VITALS: BP 109/75; PULSE 97; RESP 17; TEMP 97.9; O2SAT 98
[2017-08-21 19:30] VITALS: BP 132/75; PULSE 91; RESP 18; TEMP 97.6; O2SAT 98
[2017-08-21] MEDS: MELATONIN 5 MG TAB PO SCH (21:57)
[2017-08-22] MEDS: diphenhydrAMINE HCL 50 MG/ML VIAL - HS PRN IM (00:36)
[2017-08-22] MEDS: HALOPERIDOL LACTATE 5 MG/ML AMP IM PRN (01:09)
[2017-08-22 06:00] VITALS: BP 160/104; PULSE 102; RESP 18; TEMP 98.5; O2SAT 96
[2017-08-22 07:16] VITALS: BP 138/78; PULSE 97
--- NOTE | 2017-08-22 09:02 | HHI.PYPN ---
Subjective Remarks Patient seen in day room with nurse Aleida, chart reviewed, patient compliant medications. Patient continues overall fairly calm markedly disorganized with significant cognitive changes continues markedly tangential and circumstantial. There is very little eye contact. Though the been no significant behavioral problems except his tendency to take off his shirt. In any event patient is scheduled for [place] [facility] tomorrow remains quite confused needing significant assistance in all is ADLs. For now continue treatment no change Review of Systems Except as stated in HPI: all other systems reviewed are Neg Objective Alert: Yes [place]: Person Mood: Oppositional Affect: Labile Memory Intact: Comment (impaired) Hallucinations: Other (no AVH reported) Delusions: No Delusion Type: Other (internal stimuli, loose) Suicidal: Ideation (No SI) Homicidal: Ideation (No HI) Insight/Judgment Very poor Labs Date/Time Source Procedure Growth Status 08/09/17 14:12 Cerebral Spinal Fluid Lumbar Puncture Fungal Smear - Final NO FUNGAL ELEMENTS SEEN. Resulted 08/09/17 14:12 Cerebral Spinal Fluid Lumbar Puncture Fungal Culture - Preliminary NO GROWTH IN 1 WEEK Resulted Vitals/IOs Vital Signs Date Time Temp Pulse Resp B/P (MAP) Pulse Ox O2 Delivery O2 Flow Rate FiO2 08/22/17 07:16 97 138/78 (98) 08/22/17 06:00 98.5 18 96 Assessment & Plan Problem List: (1) Primary degenerative dementia of the Alzheimer type, presenile onset ICD Codes: G30.0 - Alzheimer's disease with early onset; F02.80 - Dementia in other diseases classified elsewhere without behavioral disturbance Assessment & Plan Estimated LOS: days patient continues confused and demented, though no significant behavioral problems. Justification for Cont. Inpt. This time patient would significantly decompensated the placed a lower level of care Discharge Planning To be determined Request HC Surrog/Guard Advoc?: Yes Problem Qualifiers (1) Primary degenerative dementia of the Alzheimer type, presenile onset: Qualified Codes: G30.0 - Alzheimer's disease with early onset; F02.81 - Dementia in other diseases classified elsewhere with behavioral disturbance Troy Keys MD Aug 22, 2017 09:02
[2017-08-22] MEDS: BENZTROPINE MESYLATE 1 MG TAB PO SCH ×2 (09:15→20:24)
[2017-08-22] MEDS: ARIPiprazole 10 MG TAB PO SCH (09:15)
[2017-08-22 18:00] VITALS: BP 127/75; PULSE 105; RESP 18; TEMP 98.2; O2SAT 94
[2017-08-22] MEDS: MELATONIN 5 MG TAB PO SCH (20:24)
[2017-08-22] MEDS: HALOPERIDOL 2 MG TAB PO PRN (20:27)
[2017-08-23 05:59] VITALS: BP 131/61; PULSE 90; RESP 17; O2SAT 98
[2017-08-23] MEDS: BENZTROPINE MESYLATE 1 MG TAB PO SCH ×2 (08:34→20:16)
[2017-08-23] MEDS: ARIPiprazole 10 MG TAB PO SCH (08:35)
--- NOTE | 2017-08-23 16:25 | HHI.PYPN ---
Subjective Remarks Patient seen in [place] [address] with patient's brother cousin and cousin's . Patient continues continued for 4 weeks. Continues confused disoriented though no significant behavioral problems. Placement remains problematic Review of Systems Except as stated in HPI: all other systems reviewed are Neg Mental Status Examination Appearance: Appropriate Consciousness: Alert Motor Activity: Abnormal gait Speech: Hesitant, Other (disorganized) Language: Other (poor) Fund of Knowledge: Poor Attention and Concentration: Other (poor) Memory: Impaired Mood: Other (slightly elevated) Affect: Other (slight increase range and intensity) Thought Process & Associations: Loose associations Thought Content: Other (disorganized) Hallucination Type: None Delusion Type: None Suicidal Ideation: No Suicidal Plan: No Suicidal Intention: No Homicidal Ideation: No Homicidal Plan: No Homicidal Intention: No Insight: Poor Judgment: Poor Results Labs Date/Time Source Procedure Growth Status 08/09/17 14:12 Cerebral Spinal Fluid Lumbar Puncture Fungal Smear - Final NO FUNGAL ELEMENTS SEEN. Resulted 08/09/17 14:12 Cerebral Spinal Fluid Lumbar Puncture Fungal Culture - Preliminary NO GROWTH IN 2 WEEKS Resulted Vitals/IOs Vital Signs Date Time Temp Pulse Resp B/P (MAP) Pulse Ox O2 Delivery O2 Flow Rate FiO2 08/23/17 05:59 90 17 131/61 (84) 98 08/22/17 18:00 98.2 Intake and Output 08/23/17 08/23/17 08/24/17 08:00 16:00 00:00 Intake Total 240 ml 720 ml Balance 240 ml 720 ml Assessment & Plan Problem List: (1) Primary degenerative dementia of the Alzheimer type, presenile onset ICD Codes: G30.0 - Alzheimer's disease with early onset; F02.80 - Dementia in other diseases classified elsewhere without behavioral disturbance Assessment & Plan Estimated LOS: days patient's case continued for [address] [place] [address]. Placement remains problematic Justification for Cont. Inpt. At this time patient will decompensate place an appropriate level of care Discharge Planning Placement remains quite problematic related patient and come and availability of placements Request HC Surrog/Guard Advoc?: Yes Problem Qualifiers (1) Primary degenerative dementia of the Alzheimer type, presenile onset: Qualified Codes: G30.0 - Alzheimer's disease with early onset; F02.81 - Dementia in other diseases classified elsewhere with behavioral disturbance Troy Keys MD Aug 23, 2017 16:25
[2017-08-23 17:55] VITALS: BP 123/69; PULSE 83; RESP 17; TEMP 98.7; O2SAT 98
[2017-08-23 18:09] VITALS: PULSE 83; RESP 17; TEMP 98.7; O2SAT 98
[2017-08-23] MEDS: diphenhydrAMINE HCL 50 MG CAP - HS PRN PO (20:16)
[2017-08-23] MEDS: ACETAMINOPHEN 325 MG TAB PO PRN (20:17)
[2017-08-23] MEDS: MELATONIN 5 MG TAB PO SCH (20:17)
[2017-08-23] MEDS: LORazepam 1 MG TAB PO PRN (20:17)
[2017-08-24 05:55] VITALS: BP 147/64; PULSE 89; RESP 17; TEMP 98.1
[2017-08-24] MEDS: ARIPiprazole 10 MG TAB PO SCH (09:14)
[2017-08-24] MEDS: BENZTROPINE MESYLATE 1 MG TAB PO SCH ×2 (09:14→21:02)
--- NOTE | 2017-08-24 11:00 | HHI.PYPN ---
Subjective Remarks Patient seen in day room with nurse Robbie, patient sitting in Mikayla chair he is calm alert diffusely confused and somewhat silly. Very poor eye contact. He is compliant with his medications. For now continue treatment Chief Complaint: patient psychotic with threatening behavior towards mother Review of Systems Except as stated in HPI: all other systems reviewed are Neg Mental Status Examination Appearance: Appropriate Consciousness: Alert Orientation: Person Motor Activity: Abnormal gait Speech: Hesitant, Other (disorganized) Language: Other (poor) Fund of Knowledge: Poor Attention and Concentration: Other (poor) Memory: Impaired Mood: Other (slightly elevated) Affect: Other (slight increase range and intensity) Thought Process & Associations: Loose associations Thought Content: Other (disorganized) Hallucination Type: None Delusion Type: None Suicidal Ideation: No Suicidal Plan: No Suicidal Intention: No Homicidal Ideation: No Homicidal Plan: No Homicidal Intention: No Insight: Poor Judgment: Poor Results Labs Date/Time Source Procedure Growth Status 08/09/17 14:12 Cerebral Spinal Fluid Lumbar Puncture Fungal Smear - Final NO FUNGAL ELEMENTS SEEN. Resulted 08/09/17 14:12 Cerebral Spinal Fluid Lumbar Puncture Fungal Culture - Preliminary NO GROWTH IN 2 WEEKS Resulted Vitals/IOs Vital Signs Date Time Temp Pulse Resp B/P (MAP) Pulse Ox O2 Delivery O2 Flow Rate FiO2 08/24/17 05:55 98.1 89 17 147/64 (91) 08/23/17 18:09 98 Intake and Output 08/24/17 08/24/17 08/25/17 08:00 16:00 00:00 Intake Total 480 ml Balance 480 ml Assessment & Plan Problem List: (1) Primary degenerative dementia of the Alzheimer type, presenile onset ICD Codes: G30.0 - Alzheimer's disease with early onset; F02.80 - Dementia in other diseases classified elsewhere without behavioral disturbance Assessment & Plan Estimated LOS: days patient continues confused demented nobehavioral problems. Compliant medications. Justification for Cont. Inpt. This time patient will decompensate have placed a lower level of care Discharge Planning With family being unable to care for patient we are looking for appropriate [facility]/ prison placement Request HC Surrog/Guard Advoc?: Yes Problem Qualifiers (1) Primary degenerative dementia of the Alzheimer type, presenile onset: Qualified Codes: G30.0 - Alzheimer's disease with early onset; F02.81 - Dementia in other diseases classified elsewhere with behavioral disturbance Troy Keys MD Aug 24, 2017 11:00
[2017-08-24 18:03] VITALS: BP 119/64; PULSE 82; RESP 18; TEMP 98.6; O2SAT 94
[2017-08-24] MEDS: diphenhydrAMINE HCL 50 MG CAP - HS PRN PO (21:02)
[2017-08-24] MEDS: MELATONIN 5 MG TAB PO SCH (21:02)
[2017-08-25 06:00] VITALS: BP 107/69; PULSE 70; RESP 16; TEMP 98.2; O2SAT 95
[2017-08-25] MEDS: ARIPiprazole 10 MG TAB PO SCH (09:07)
[2017-08-25] MEDS: BENZTROPINE MESYLATE 1 MG TAB PO SCH ×2 (09:07→20:23)
--- NOTE | 2017-08-25 11:56 | HHI.PYPN ---
Subjective Remarks Pt seen and discussed with staff. He tried to jump out of chair earlier today, but calmed with nurse intervention. Cooperative to care and pleasant during interview. Staff report that he has been more alert and engaged, but remains oriented to self only. He compliant with medications and tolerating them. No SI /HI Chief Complaint: patient psychotic with threatening behavior towards mother Mental Status Examination Appearance: Appropriate Consciousness: Alert O[place]: Person Motor Activity: Abnormal gait Speech: Hesitant, Other (soft) Language: Other (poor) Fund of Knowledge: Poor Attention and Concentration: Other (poor) Memory: Impaired (severe) Mood: Other (slightly elevated) Affect: Other (slight increase range and intensity) Thought Process & Associations: Loose associations Thought Content: Other (disorganized) Hallucination Type: None Delusion Type: None Suicidal Ideation: No Suicidal Plan: No Suicidal Intention: No Homicidal Ideation: No Homicidal Plan: No Homicidal Intention: No Insight: Poor Judgment: Poor Results Labs Date/Time Source Procedure Growth Status 08/09/17 14:12 Cerebral Spinal Fluid Lumbar Puncture Fungal Smear - Final NO FUNGAL ELEMENTS SEEN. Resulted 08/09/17 14:12 Cerebral Spinal Fluid Lumbar Puncture Fungal Culture - Preliminary NO GROWTH IN 2 WEEKS Resulted Vitals/IOs Vital Signs Date Time Temp Pulse Resp B/P (MAP) Pulse Ox O2 Delivery O2 Flow Rate FiO2 08/25/17 06:00 98.2 70 16 107/69 (82) 95 Intake and Output 08/25/17 08/25/17 08/25/17 07:59 15:59 23:59 Intake Total 360 ml Balance 360 ml Assessment & Plan Problem List: (1) Primary degenerative dementia of the Alzheimer type, presenile onset ICD Codes: G30.0 - Alzheimer's disease with early onset; F02.80 - Dementia in other diseases classified elsewhere without behavioral disturbance Assessment & Plan Continue current tx plan. Estimated LOS: days Justification for Cont. Inpt. risk of decompensation Request HC Surrog/Guard Advoc?: Yes Problem Qualifiers (1) Primary degenerative dementia of the Alzheimer type, presenile onset: Qualified Codes: G30.0 - Alzheimer's disease with early onset; F02.81 - Dementia in other diseases classified elsewhere with behavioral disturbance Valerie Cortes MD Aug 25, 2017 11:55
[2017-08-25] MEDS ORDERED: EUCERIN CREAM 120 GM JAR TOPICAL ONE (16:15)
[2017-08-25 18:30] VITALS: BP 104/57; PULSE 87; RESP 18; TEMP 97.4; O2SAT 97
[2017-08-25] MEDS: MELATONIN 5 MG TAB PO SCH (20:23)
[2017-08-25] MEDS: diphenhydrAMINE HCL 50 MG CAP - HS PRN PO (20:23)
[2017-08-26] VITALS (8 sets, daily range): BP systolic 112–133; BP diastolic 56–80; PULSE 71–107; RESP 16–20; TEMP 97.1–98.2; O2SAT 97–98
[2017-08-26] MEDS: LORazepam 1 MG TAB PO PRN (04:11)
[2017-08-26] MEDS: BENZTROPINE MESYLATE 1 MG TAB PO SCH ×2 (09:25→21:05)
[2017-08-26] MEDS: ARIPiprazole 10 MG TAB PO SCH (09:25)
--- NOTE | 2017-08-26 11:37 | HHI.PYPN ---
Subjective Remarks Pt seen and discussed with staff. No behavioral changes overnight. He is compliant with medications. He was cooperative with care. No aggression or agitation. No SI/HI Chief Complaint: Pt admitted due to psychosis with threatening behavior towards mother Mental Status Examination Appearance: Appropriate Consciousness: Alert Orientation: Person Motor Activity: Abnormal gait Speech: Hesitant, Other (soft) Language: Other (poor) Fund of Knowledge: Poor Attention and Concentration: Other (poor) Memory: Impaired (severe) Mood: Good Affect: Other (pleasant, smiling) Thought Process & Associations: Loose associations Thought Content: Other (disorganized) Hallucination Type: None Delusion Type: None Suicidal Ideation: No Suicidal Plan: No Suicidal Intention: No Homicidal Ideation: No Homicidal Plan: No Homicidal Intention: No Insight: Poor Judgment: Poor Results Labs Date/Time Source Procedure Growth Status 08/09/17 14:12 Cerebral Spinal Fluid Lumbar Puncture Fungal Smear - Final NO FUNGAL ELEMENTS SEEN. Resulted 08/09/17 14:12 Cerebral Spinal Fluid Lumbar Puncture Fungal Culture - Preliminary NO GROWTH IN 2 WEEKS Resulted Vitals/IOs Vital Signs Date Time Temp Pulse Resp B/P (MAP) Pulse Ox O2 Delivery O2 Flow Rate FiO2 08/26/17 04:00 97.5 79 17 125/73 (90) 97 Intake and Output 08/26/17 08/26/17 08/27/17 08:00 16:00 00:00 Intake Total 100 ml Balance 100 ml Assessment & Plan Problem List: (1) Primary degenerative dementia of the Alzheimer type, presenile onset ICD Codes: G30.0 - Alzheimer's disease with early onset; F02.80 - Dementia in other diseases classified elsewhere without behavioral disturbance Assessment & Plan Continue current tx plan. Estimated LOS: days Justification for Cont. Inpt. risk of decompensation Request HC Surrog/Guard Advoc?: Yes Problem Qualifiers (1) Primary degenerative dementia of the Alzheimer type, presenile onset: Qualified Codes: G30.0 - Alzheimer's disease with early onset; F02.81 - Dementia in other diseases classified elsewhere with behavioral disturbance Valerie Cortes MD Aug 26, 2017 11:37
[2017-08-26] MEDS: MELATONIN 5 MG TAB PO SCH (21:05)
[2017-08-27 00:05] VITALS: BP 116/56; PULSE 70; RESP 17; TEMP 98.1; O2SAT 96
[2017-08-27] MEDS: HALOPERIDOL 2 MG TAB PO PRN (01:32)
[2017-08-27 04:03] VITALS: BP 124/70; PULSE 83; RESP 18; TEMP 97.8; O2SAT 96
[2017-08-27] MEDS: BENZTROPINE MESYLATE 1 MG TAB PO SCH ×2 (08:56→20:49)
[2017-08-27] MEDS: ARIPiprazole 10 MG TAB PO SCH (08:56)
--- NOTE | 2017-08-27 09:23 | HHI.PYPN ---
Subjective Remarks Patient seen in dayroom with nurse Robbie and medical student mariela, chart review, discussed patient with staff it appears she is been having some consistent soft stool. We'll get stool ova parasite assessment. Otherwise patient continues confused disoriented though no significant behavioral problems. His compliant medication. For now continue treatment get testing as mentioned above Chief Complaint: Pt admitted due to psychosis with threatening behavior towards mother Review of Systems Except as stated in HPI: all other systems reviewed are Neg Mental Status Examination Appearance: Appropriate Consciousness: Alert Orientation: Person Motor Activity: Abnormal gait Speech: Hesitant, Other (soft) Language: Other (poor) Fund of Knowledge: Poor Attention and Concentration: Other (poor) Memory: Impaired (severe) Mood: Good Affect: Other (pleasant, smiling) Thought Process & Associations: Loose associations Thought Content: Other (disorganized) Hallucination Type: None Delusion Type: None Suicidal Ideation: No Suicidal Plan: No Suicidal Intention: No Homicidal Ideation: No Homicidal Plan: No Homicidal Intention: No Insight: Poor Judgment: Poor Results Labs Date/Time Source Procedure Growth Status 08/09/17 14:12 Cerebral Spinal Fluid Lumbar Puncture Fungal Smear - Final NO FUNGAL ELEMENTS SEEN. Resulted 08/09/17 14:12 Cerebral Spinal Fluid Lumbar Puncture Fungal Culture - Preliminary NO GROWTH IN 2 WEEKS Resulted Vitals/IOs Vital Signs Date Time Temp Pulse Resp B/P (MAP) Pulse Ox O2 Delivery O2 Flow Rate FiO2 08/27/17 04:03 97.8 83 18 124/70 (88) 96 Intake and Output 08/27/17 08/27/17 08/28/17 08:00 16:00 00:00 Intake Total 520 ml Balance 520 ml Assessment & Plan Problem List: (1) Primary degenerative dementia of the Alzheimer type, presenile onset ICD Codes: G30.0 - Alzheimer's disease with early onset; F02.80 - Dementia in other diseases classified elsewhere without behavioral disturbance Assessment & Plan Estimated LOS: days patient continues confused demented but no behavioral problems. We'll be getting stool specimen for ova and parasites. She has been having consistent soft stool Justification for Cont. Inpt. At this time patient will decompensate the placed a lower level of care Discharge Planning Continue to work on placement issues Request HC Surrog/Guard Advoc?: Yes Problem Qualifiers (1) Primary degenerative dementia of the Alzheimer type, presenile onset: Qualified Codes: G30.0 - Alzheimer's disease with early onset; F02.81 - Dementia in other diseases classified elsewhere with behavioral disturbance Troy Keys MD Aug 27, 2017 09:23
[2017-08-27 18:00] VITALS: BP 114/68; PULSE 69; RESP 18; TEMP 97.8; O2SAT 95
[2017-08-27 20:30] VITALS: BP 148/66; PULSE 83; RESP 17; TEMP 97.5; O2SAT 96
[2017-08-27] MEDS: MELATONIN 5 MG TAB PO SCH (20:49)
[2017-08-27] MEDS: diphenhydrAMINE HCL 50 MG CAP - HS PRN PO (20:51)
[2017-08-28] VITALS: BP 110/62; PULSE 79; RESP 17; TEMP 97.2; O2SAT 97
[2017-08-28 05:37] VITALS: BP 133/77; PULSE 88; RESP 17; TEMP 97.8; O2SAT 96
[2017-08-28] MEDS: BENZTROPINE MESYLATE 1 MG TAB PO SCH ×2 (08:33→20:44)
[2017-08-28] MEDS: ARIPiprazole 10 MG TAB PO SCH (08:33)
[2017-08-28] MEDS: HALOPERIDOL LACTATE 5 MG/ML AMP IM PRN (10:30)
--- NOTE | 2017-08-28 10:41 | HHI.PYPN ---
Subjective Remarks Patient seen in day room with floor staff, chart review, patient compliant medication. Patient more alert focused today though continues diffusely confused and disorganized. He at times makes attempts to get out of the Mikayla chair but he is redirectable. No other significant behavioral problems noted at this time. Chief Complaint: Pt admitted due to psychosis with threatening behavior towards mother Review of Systems Except as stated in HPI: all other systems reviewed are Neg Mental Status Examination Appearance: Appropriate Consciousness: Alert Orientation: Person Motor Activity: Abnormal gait Speech: Hesitant, Other (soft) Language: Other (poor) Fund of Knowledge: Poor Attention and Concentration: Other (poor) Memory: Impaired (severe) Mood: Good Affect: Other (pleasant, smiling) Thought Process & Associations: Loose associations Thought Content: Other (disorganized) Hallucination Type: None Delusion Type: None Suicidal Ideation: No Suicidal Plan: No Suicidal Intention: No Homicidal Ideation: No Homicidal Plan: No Homicidal Intention: No Insight: Poor Judgment: Poor Results Labs Date/Time Source Procedure Growth Status 08/09/17 14:12 Cerebral Spinal Fluid Lumbar Puncture Fungal Smear - Final NO FUNGAL ELEMENTS SEEN. Resulted 08/09/17 14:12 Cerebral Spinal Fluid Lumbar Puncture Fungal Culture - Preliminary NO GROWTH IN 2 WEEKS Resulted 08/27/17 10:45 Stool Stool Cryptosporidium Exam Pending Received 08/27/17 10:45 Stool Stool Giardia Antigen (BRIAN) Pending Received Vitals/IOs Vital Signs Date Time Temp Pulse Resp B/P (MAP) Pulse Ox O2 Delivery O2 Flow Rate FiO2 08/28/17 05:37 97.8 88 17 133/77 (95) 96 Intake and Output 08/28/17 08/28/17 08/28/17 07:59 15:59 23:59 Intake Total 360 ml Balance 360 ml Assessment & Plan Problem List: (1) Primary degenerative dementia of the Alzheimer type, presenile onset ICD Codes: G30.0 - Alzheimer's disease with early onset; F02.80 - Dementia in other diseases classified elsewhere without behavioral disturbance Assessment & Plan Estimated LOS: days patient continues confused demented but with some increased energy and alertness today Justification for Cont. Inpt. At this time patient will decompensate if placed in a lower level of care Discharge Planning The continue to work with family with placement issues Request HC Surrog/Guard Advoc?: Yes Problem Qualifiers (1) Primary degenerative dementia of the Alzheimer type, presenile onset: Qualified Codes: G30.0 - Alzheimer's disease with early onset; F02.81 - Dementia in other diseases classified elsewhere with behavioral disturbance Troy Keys MD Aug 28, 2017 10:41
[2017-08-28 18:13] VITALS: BP 116/65; PULSE 124; RESP 18; TEMP 97.4; O2SAT 99
[2017-08-28 19:43] VITALS: PULSE 85
[2017-08-28] MEDS: MELATONIN 5 MG TAB PO SCH (20:44)
[2017-08-29 06:18] VITALS: BP 107/58; PULSE 75; RESP 19; O2SAT 98
[2017-08-29] MEDS: ARIPiprazole 10 MG TAB PO SCH (08:57)
[2017-08-29] MEDS: BENZTROPINE MESYLATE 1 MG TAB PO SCH ×2 (08:58→20:29)
[2017-08-29] MEDS: HALOPERIDOL 2 MG TAB PO PRN ×2 (11:00→22:31)
--- NOTE | 2017-08-29 11:45 | HHI.PYPN ---
Subjective Remarks Patient seen in day room with floor staff, patient's chart review, compliant medication. Patient continues diffusely confused somewhat superficial and silly at times though staff states towards the afternoon he gets somewhat more rambunctious and labile. Will add 5 mg Abilify at 4 PM Chief Complaint: Pt admitted due to psychosis with threatening behavior towards mother Review of Systems Except as stated in HPI: all other systems reviewed are Neg Mental Status Examination Appearance: Appropriate Consciousness: Alert Orientation: Person Motor Activity: Abnormal gait Speech: Hesitant, Other (soft) Language: Other (poor) Fund of Knowledge: Poor Attention and Concentration: Other (poor) Memory: Impaired (severe) Mood: Good Affect: Other (pleasant, smiling) Thought Process & Associations: Loose associations Thought Content: Other (disorganized) Hallucination Type: None Delusion Type: None Suicidal Ideation: No Suicidal Plan: No Suicidal Intention: No Homicidal Ideation: No Homicidal Plan: No Homicidal Intention: No Insight: Poor Judgment: Poor Results Labs Date/Time Source Procedure Growth Status 08/09/17 14:12 Cerebral Spinal Fluid Lumbar Puncture Fungal Smear - Final NO FUNGAL ELEMENTS SEEN. Resulted 08/09/17 14:12 Cerebral Spinal Fluid Lumbar Puncture Fungal Culture - Preliminary NO GROWTH IN 2 WEEKS Resulted 08/27/17 10:45 Stool Stool Cryptosporidium Exam Pending Received 08/27/17 10:45 Stool Stool Giardia Antigen (BRIAN) Pending Received Vitals/IOs Vital Signs Date Time Temp Pulse Resp B/P (MAP) Pulse Ox O2 Delivery O2 Flow Rate FiO2 08/29/17 06:18 75 19 107/58 (74) 98 08/28/17 18:13 97.4 Intake and Output 08/29/17 08/29/17 08/29/17 07:59 15:59 23:59 Intake Total 240 ml Balance 240 ml Assessment & Plan Problem List: (1) Primary degenerative dementia of the Alzheimer type, presenile onset ICD Codes: G30.0 - Alzheimer's disease with early onset; F02.80 - Dementia in other diseases classified elsewhere without behavioral disturbance Assessment & Plan Estimated LOS: days patient continues diffusely confused and demented, some increased behaviors towards the afternoon. Will add 5 mg Abilify at 4 PM Justification for Cont. Inpt. This time patient will decompensate if placed in a lower level of care Discharge Planning Counselors continue to work on placement issues Request HC Surrog/Guard Advoc?: Yes Problem Qualifiers (1) Primary degenerative dementia of the Alzheimer type, presenile onset: Qualified Codes: G30.0 - Alzheimer's disease with early onset; F02.81 - Dementia in other diseases classified elsewhere with behavioral disturbance Troy Keys MD Aug 29, 2017 11:45
[2017-08-29] MEDS: ARIPiprazole 5 MG TAB PO SCH (16:00)
[2017-08-29 18:08] VITALS: BP 126/70; PULSE 77; RESP 20; TEMP 97.8; O2SAT 99
[2017-08-29] MEDS: diphenhydrAMINE HCL 50 MG CAP - HS PRN PO (20:29)
[2017-08-29] MEDS: MELATONIN 5 MG TAB PO SCH (20:29)
[2017-08-30 05:29] VITALS: BP 110/56; PULSE 68; RESP 17; TEMP 97.5; O2SAT 95
[2017-08-30] MEDS: HALOPERIDOL 2 MG TAB PO PRN (08:37)
[2017-08-30] MEDS: BENZTROPINE MESYLATE 1 MG TAB PO SCH ×2 (08:37→21:36)
[2017-08-30] MEDS: ARIPiprazole 10 MG TAB PO SCH (08:37)
--- NOTE | 2017-08-30 09:21 | HHI.PYPN ---
Subjective Remarks Patient seen in dayroom with floor staff, chart review, patient compliant medications. Patient continues alert somewhat superficial silly and confused. Patient did tolerate a haircut done by staff yesterday looks much better. Placement remains problematic Chief Complaint: Pt admitted due to psychosis with threatening behavior towards mother Review of Systems Except as stated in HPI: all other systems reviewed are Neg Mental Status Examination Appearance: Appropriate Consciousness: Alert Orientation: Person Motor Activity: Abnormal gait Speech: Hesitant, Other (soft) Language: Other (poor) Fund of Knowledge: Poor Attention and Concentration: Other (poor) Memory: Impaired (severe) Mood: Good Affect: Other (pleasant, smiling) Thought Process & Associations: Loose associations Thought Content: Other (disorganized) Hallucination Type: None Delusion Type: None Suicidal Ideation: No Suicidal Plan: No Suicidal Intention: No Homicidal Ideation: No Homicidal Plan: No Homicidal Intention: No Insight: Poor Judgment: Poor Results Labs Date/Time Source Procedure Growth Status 08/09/17 14:12 Cerebral Spinal Fluid Lumbar Puncture Fungal Smear - Final NO FUNGAL ELEMENTS SEEN. Resulted 08/09/17 14:12 Cerebral Spinal Fluid Lumbar Puncture Fungal Culture - Preliminary NO GROWTH IN 2 WEEKS Resulted 08/27/17 10:45 Stool Stool Cryptosporidium Exam Pending Received 08/27/17 10:45 Stool Stool Giardia Antigen (BRIAN) Pending Received Vitals/IOs Vital Signs Date Time Temp Pulse Resp B/P (MAP) Pulse Ox O2 Delivery O2 Flow Rate FiO2 08/30/17 05:29 97.5 68 17 110/56 (74) 95 Intake and Output 08/30/17 08/30/17 08/31/17 08:00 16:00 00:00 Intake Total 480 ml Balance 480 ml Assessment & Plan Problem List: (1) Primary degenerative dementia of the Alzheimer type, presenile onset ICD Codes: G30.0 - Alzheimer's disease with early onset; F02.80 - Dementia in other diseases classified elsewhere without behavioral disturbance Assessment & Plan Estimated LOS: days patient continues confused demented but pleasant. No significant behavioral problems. For now continue treatment Justification for Cont. Inpt. At this time patient decompensate no place to a lower level of care Discharge Planning Continue to work with family to find appropriate placement Request HC Surrog/Guard Advoc?: Yes Problem Qualifiers (1) Primary degenerative dementia of the Alzheimer type, presenile onset: Qualified Codes: G30.0 - Alzheimer's disease with early onset; F02.81 - Dementia in other diseases classified elsewhere with behavioral disturbance Troy Keys MD Aug 30, 2017 09:21
[2017-08-30] MEDS: ARIPiprazole 5 MG TAB PO SCH (16:00)
[2017-08-30 18:04] VITALS: BP 117/57; PULSE 86; RESP 18; TEMP 98.1; O2SAT 96
[2017-08-30] MEDS: diphenhydrAMINE HCL 50 MG CAP - HS PRN PO (21:36)
[2017-08-30] MEDS: MELATONIN 5 MG TAB PO SCH (21:37)
[2017-08-31 04:00] VITALS: BP 136/73; PULSE 79; RESP 17; TEMP 97; O2SAT 98
[2017-08-31] MEDS: BENZTROPINE MESYLATE 1 MG TAB PO SCH ×2 (08:05→21:12)
[2017-08-31] MEDS: ARIPiprazole 10 MG TAB PO SCH (08:05)
--- NOTE | 2017-08-31 09:13 | HHI.PYPN ---
Subjective Remarks Patient seen in day room with medical student tanya, patient alert calm diffusely confused, no significant behavioral problems. However staff states the patient has been having very poor sleep habits up much of the night. Even with the use of melatonin. We'll discontinue the melatonin and trazodone 25 mg at at bedtime Chief Complaint: Pt admitted due to psychosis with threatening behavior towards mother Review of Systems Except as stated in HPI: all other systems reviewed are Neg Mental Status Examination Appearance: Appropriate Consciousness: Alert Orientation: Person Motor Activity: Abnormal gait Speech: Hesitant, Other (soft) Language: Other (poor) Fund of Knowledge: Poor Attention and Concentration: Other (poor) Memory: Impaired (severe) Mood: Good Affect: Other (pleasant, smiling) Thought Process & Associations: Loose associations Thought Content: Other (disorganized) Hallucination Type: None Delusion Type: None Suicidal Ideation: No Suicidal Plan: No Suicidal Intention: No Homicidal Ideation: No Homicidal Plan: No Homicidal Intention: No Insight: Poor Judgment: Poor Results Labs Date/Time Source Procedure Growth Status 08/09/17 14:12 Cerebral Spinal Fluid Lumbar Puncture Fungal Smear - Final NO FUNGAL ELEMENTS SEEN. Resulted 08/09/17 14:12 Cerebral Spinal Fluid Lumbar Puncture Fungal Culture - Preliminary NO GROWTH IN 3 WEEKS Resulted Vitals/IOs Vital Signs Date Time Temp Pulse Resp B/P (MAP) Pulse Ox O2 Delivery O2 Flow Rate FiO2 08/31/17 04:00 97.0 79 17 136/73 (94) 98 Intake and Output 08/31/17 08/31/17 09/01/17 08:00 16:00 00:00 Intake Total 120 ml Balance 120 ml Assessment & Plan Problem List: (1) Primary degenerative dementia of the Alzheimer type, presenile onset ICD Codes: G30.0 - Alzheimer's disease with early onset; F02.80 - Dementia in other diseases classified elsewhere without behavioral disturbance Assessment & Plan Estimated LOS: days patient continues confused disoriented with poor sleep habits. She medication adjustment above. Patient no significant behavioral problems during the day Justification for Cont. Inpt. At this time patient will decompensate if placed in a lower level of care Discharge Planning Placement remains quite problematic patient unable to return home, funding is difficult this time related to placement Request HC Surrog/Guard Advoc?: Yes Problem Qualifiers (1) Primary degenerative dementia of the Alzheimer type, presenile onset: Qualified Codes: G30.0 - Alzheimer's disease with early onset; F02.81 - Dementia in other diseases classified elsewhere with behavioral disturbance Troy Keys MD Aug 31, 2017 09:13
[2017-08-31] MEDS: ARIPiprazole 5 MG TAB PO SCH (16:00)
[2017-08-31] MEDS: LORazepam 1 MG TAB PO PRN (16:01)
[2017-08-31 18:05] VITALS: BP 111/68; PULSE 90; RESP 18; TEMP 98.3; O2SAT 98
[2017-08-31] MEDS: diphenhydrAMINE HCL 50 MG CAP - HS PRN PO (21:12)
[2017-08-31] MEDS: traZODone HCL 50 MG TAB PO SCH (21:12)
[2017-09-01 06:48] VITALS: BP 115/71; PULSE 70; RESP 17; TEMP 98; O2SAT 100
[2017-09-01] MEDS: ARIPiprazole 10 MG TAB PO SCH (09:12)
[2017-09-01] MEDS: BENZTROPINE MESYLATE 1 MG TAB PO SCH ×2 (09:12→20:39)
--- NOTE | 2017-09-01 11:58 | HHI.PYPN ---
Subjective Remarks Patient was seen and case discussed with nursing. Patient is alert and oriented 1. Remains grossly confused and disheveled. Behaving well on the unit and compliant with his medications. No outbursts. Chief Complaint: Pt admitted due to psychosis with threatening behavior towards mother Mental Status Examination Appearance: Appropriate Consciousness: Alert Orientation: Person Motor Activity: Abnormal gait Speech: Hesitant, Other (soft) Language: Other (poor) Fund of Knowledge: Poor Attention and Concentration: Other (poor) Memory: Impaired (severe) Mood: Good Affect: Other (pleasant, smiling) Thought Process & Associations: Loose associations Thought Content: Other (disorganized) Hallucination Type: None Delusion Type: None Suicidal Ideation: No Suicidal Plan: No Suicidal Intention: No Homicidal Ideation: No Homicidal Plan: No Homicidal Intention: No Insight: Poor Judgment: Poor Results Labs Date/Time Source Procedure Growth Status 08/09/17 14:12 Cerebral Spinal Fluid Lumbar Puncture Fungal Smear - Final NO FUNGAL ELEMENTS SEEN. Resulted 08/09/17 14:12 Cerebral Spinal Fluid Lumbar Puncture Fungal Culture - Preliminary NO GROWTH IN 3 WEEKS Resulted Vitals/IOs Vital Signs Date Time Temp Pulse Resp B/P (MAP) Pulse Ox O2 Delivery O2 Flow Rate FiO2 09/01/17 06:48 98.0 70 17 115/71 (86) 100 Intake and Output 09/01/17 09/01/17 09/02/17 08:00 16:00 00:00 Intake Total 120 ml 480 ml Balance 120 ml 480 ml Assessment & Plan Problem List: (1) Primary degenerative dementia of the Alzheimer type, presenile onset ICD Codes: G30.0 - Alzheimer's disease with early onset; F02.80 - Dementia in other diseases classified elsewhere without behavioral disturbance Assessment & Plan Continue current treatment plan Justification for Cont. Inpt. Patient would decompensate in a less restrictive setting Request HC Surrog/Guard Advoc?: Yes Problem Qualifiers (1) Primary degenerative dementia of the Alzheimer type, presenile onset: Qualified Codes: G30.0 - Alzheimer's disease with early onset; F02.81 - Dementia in other diseases classified elsewhere with behavioral disturbance Arpan Castaneda DO Sep 01, 2017 11:58
[2017-09-01] MEDS: ARIPiprazole 5 MG TAB PO SCH (16:00)
[2017-09-01 20:00] VITALS: BP 126/66; PULSE 78; RESP 18; TEMP 97.9; O2SAT 94
[2017-09-01] MEDS: traZODone HCL 50 MG TAB PO SCH (20:39)
[2017-09-02] MEDS: EUCERIN CREAM 120 GM JAR EXTERNAL PRN (05:18)
[2017-09-02 05:46] VITALS: BP 127/64; PULSE 92; RESP 17; TEMP 98.1; O2SAT 97
[2017-09-02] MEDS: BENZTROPINE MESYLATE 1 MG TAB PO SCH ×2 (12:13→20:24)
[2017-09-02] MEDS: ARIPiprazole 10 MG TAB PO SCH (12:13)
--- NOTE | 2017-09-02 13:57 | PD.PN.STU ---
Subjective Remarks rhonda is a 57 y.o male with a hx of schizophrenia who has been in the inpatient psychiatric unit at [facility] since 07/18/2017. Rhonda was previously been cared for by mother. Mother is now at hospice. Today, yuliet seemed to be lethargic. He did not eat breakfast. Upon interview he responded to questions appropriately however he did not make any eye contact. Pt also seemed to be internally pre- occupied. Objective Vitals Vital Signs Date Time Temp Pulse Resp B/P (MAP) Pulse Ox O2 Delivery O2 Flow Rate FiO2 09/02/17 05:46 98.1 92 17 127/64 (85) 97 09/01/17 20:00 97.9 78 18 126/66 (86) 94 I/O 09/01/17 09/01/17 09/01/17 09/02/17 09/02/17 09/02/17 07:00 15:00 23:00 07:00 15:00 23:00 Intake Total 120 ml 480 ml 960 ml Balance 120 ml 480 ml 960 ml Intake Oral 120 ml 480 ml 960 ml # Voids 2 3 2 Objective Remarks rhonda is a 57 y.o male that seems older than stated age. He is dressed in hospital gown. Looks disheveled. Did not make any eye contact, however responded to questions appropriately. The tone of his speech was soft, with long pauses. seemed to be responding to internal stimuli Nishi Hayward M3 Sep 02, 2017 13:57
--- NOTE | 2017-09-02 16:28 | HHI.PYPN ---
Subjective Remarks Patient was seen and case discussed with nursing. Patient is pleasant and cooperative with exam. Appears less internally preoccupied. Alert and oriented 1. Lethargic per nursing this morning. There is conflicting information of whether he is sleeping or not sleeping at night thought processes disorganized. Chief Complaint: Pt admitted due to psychosis with threatening behavior towards mother Mental Status Examination Appearance: Appropriate Consciousness: Alert Orientation: Person Motor Activity: Abnormal gait Speech: Hesitant, Other (soft) Language: Other (poor) Fund of Knowledge: Poor Attention and Concentration: Other (poor) Memory: Impaired (severe) Mood: Good Affect: Blunt Thought Process & Associations: Loose associations Thought Content: Other (disorganized) Hallucination Type: None Delusion Type: None Suicidal Ideation: No Suicidal Plan: No Suicidal Intention: No Homicidal Ideation: No Homicidal Plan: No Homicidal Intention: No Insight: Poor Judgment: Poor Results Labs Date/Time Source Procedure Growth Status 08/09/17 14:12 Cerebral Spinal Fluid Lumbar Puncture Fungal Smear - Final NO FUNGAL ELEMENTS SEEN. Resulted 08/09/17 14:12 Cerebral Spinal Fluid Lumbar Puncture Fungal Culture - Preliminary NO GROWTH IN 3 WEEKS Resulted Vitals/IOs Vital Signs Date Time Temp Pulse Resp B/P (MAP) Pulse Ox O2 Delivery O2 Flow Rate FiO2 09/02/17 05:46 98.1 92 17 127/64 (85) 97 Assessment & Plan Problem List: (1) Primary degenerative dementia of the Alzheimer type, presenile onset ICD Codes: G30.0 - Alzheimer's disease with early onset; F02.80 - Dementia in other diseases classified elsewhere without behavioral disturbance Assessment & Plan Continue current treatment plan Justification for Cont. Inpt. Patient would decompensate in a less restrictive setting Request HC Surrog/Guard Advoc?: Yes Problem Qualifiers (1) Primary degenerative dementia of the Alzheimer type, presenile onset: Qualified Codes: G30.0 - Alzheimer's disease with early onset; F02.81 - Dementia in other diseases classified elsewhere with behavioral disturbance Arpan Castaneda DO Sep 02, 2017 16:28
[2017-09-02] MEDS: ARIPiprazole 5 MG TAB PO SCH (17:07)
[2017-09-02 19:35] VITALS: BP 134/81; PULSE 96; RESP 18; TEMP 98.4
[2017-09-02] MEDS: traZODone HCL 50 MG TAB PO SCH ×2 (20:25→20:26)
[2017-09-03 05:41] VITALS: BP 118/55; PULSE 87; RESP 18; TEMP 97.5
[2017-09-03] MEDS: EUCERIN CREAM 120 GM JAR EXTERNAL PRN (05:51)
[2017-09-03] MEDS: BENZTROPINE MESYLATE 1 MG TAB PO SCH ×2 (08:37→20:37)
[2017-09-03] MEDS: ARIPiprazole 10 MG TAB PO SCH (08:37)
--- NOTE | 2017-09-03 12:37 | PD.PN.STU ---
Subjective Remarks pt was seen and case was discussed with nurse. Pt seems pleasantly confused. He seems lethargic. Per nurse, he has not been sleeping well at night. Objective Vitals Vital Signs Date Time Temp Pulse Resp B/P (MAP) Pulse Ox O2 Delivery O2 Flow Rate FiO2 09/03/17 05:41 97.5 87 18 118/55 (76) 09/02/17 19:35 98.4 96 18 134/81 (98) I/O 09/02/17 09/02/17 09/02/17 09/03/17 09/03/17 09/03/17 06:59 14:59 22:59 06:59 14:59 22:59 Intake Total 960 ml 240 ml Balance 960 ml 240 ml Intake Oral 960 ml 240 ml # Voids 2 2 Objective Remarks Alert: Yes [place]: Person (at least) Mood: Anxious Affect: Flat, Blunted Memory Intact: seems impaired on clinical exam Hallucinations: Remains int stim Delusions: unk Delusion Type: Suicidal: (no SI) Homicidal: (no HI) Insight/Judgment Poor A/P Assessment and Plan pt will continue on current medication. currently placement is being sought Nishi Hayward M3 Sep 03, 2017 12:37
--- NOTE | 2017-09-03 15:13 | HHI.PYPN ---
Subjective Remarks Patient seen in his Mikayla chair in the day room, patient napping, patient is seen with medical student mariela, patient arousable to somewhat sleepy confused but pleasant with me. Though staff states she has had some episodes of irritability when approached. Patient compliant medication Chief Complaint: Pt admitted due to psychosis with threatening behavior towards mother Review of Systems Except as stated in HPI: all other systems reviewed are Neg Mental Status Examination Appearance: Appropriate Consciousness: Alert Orientation: Person Motor Activity: Abnormal gait Speech: Hesitant, Other (soft) Language: Other (poor) Fund of Knowledge: Poor Attention and Concentration: Other (poor) Memory: Impaired (severe) Mood: Good Affect: Blunt Thought Process & Associations: Loose associations Thought Content: Other (disorganized) Hallucination Type: None Delusion Type: None Suicidal Ideation: No Suicidal Plan: No Suicidal Intention: No Homicidal Ideation: No Homicidal Plan: No Homicidal Intention: No Insight: Poor Judgment: Poor Results Labs Date/Time Source Procedure Growth Status 08/09/17 14:12 Cerebral Spinal Fluid Lumbar Puncture Fungal Smear - Final NO FUNGAL ELEMENTS SEEN. Resulted 08/09/17 14:12 Cerebral Spinal Fluid Lumbar Puncture Fungal Culture - Preliminary NO GROWTH IN 3 WEEKS Resulted Vitals/IOs Vital Signs Date Time Temp Pulse Resp B/P (MAP) Pulse Ox O2 Delivery O2 Flow Rate FiO2 09/03/17 05:41 97.5 87 18 118/55 (76) 09/02/17 05:46 97 Intake and Output 09/03/17 09/03/17 09/03/17 07:59 15:59 23:59 Intake Total 240 ml Balance 240 ml Assessment & Plan Problem List: (1) Primary degenerative dementia of the Alzheimer type, presenile onset ICD Codes: G30.0 - Alzheimer's disease with early onset; F02.80 - Dementia in other diseases classified elsewhere without behavioral disturbance Assessment & Plan Estimated LOS: days patient is confused and demented. The other significant behavioral problems. Compliant medicine Justification for Cont. Inpt. At this time patient would decompensate if not placed in an appropriate level of care Discharge Planning Placement remains problematic counselors are working on placement issues and financial issues Request HC Surrog/Guard Advoc?: Yes Problem Qualifiers (1) Primary degenerative dementia of the Alzheimer type, presenile onset: Qualified Codes: G30.0 - Alzheimer's disease with early onset; F02.81 - Dementia in other diseases classified elsewhere with behavioral disturbance Troy Keys MD Sep 03, 2017 15:13
[2017-09-03] MEDS: ARIPiprazole 5 MG TAB PO SCH (16:11)
[2017-09-03 18:00] VITALS: BP 104/57; PULSE 73; RESP 17; TEMP 97.3; O2SAT 98
[2017-09-03] MEDS: traZODone HCL 50 MG TAB PO SCH (20:37)
[2017-09-04 06:00] VITALS: BP 113/61; PULSE 85; RESP 18; TEMP 97.2; O2SAT 99
[2017-09-04] MEDS: BENZTROPINE MESYLATE 1 MG TAB PO SCH ×2 (09:34→20:40)
[2017-09-04] MEDS: ARIPiprazole 10 MG TAB PO SCH (09:34)
--- NOTE | 2017-09-04 10:59 | HHI.PYPN ---
Subjective Remarks Patient seen in day room with medical studentchrist sierra, chart reviewed, patient compliant medications. Patient continues diffusely confused at times babbling and laughing to himself. Though no significant other behaviors. Is compliant with medications. Placement remains quite problematic. Dr. Guadalupe is back medication. Will return patient to his service tomorrow Chief Complaint: Pt admitted due to psychosis with threatening behavior towards mother Review of Systems Except as stated in HPI: all other systems reviewed are Neg Mental Status Examination Appearance: Appropriate Consciousness: Alert Orientation: Person Motor Activity: Abnormal gait Speech: Hesitant, Other (soft) Language: Other (poor) Fund of Knowledge: Poor Attention and Concentration: Other (poor) Memory: Impaired (severe) Mood: Good Affect: Blunt Thought Process & Associations: Loose associations Thought Content: Other (disorganized) Hallucination Type: None Delusion Type: None Suicidal Ideation: No Suicidal Plan: No Suicidal Intention: No Homicidal Ideation: No Homicidal Plan: No Homicidal Intention: No Insight: Poor Judgment: Poor Results Labs Date/Time Source Procedure Growth Status 08/09/17 14:12 Cerebral Spinal Fluid Lumbar Puncture Fungal Smear - Final NO FUNGAL ELEMENTS SEEN. Resulted 08/09/17 14:12 Cerebral Spinal Fluid Lumbar Puncture Fungal Culture - Preliminary NO GROWTH IN 3 WEEKS Resulted Vitals/IOs Vital Signs Date Time Temp Pulse Resp B/P (MAP) Pulse Ox O2 Delivery O2 Flow Rate FiO2 09/04/17 06:00 97.2 85 18 113/61 (78) 99 Assessment & Plan Problem List: (1) Primary degenerative dementia of the Alzheimer type, presenile onset ICD Codes: G30.0 - Alzheimer's disease with early onset; F02.80 - Dementia in other diseases classified elsewhere without behavioral disturbance Assessment & Plan Estimated LOS: days patient remains confused and demented, no significant behavioral problems. Compliant medications. Patient to be transferred back Dr. Guadalupe service tomorrow Justification for Cont. Inpt. At this time patient will decompensate the placed in a lower level of care Discharge Planning Please remains problematic due to financial issues Request HC Surrog/Guard Advoc?: Yes Problem Qualifiers (1) Primary degenerative dementia of the Alzheimer type, presenile onset: Qualified Codes: G30.0 - Alzheimer's disease with early onset; F02.81 - Dementia in other diseases classified elsewhere with behavioral disturbance Troy Keys MD Sep 04, 2017 10:59
[2017-09-04] MEDS: ARIPiprazole 5 MG TAB PO SCH (16:22)
[2017-09-04 18:00] VITALS: BP 120/60; PULSE 89; RESP 18; TEMP 97.9; O2SAT 100
[2017-09-04] MEDS: traZODone HCL 50 MG TAB PO SCH (20:40)
--- NOTE | 2017-09-05 08:16 | HHI.PYPN ---
Subjective Remarks I am resuming care of patient from Dr. Keys. Patient seen and examined. Chart reviewed. Case discussed with nursing staff. No behavioral issues overnight per nursing staff. Patient has not required any Haldol or Ativan PRN in >4 days. On my examination today, the patient remains quite confused. Speech is rambling, and he often gives irrelevant answers. For example when I ask him about the location he gives his name. Denies complaints of pain. Review of Systems ROS Limitations: Poor Historian Other Limited ROS because of mental status. Mental Status Examination Appearance: Appropriate Consciousness: Alert Orientation: Person Motor Activity: Other (Mild resting tremor seems improved from when I last saw him. No other motor abnormalities noted.) Speech: Other (rambling) Fund of Knowledge: Poor Attention and Concentration: Other (poor) Memory: Impaired Mood: Other (No issues with mood identified) Affect: Flat Thought Process & Associations: Disorganized, Other (paucity of thought) Hallucination Type: None Delusion Type: None Suicidal Ideation: No Suicidal Plan: No Suicidal Intention: No Homicidal Ideation: No Homicidal Plan: No Homicidal Intention: No Insight: Poor Judgment: Poor Results Labs Date/Time Source Procedure Growth Status 08/09/17 14:12 Cerebral Spinal Fluid Lumbar Puncture Fungal Smear - Final NO FUNGAL ELEMENTS SEEN. Resulted 08/09/17 14:12 Cerebral Spinal Fluid Lumbar Puncture Fungal Culture - Preliminary NO GROWTH IN 3 WEEKS Resulted Labs reviewed. No new labs. Vitals/IOs Vital Signs Date Time Temp Pulse Resp B/P (MAP) Pulse Ox O2 Delivery O2 Flow Rate FiO2 09/04/17 18:00 97.9 89 18 120/60 (80) 100 Intake and Output 09/05/17 09/05/17 09/06/17 08:00 16:00 00:00 Intake Total 360 ml Balance 360 ml Assessment & Plan Problem List: (1) Primary degenerative dementia of the Alzheimer type, presenile onset ICD Codes: G30.0 - Alzheimer's disease with early onset; F02.80 - Dementia in other diseases classified elsewhere without behavioral disturbance Assessment & Plan Check an updated set of basic laboratories. Continue Abilify as ordered. Continue trazodone as ordered. Continue to monitor on the geropsychiatric unit. Continue other medications and care as ordered. Justification for Cont. Inpt. Impairment in reality construction as a consequence of his dementia. Impairment in self-care. High risk for decompensation in less restrictive environment. Discharge Planning Case discussed with counselor. Awaiting payer source to support placement. Request HC Surrog/Guard Advoc?: Yes Problem Qualifiers (1) Primary degenerative dementia of the Alzheimer type, presenile onset: Qualified Codes: G30.0 - Alzheimer's disease with early onset; F02.81 - Dementia in other diseases classified elsewhere with behavioral disturbance Reinaldo Guadalupe MD Sep 05, 2017 08:16
[2017-09-05] MEDS: BENZTROPINE MESYLATE 1 MG TAB PO SCH ×2 (09:43→20:45)
[2017-09-05] MEDS: ARIPiprazole 10 MG TAB PO SCH (09:43)
[2017-09-05] MEDS: ARIPiprazole 5 MG TAB PO SCH (16:00)
[2017-09-05 18:38] VITALS: BP 100/71; PULSE 77; RESP 18; TEMP 97.4; O2SAT 98
[2017-09-05] MEDS: traZODone HCL 50 MG TAB PO SCH (20:45)
[2017-09-06 06:11] VITALS: BP 107/56; PULSE 70; RESP 16; TEMP 97.8; O2SAT 97
[2017-09-06] MEDS: BENZTROPINE MESYLATE 1 MG TAB PO SCH ×2 (08:32→20:44)
[2017-09-06] MEDS: ARIPiprazole 10 MG TAB PO SCH (08:32)
--- NOTE | 2017-09-06 10:58 | HHI.PYPN ---
Subjective Remarks Patient seen and examined. Chart reviewed. Case discussed with nursing staff. No behavioral problems noted. On my examination today, the patient seems somewhat more interactive. He remains quite disoriented and confused however overall, for example giving the year as 18,000 and the location as a school. He denies any complaints of pain. No agatha psychotic symptoms. No evidence side effects from medications. Review of Systems ROS Limitations: Poor Historian Other Limited ROS because of cognitive impairment. Mental Status Examination Appearance: Appropriate Consciousness: Alert Orientation: Person Motor Activity: Other (no new motor abnormalities noted) Speech: Other (responses somewhat more appropriate today) Fund of Knowledge: Poor Attention and Concentration: Other (poor) Memory: Impaired Mood: Good Affect: Euthymic Thought Process & Associations: Disorganized Hallucination Type: None Delusion Type: None Suicidal Ideation: No (none voiced) Homicidal Ideation: No (none voiced) Insight: Poor Judgment: Poor Results Labs Test 09/06/17 09:44 Date/Time Source Procedure Growth Status 08/09/17 14:12 Cerebral Spinal Fluid Lumbar Puncture Fungal Smear - Final NO FUNGAL ELEMENTS SEEN. Resulted 08/09/17 14:12 Cerebral Spinal Fluid Lumbar Puncture Fungal Culture - Preliminary NO GROWTH IN 3 WEEKS Resulted Item Value Date Time White Blood Count 6.8 TH/MM3 09/06/17 09 Hemoglobin 15.3 GM/DL 09/06/17 09 Platelet Count 349 TH/MM3 09/06/17 09 Sodium Level 138 MEQ/L 09/06/17 09 Potassium Level 3.7 MEQ/L 09/06/17 09 Chloride Level 106 MEQ/L 09/06/17 09 Carbon Dioxide Level 27.3 MEQ/L 09/06/17 09 Blood Urea Nitrogen 19 MG/DL H 09/06/17 0944 Creatinine 0.70 MG/DL 09/06/17 09 Estimat Glomerular Filtration Rate 115 ML/MIN 09/06/17 09 Random Glucose 84 MG/DL 09/06/17 09 Aspartate Amino Transf (AST/SGOT) 19 U/L 09/06/17 09 Alanine Aminotransferase (ALT/SGPT) 32 U/L 09/06/17 09 Alkaline Phosphatase 92 U/L 09/06/17 09 Labs reviewed. CBC and CMP unremarkable. Vitals/IOs Vital Signs Date Time Temp Pulse Resp B/P (MAP) Pulse Ox O2 Delivery O2 Flow Rate FiO2 09/06/17 06:11 97.8 70 16 107/56 (73) 97 Intake and Output 09/06/17 09/06/17 09/07/17 08:00 16:00 00:00 Intake Total 0 ml Balance 0 ml Assessment & Plan Problem List: (1) Primary degenerative dementia of the Alzheimer type, presenile onset ICD Codes: G30.0 - Alzheimer's disease with early onset; F02.80 - Dementia in other diseases classified elsewhere without behavioral disturbance Assessment & Plan Continue current psychotropics as ordered. Continue to monitor on the inpatient unit. Continue other medications and care as ordered. Justification for Cont. Inpt. Impairment in self-care. Impairment in reality construction as a consequence of dementia. High risk for decompensation in less restrictive environment. Discharge Planning Placement pending identification of the payer source. I have left a voicemail with the counselor to discuss the patient's discharge plan. Request HC Surrog/Guard Advoc?: Yes Problem Qualifiers (1) Primary degenerative dementia of the Alzheimer type, presenile onset: Qualified Codes: G30.0 - Alzheimer's disease with early onset; F02.81 - Dementia in other diseases classified elsewhere with behavioral disturbance Reinaldo Guadalupe MD Sep 06, 2017 10:58
[2017-09-06 11:04] LABS: AUTOMATED NEUTROPHIL # 4.8 TH/MM3 (1.8-7.7); BASOPHIL % 0.6 % (0.0-2.0); EOSINOPHIL # 0.1 TH/MM3 (0-0.4); EOSINOPHIL % 1.8 % (0.0-4.0); HEMATOCRIT 46.3 % (39.0-51.0); HEMO FLAGS DIFF FINAL; LYMPH % 17.8 % (9.0-44.0); LYMPHOCYTE # 1.2 TH/MM3 (1.0-4.8); MEAN CELL VOLUME 91.5 FL (80.0-100.0); MEAN CORPUSCULAR HEMOGLOBIN 30.3 PG (27.0-34.0); MEAN CORPUSCULAR HGB CONC 33.1 % (32.0-36.0); MONO % 10.1 % (0.0-8.0); NEUT % 69.7 % (16.0-70.0); PLATELET COUNT 349 TH/MM3 (150-450); RED BLOOD COUNT 5.06 MIL/MM3 (4.50-5.90); RED CELL DISTRIBUTION WIDTH 13.3 % (11.6-17.2); WHITE BLOOD COUNT 6.8 TH/MM3 (4.0-11.0)
[2017-09-06 11:26] LABS: ALT (GPT) 32 U/L (12-78); ANION GAP 5 MEQ/L (5-15); AST (GOT) 19 U/L (15-37); BICARBONATE 27.3 MEQ/L (21.0-32.0); BLOOD UREA NITROGEN 19 MG/DL (7-18); CHLORIDE 106 MEQ/L (98-107); GLOMERULAR FILTRATION RATE 115 ML/MIN (>89); POTASSIUM 3.7 MEQ/L (3.5-5.1); SODIUM (NA) 138 MEQ/L (136-145)
[2017-09-06 11:28] LABS: ALKALINE PHOSPHATASE 92 U/L (45-117); TOTAL BILIRUBIN ADULT 0.9 MG/DL (0.2-1.0)
[2017-09-06] MEDS: ARIPiprazole 5 MG TAB PO SCH (16:42)
[2017-09-06 18:07] VITALS: BP 92/52; PULSE 95; RESP 18; TEMP 98; O2SAT 96
[2017-09-06] MEDS: traZODone HCL 50 MG TAB PO SCH (20:44)
[2017-09-06] MEDS: diphenhydrAMINE HCL 50 MG CAP - HS PRN PO (20:44)
[2017-09-07] MEDS: LORazepam 1 MG TAB PO PRN (02:39)
[2017-09-07] MEDS: HALOPERIDOL 2 MG TAB PO PRN (02:39)
[2017-09-07 06:44] VITALS: BP 108/56; PULSE 71; RESP 18; TEMP 97.7
[2017-09-07] MEDS: ARIPiprazole 10 MG TAB PO SCH (08:54)
[2017-09-07] MEDS: BENZTROPINE MESYLATE 1 MG TAB PO SCH (08:54)
[2017-09-07] MEDS ORDERED: ARIP1TAB12 PO (13:42)
[2017-09-07] MEDS ORDERED: Benztropine PO (13:42)
[2017-09-07] MEDS ORDERED: TRAZ50TA12 PO (13:42)
[2017-09-07] MEDS ORDERED: ARIP1TAB11 PO (13:42)
[2017-09-07] MEDS ORDERED: LORA-474 PO (13:42)
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
[2017-09-07] MEDS: ARIPiprazole 5 MG TAB PO SCH (16:00)
== END 2017-09-07 18:45 | DRG 57 ==
LOC: H270 07-18 01:00 → H260 07-29 10:00 → H270 08-01 19:31 → H250 08-02 15:36
PROVIDERS: ADMIT Psychiatry & Neurology Psychiatry; ATTEND Psychiatry & Neurology Psychiatry
PROC: 009U3ZX Drainage of Spinal Canal, Percutaneous Approach, Diagnostic (ICD-10-PCS; principal; 2017-08-09)
DX: G30.0 Alzheimer's disease with early onset (principal); F02.81 Dementia in other diseases classified elsewhere, unspecified severity, with behavioral disturbance; R44.0 Auditory hallucinations; R15.9 Full incontinence of feces; R44.1 Visual hallucinations; R32 Unspecified urinary incontinence; R25.1 Tremor, unspecified; G97.1 Other reaction to spinal and lumbar puncture; R53.83 Other fatigue; M54.2 Cervicalgia; W07.XXXA Fall from chair, initial encounter; Y92.239 Unspecified place in hospital as the place of occurrence of the external cause
CPT/HCPCS: 62270; 70450; 70551; 72040; 77003; 80048; 80053; 80061; 81001; 82040; 82042; 82140; 82607; 82784; 82945; 83036; 84157; 84443; 85025; 85610; 85652; 85730; 86038; 86403; 86592; 86703; 87070; 87102; 87205; 87206; 87328; 87329; 87801; 89051; 93005; 95819; J0515; J1200; J1630; J2060; Q0163

== ENCOUNTER 2018-08-10 06:26 | Inpatient (IN) ==
[2018-08-10] MEDS ORDERED: Pantoprazole Inj 80 MG in Sodium Chlor 0.9% Inj 35 ML IV.SIG ONE (06:32)
--- NOTE | 2018-08-10 06:59 | ED ---
HPI General Chief complaint: Nausea/Vomiting/Diarrhea Stated complaint: confusion Time Seen by Provider: 08/10/18 06:32 Source: EMS, old records reviewed (SD) and other Mode of arrival: EMS Limitations: altered mental status History of Present Illness HPI Narrative: 58-year-old male with history of hypertension dementia depression constipation chronic essential tremor and cerebral vascular disease who is a [facility] hospice patient DNR and DO NOT INTUBATE resents to the emergency department by EMS transport from [facility] for evaluation of distended rigid abdomen a large volume of brown emesis just prior to arrival to the emergency room. According to the [facility] paperwork in the [facility] staff patient had been well approximate hour prior to the large episode of emesis had had a bowel movement yesterday is treated chronically for constipation and had not appeared to be overly constipated. No prior history of vomiting and no fever. [facility] was notified and will be sending a nurse. Patient is unable to provide any history. Caregivers/power of downstairs maid reportedly was contact MD complaint: vomiting and abdominal pain Onset (ago): hour(s) Description of Vomiting: coffee grounds and feculent Description of Diarrhea: none Associated Abdominal Pain: Yes Location of pain: diffuse Severity: similar to previous episodes (unknown) Related Data Home Medications Medication Instructions Recorded Confirmed amitriptyline 50 mg PO HS 08/10/18 08/10/18 aripiprazole [Abilify] 5 mg PO DAILY 08/10/18 08/10/18 bisacodyl 10 mg MO DAILY 08/10/18 08/10/18 furosemide [Lasix] 20 mg PO BID 08/10/18 08/10/18 lorazepam [Ativan] 0.5 mg PO TID 08/10/18 08/10/18 lorazepam [Ativan] 1 mg PO PRN PRN 08/10/18 08/10/18 magnesium hydroxide [Milk of 30 ml PO DAILY PRN 08/10/18 08/10/18 Magnesia] potassium chloride 20 meq PO DAILY 08/10/18 08/10/18 quetiapine [Seroquel] 50 mg PO BID 08/10/18 08/10/18 sertraline [Zoloft] 200 mg PO DAILY 08/10/18 08/10/18 spironolactone [Aldactone] 25 mg PO BID 08/10/18 08/10/18 valproic acid (as sodium salt) 250 mg PO HS 08/10/18 08/10/18 Allergies Allergy/AdvReac Type Severity Reaction Status Date / Time No Known Allergies Allergy Severe Verified 07/16/17 19:58 Review of Systems ROS Unobtainable ROS Unobtainable: unobtainable due to mental condition PMFSH History History Provided By: Medical Record (NH, VITAS: cerebral atherosclerotic disease Alzheimer's schizophrenia tremor dementia depression constipation) Medical History Medical History Medical history unknown (Acute) Surgical history unknown (Acute) Social History Social History Substance History: No History of Abuse Smoking Status: Unknown if ever smoked How Often Do You Have a Drink Containing Alcohol: Never Recent Travel in [place] within the Last 8 Weeks: No Recent Out of Country Travel within the Last 8 Weeks: No Immunization History Tetanus Immunization: >5 Years Hx Influenza Vaccine This Season: Yes Exam Narrative Exam Narrative: GENERAL: Well-nourished, well-developed patient. GCS: V4, V1, M4 (reportedly at his baseline) SKIN: Focused skin assessment warm/dry. HEAD: Normocephalic. EYES: No scleral icterus. No injection or drainage. NECK: Supple, trachea midline. No JVD or lymphadenopathy. CARDIOVASCULAR: Regular rate and rhythm without murmurs, gallops, or rubs. RESPIRATORY: Breath sounds equal bilaterally. No accessory muscle use. GASTROINTESTINAL: Abdomen distended, tender with guarding. MUSCULOSKELETAL: No cyanosis, or edema. By bilateral radial and dorsalis pedis pulses 2+ to palpation BACK: Nontender without obvious deformity. No CVA tenderness. Procedures Rectal Disimpaction Time Out Performed: Yes Indication: fecal impaction Procedural Sedation: No Sedation/Analgesia: none Technique: manual disimpaction with gloved finger Result: significant stool output Patient Tolerated Procedure: well Complications: pain Additional Comments: I was able to disimpact a significant amount of stool - I could not fully disimpact patient as he is very uncomfortable during this procedure. I was able to break up the large clumps of hard stool with my fingers during the disimpaction, I was careful not to cause injury to patient. Course Initial Documented Vital Signs Temperature 97.7 F 08/10/18 06:30 Pulse Rate 98 H 08/10/18 06:30 Respiratory Rate 18 08/10/18 06:30 Blood Pressure 136/101 H 08/10/18 06:30 Pulse Oximetry 95 08/10/18 06:30 Last Documented Vital Signs Temperature 97.7 F 08/10/18 06:30 Pulse Rate 90 08/10/18 11:00 Respiratory Rate 17 08/10/18 11:00 Blood Pressure 118/94 H 08/10/18 11:00 Pulse Oximetry 96 08/10/18 11:00 Sign Out Sign Out Data: Patient Sign Out occurred on 08/10/18 at 07:56. Patient's care was discussed, and care was transferred from Maryam Bender MD to Lupis Loya. Sign Out Comment: 58-year-old male patient from [facility] with vomiting large amount of stomach contents described as brown versus coffee-ground with history of constipation; presents with distended abdomen; patient is a hospice patient and hospice nurse is coming to the emergency room to assess patient as well. Reportedly family members have been contacted. Follow-up on pending labs imaging study and disposition. Last updated by Maryam Bender MD at 08/10/18 07:16 Post-Handoff Eval: Received patient in signout, patient currently pending lab work as well as a CT of the abdomen and pelvis. Patient with a distended abdomen, NGT was placed and patient had over 500ml's of fluid output Labs reviewed, patient with a white blood cell count of 19.9, hemoglobin of 13.1 , hematocrit of 30.8, platelets of 220 Lactic acid is 2.4 CT of abdomen and pelvis shows dilation of both the large and small bowel with air-fluid levels and a large bolus of stool in the rectum with impaction. I was able to disimpact quite a large amount of stool, he was not tolerant of the procedure so I could not completely evacuate the rectal vault of all the stool Plan to admit patient to the hospital for serial abdominal exams Medical Decision Making MDM Narrative Medical decision making narrative: 58-year-old male presents from [facility] with known history of Alzheimer's dementia schizophrenia hypertension chronic constipation tremor and cerebral atherosclerotic disease presents after witnessed large volume of brown emesis coffee-ground versus feculent as [facility] unable to detect. Patient is a hospice patient with VITAS is a DO NOT RESUSCITATE DO NOT INTUBATE patient, according to Vitas nurse family member/POA has been called. Patient placed on cardiac cath lab radiology technologist IV access obtained specimens collected and sent for resulting patient given bolus of normal saline Protonix bolus with infusion specimens collected and sent for resulting EKG shows sinus rhythm with no acute ST elevation Care signed over to oncoming physician Dr Rogers Case reviewed with Dr. Ramirez who accepts pt to service Medical Screen Exam Complete: Yes Emergency Medical Condition: Yes Differential Diagnosis Differential Diagnosis: Upper GI bleed, gastritis, perforated viscus, bowel obstruction, sepsis Medical Records Medical records reviewed: Yes I reviewed the patient's medical records. Lab Data Result diagrams: 08/10/18 09:15 08/10/18 06:30 Lab Results 08/10/18 08/10/18 08/10/18 Range/Units 06:30 06:30 06:30 WBC (4.0-11.0) th/mm3 RBC (4.50-5.90) mil/mm3 Hgb (13.0-17.0) gm/dL Hct (39.0-51.0) % MCV (80.0-100.0) fL MCH (27.0-34.0) pg MCHC (32.0-36.0) % RDW (11.6-17.2) % Plt Count (150-450) th/mm3 MPV (7.0-11.0) fL Neut % (Auto) (16.0-70.0) % Lymph % (Auto) (9.0-44.0) % Pettis % (Auto) (0.0-8.0) % Eos % (Auto) (0.0-4.0) % Baso % (Auto) (0.0-2.0) % Neut # (Auto) (1.8-7.7) th/mm3 Lymph # (Auto) (1.0-4.8) th/mm3 Pettis # (Auto) (0.0-0.9) th/mm3 Eos # (Auto) (0.0-0.4) th/mm3 Baso # (Auto) (0.0-0.2) th/mm3 WBC Differential Differential Comment PT 12.2 H (9.8-11.6) sec INR 1.2 Ratio APTT 25.4 (24.3-30.1) sec Sodium 140 (136-145) meq/L Potassium 3.7 (3.5-5.1) meq/L Chloride 102 (98-107) meq/L Carbon Dioxide 27.3 (21.0-32.0) meq/L Anion Gap 11 (5-15) meq/L BUN 32 H (7-18) mg/dL Creatinine 1.00 (0.60-1.30) mg/dL Estimated GFR 76 L (>89) mL/min Random Glucose 137 H (74-106) mg/dL Lactic Acid (0.4-2.0) mmol/L Calcium 8.7 (8.5-10.1) mg/dL Total Bilirubin 0.6 (0.2-1.0) mg/dL AST 29 (15-37) U/L ALT 35 (12-78) U/L Alkaline Phosphatase 87 (45-117) U/L Troponin I Less than 0.02 L (0.02-0.05) ng/mL Total Protein 8.2 (6.4-8.2) g/dL Albumin 3.9 (3.4-5.0) g/dL Lipase 90 (73-393) U/L Blood Type A Positive Blood Type Recheck Required Antibody Screen Negative 08/10/18 08/10/18 Range/Units 06:45 09:15 WBC 19.9 H (4.0-11.0) th/mm3 RBC 4.18 L (4.50-5.90) mil/mm3 Hgb 13.1 (13.0-17.0) gm/dL Hct 38.8 L (39.0-51.0) % MCV 92.7 (80.0-100.0) fL MCH 31.3 (27.0-34.0) pg MCHC 33.8 (32.0-36.0) % RDW 13.2 (11.6-17.2) % Plt Count 220 (150-450) th/mm3 MPV 12.0 H (7.0-11.0) fL Neut % (Auto) 91.9 H (16.0-70.0) % Lymph % (Auto) 2.2 L (9.0-44.0) % Pettis % (Auto) 5.7 (0.0-8.0) % Eos % (Auto) 0.0 (0.0-4.0) % Baso % (Auto) 0.2 (0.0-2.0) % Neut # (Auto) 18.3 H (1.8-7.7) th/mm3 Lymph # (Auto) 0.4 L (1.0-4.8) th/mm3 Pettis # (Auto) 1.1 H (0.0-0.9) th/mm3 Eos # (Auto) 0.0 (0.0-0.4) th/mm3 Baso # (Auto) 0.0 (0.0-0.2) th/mm3 WBC Differential . Differential Comment Auto diff final PT (9.8-11.6) sec INR Ratio APTT (24.3-30.1) sec Sodium (136-145) meq/L Potassium (3.5-5.1) meq/L Chloride (98-107) meq/L Carbon Dioxide (21.0-32.0) meq/L Anion Gap (5-15) meq/L BUN (7-18) mg/dL Creatinine (0.60-1.30) mg/dL Estimated GFR (>89) mL/min Random Glucose (74-106) mg/dL Lactic Acid 2.4 H (0.4-2.0) mmol/L Calcium (8.5-10.1) mg/dL Total Bilirubin (0.2-1.0) mg/dL AST (15-37) U/L ALT (12-78) U/L Alkaline Phosphatase (45-117) U/L Troponin I (0.02-0.05) ng/mL Total Protein (6.4-8.2) g/dL Albumin (3.4-5.0) g/dL Lipase (73-393) U/L Blood Type Blood Type Recheck Antibody Screen Imaging Data Radiologist's impression: Chest X-Ray 08/10/18 06:32 CONCLUSION: Minimal parenchymal changes left base otherwise negative Abdomen/Pelvis CT 08/10/18 07:16 CONCLUSION: 1. Dilatation of both large and small bowel with air-fluid levels in the large bolus of stool in rectum consistent with impaction. 2. There is no free air ECG Data EKG Prior to Arrival: No Interpretation: EKG: Sinus rhythm marked artifact at baseline no acute ST elevation Discharge Plan Discharge Disposition Patient Disposition: 30 Still Patient Discharge Condition Condition: Fair Discharge Details Diagnosis: Fecal impaction Physicians Team ED Provider: Lupis Loya Primary Care Provider: Troy Call Attending Provider: Rolf Gordon Other Providers: Dhaval Cortés ; Min Balderas Status ED Status: Admitted Observation Patient
[2018-08-10] MEDS ORDERED: Piperacil/Tazo 4.5 GM Premix 4.5 GM/100 ML BAG IV.SIG ONE (07:09)
--- NOTE | 2018-08-10 07:14 | XR ---
EXAM DATE: 08/10/2018 6:48 AM EDT AGE/SEX: 58 years / Male INDICATIONS: Altered mental status, dementia. CLINICAL DATA: This is the patient's initial encounter. Patient reports that signs and symptoms have been present for 1 day and indicates a pain score of Nonresponsive. MEDICAL/SURGICAL HISTORY: Dementia. Non-responsive. COMPARISON: No prior exams available for comparison. FINDINGS: A single AP view of the chest demonstrates the lungs to be symmetrically. Minimal parenchymal changes left base. The cardiomediastinal contours are unremarkable. Osseous structures are intact. CONCLUSION: Minimal parenchymal changes left base otherwise negative Electronically signed by: Marcello Scales MD 08/10/2018 7:13 AM EDT
[2018-08-10] MEDS ORDERED: Sod Chloride 0.9% Inj 1,000 ML IV.SIG SCH (07:15)
[2018-08-10 07:18] LABS: Activated Partial Thrombo Time 25.4 sec (24.3-30.1); INR 1.2 Ratio; Prothrombin Time 12.2 sec (9.8-11.6)
[2018-08-10 07:57] LABS: Alanine Aminotransferase 35 U/L (12-78); Albumin 3.9 g/dL (3.4-5.0); Anion Gap 11 meq/L (5-15); Aspartate Aminotransferase 29 U/L (15-37); Blood Urea Nitrogen 32 mg/dL (7-18); Calcium 8.7 mg/dL (8.5-10.1); Carbon Dioxide 27.3 meq/L (21.0-32.0); Chloride 102 meq/L (98-107); Glomerular Filtration Rate 76 mL/min (>89); Glucose,Random 137 mg/dL (74-106); Lipase 90 U/L (73-393); Potassium 3.7 meq/L (3.5-5.1); Sodium 140 meq/L (136-145)
[2018-08-10 08:02] LABS: Alkaline Phosphatase 87 U/L (45-117); Total Protein 8.2 g/dL (6.4-8.2)
[2018-08-10 10:36] LABS: Baso % (Auto) 0.2 % (0.0-2.0); Hematocrit 38.8 % (39.0-51.0); Hemoglobin 13.1 gm/dL (13.0-17.0); Lymph # (Auto) 0.4 th/mm3 (1.0-4.8); Lymph % (Auto) 2.2 % (9.0-44.0); Mean Corpuscular HGB Conc 33.8 % (32.0-36.0); Mean Corpuscular Hemoglobin 31.3 pg (27.0-34.0); Mean Corpuscular Volume 92.7 fL (80.0-100.0); Mono # (Auto) 1.1 th/mm3 (0.0-0.9); Mono % (Auto) 5.7 % (0.0-8.0); Neut # (Auto) 18.3 th/mm3 (1.8-7.7); Neut % (Auto) 91.9 % (16.0-70.0); Platelet Count 220 th/mm3 (150-450); Red Blood Count 4.18 mil/mm3 (4.50-5.90); Red Cell Distribution Width 13.2 % (11.6-17.2); White Blood Count 19.9 th/mm3 (4.0-11.0)
--- NOTE | 2018-08-10 10:46 | CT ---
EXAM DATE: 08/10/2018 10:34 AM EDT AGE/SEX: 58 years / Male INDICATIONS: Abdominal distention, vomiting and constipation. CLINICAL DATA: This is the patient's initial encounter. Patient reports that signs and symptoms have been present for 1 day and indicates a pain score of 7/10. MEDICAL/SURGICAL HISTORY: Hypertension. Dementia. None. ORAL CONTRAST: No oral contrast ingested. RADIATION DOSE: 8.24 CTDI (mGy) COMPARISON: No prior exams available for comparison. TECHNIQUE: Multiple contiguous axial images were obtained through the abdomen and pelvis following b olus infusion of 100 ml Omnipaque 350 (iohexol) nonionic water-soluble contrast as a single exam do se. No oral contrast ingested. Using automated exposure control and adjustment of the mA and/or kV a ccording to patient size, radiation dose was kept as low as reasonably achievable to obtain optimal d iagnostic quality images. DICOM format image data is available electronically for review and compari son. FINDINGS: Lower lungs are clear. Liver and gallbladder are unremarkable . Pancreas and spleen appear normal Nasogastric tube is across the GE junction with marked dilatation of the colon with air-fluid levels in both large and small bowel with solid stool present in the rectum consistent with an impaction. There is no free air identified There is symmetrical renal function On atherosclerotic vascular calcifications are evident Pelvic contents are unremarkable only for large bolus of stool. CONCLUSION: 1. Dilatation of both large and small bowel with air-fluid levels in the large bolus of stool in rec jacquelin consistent with impaction. 2. There is no free air Electronically signed by: Marcello Scales MD 08/10/2018 10:45 AM EDT
--- NOTE | 2018-08-10 13:33 | P.HPIM ---
History of Present Illness Primary Care Physician: Troy Call Chief Complaint: Foul smelling emesis History of Present Illness: This patient is a 58-year-old male with a diagnosis of hypertension, dementia, depression, constipation, chronic essential tremor, history of CVA who appears to be from [facility]. The patient is DNR and DNI. He was brought into our emergency department today because he was having foul- smelling emesis and has a distended abdomen. The patient is severely demented and is unable to give any history. As per documentation the patient had a large episode of foul-smelling emesis today and had a bowel movement yesterday. I was unable to obtain any further history. Because of the patient's multiple medical problems the medicine team was called to admit the patient. Past medical history hypertension, dementia, depression, constipation, chronic essential tremor, history of CVA unclear if it is ischemic or hemorrhagic. Family history unable to obtain Surgical history unable to obtain Social history unable to obtain Review of Systems unobtainable due to mental condition PMFSH - History History Provided By: Medical Record (NH, VITAS: cerebral atherosclerotic disease Alzheimer's schizophrenia tremor dementia depression constipation) - Medical History Medical History: Medical History (Last Updated 08/10/18 @ 06:35 by Asif Calero) Medical history unknown Surgical history unknown - Tobacco History Smoking Status: Unknown if ever smoked - Alcohol History How Often Do You Have a Drink Containing Alcohol: Never - Substance Use History Substance History: No History of Abuse - Travel History Recent Travel in the [place] Within the Last 8 Weeks: No Recent Travel Out of the Country Within the Last 8 Weeks: No - Immunization History Tetanus Immunization: >5 Years Hx Influenza Vaccine This Season: Yes Medications and Allergies Active Medications: Active Medications Pantoprazole Sodium 80 mg/ (Sodium Chloride) 100 mls @ 10 mls/hr IV.CONT CONT ANDREW Sodium Chloride (Ns Inj) 1,000 mls @ 0 mls/hr IV.SIG BOLUS ANDREW Sodium Chloride (Ns Inj) 1,000 mls @ 100 mls/hr IV.CONT .Q10H ANDREW Piperacillin/Tazobactam/Dextrose (Zosyn 3.375 Gm Premix) 50 mls @ 100 mls/hr IV.SIG Q6H ANDREW Sodium Chloride (Ns Flush) 2 ml IV.FLUSH PRN PRN PRN Reason: FLUSH AFTER USING IV ACCESS Allergies Allergy/AdvReac Type Severity Reaction Status Date / Time No Known Allergies Allergy Severe Verified 07/16/17 19:58 Home Medications Medication Instructions Recorded Confirmed Type amitriptyline 50 mg PO HS 08/10/18 08/10/18 History aripiprazole [Abilify] 5 mg PO DAILY 08/10/18 08/10/18 History bisacodyl 10 mg NC DAILY 08/10/18 08/10/18 History furosemide [Lasix] 20 mg PO BID 08/10/18 08/10/18 History lorazepam [Ativan] 0.5 mg PO TID 08/10/18 08/10/18 History lorazepam [Ativan] 1 mg PO PRN PRN 08/10/18 08/10/18 History magnesium hydroxide [Milk of 30 ml PO DAILY PRN 08/10/18 08/10/18 History Magnesia] potassium chloride 20 meq PO DAILY 08/10/18 08/10/18 History quetiapine [Seroquel] 50 mg PO BID 08/10/18 08/10/18 History sertraline [Zoloft] 200 mg PO DAILY 08/10/18 08/10/18 History spironolactone [Aldactone] 25 mg PO BID 08/10/18 08/10/18 History valproic acid (as sodium salt) 250 mg PO HS 08/10/18 08/10/18 History Exam Vital signs: Vital Signs 08/10/18 06:30 08/10/18 06:51 08/10/18 07:18 Temperature 97.7 F Pulse Rate 98 H 98 H Respiratory Rate 18 18 Blood Pressure 136/101 H 136/101 H Pulse Oximetry 95 96 08/10/18 07:20 08/10/18 10:14 08/10/18 11:00 Temperature Pulse Rate 90 90 Respiratory Rate 14 17 Blood Pressure 133/89 118/94 H Pulse Oximetry 96 93 L 96 Intake & Output 08/09/18 08/10/18 08/10/18 18:59 06:59 18:59 Intake Total 135 / 135 Output Total 550 / 550 Balance -415 / -415 Weight 74.843 kg Intake: IV 135 / 135 Protonix Inj 80 MG In NS Inj 35 35 / 35 ML @ 420 mls/hr IV.SIG BOLUS ONE Rx#:[id number] Zosyn 4.5 GM Premix 4.5 gm In 100 / 100 100 ml @ 200 mls/hr IV.SIG ONCE ONE Rx#:[id number] Output: Gastric Drainage 550 / 550 Right Nare Nasogastric Tube 550 / 550 Narrative: General patient appears to be mildly agitated. He is responsive to my questions however I am unable to understand anything the patient says. HEENT extraocular movements are intact, very poor dentition, NG tube in place with brown colored fluid coming from the NG tube Cardiovascular S1-S2 audible, RRR, no murmurs rubs or gallops Respiratory clear to auscultation bilaterally Abdomen mildly distended abdomen, bowel sounds present, patient does appear to grimace on palpation of the abdomen. Extremities patient does move all of his extremities. He is cachectic. Distal pulses palpable. Neuro patient does not respond to my questions appropriately. He is very difficult to understand. He does move his extremities minimally. He is not following commands appropriately. The patient is severely demented, full neurological examination is difficult to assess. Results - Labs CBC & Chem 7: 08/10/18 09:15 08/10/18 06:30 Labs: Short CBC 08/10/18 Range/Units 09:15 WBC 19.9 H (4.0-11.0) th/mm3 Hgb 13.1 (13.0-17.0) gm/dL Hct 38.8 L (39.0-51.0) % Plt Count 220 (150-450) th/mm3 BMP 08/10/18 06:30 Sodium 140 Potassium 3.7 Chloride 102 Carbon Dioxide 27.3 BUN 32 H Creatinine 1.00 Calcium 8.7 Cardiac Enzymes 08/10/18 Range/Units 06:30 Troponin I Less than 0.02 L (0.02-0.05) ng/mL Liver Function 08/10/18 Range/Units 06:30 Total Bilirubin 0.6 (0.2-1.0) mg/dL AST 29 (15-37) U/L ALT 35 (12-78) U/L Alkaline Phosphatase 87 (45-117) U/L Albumin 3.9 (3.4-5.0) g/dL - Imaging Impressions Chest X-Ray 08/10/18 06:32 CONCLUSION: Minimal parenchymal changes left base otherwise negative Abdomen/Pelvis CT 08/10/18 07:16 CONCLUSION: 1. Dilatation of both large and small bowel with air-fluid levels in the large bolus of stool in rectum consistent with impaction. 2. There is no free air Caprini VTE Risk Assessment Caprini VTE Risk Assessment: Moderate/High Risk (score >= 2) Caprini Risk Assessment Model: Point Value = 1 Point Value = 2 Point Value = 3 Point Value = 5 Age 41-60 Minor surgery BMI > 25 kg/m2 Swollen legs Varicose veins or History of unexplained or recurrent spontaneous Oral contraceptives or hormone replacement Sepsis (< 1 month) Serious lung disease, including pneumonia (< 1 month) Abnormal pulmonary function Acute myocardial infarction Congestive heart failure (< 1 month) History of inflammatory bowel disease Medical patient at bed rest Age 61-74 Arthroscopic surgery Major open surgery (> 45 min) Laparoscopic surgery (> 45 min) Malignancy Confined to bed (> 72 hours) Immobilizing plaster cast Central venous access Age >= 75 History of VTE Family history of VTE Factor V Leiden Prothrombin [id number] Lupus anticoagulant Anticardiolipin antibodies Elevated serum homocysteine Heparin-induced thrombocytopenia Other congenital or acquired thrombophilia Stroke (< 1 month) Elective arthroplasty Hip, pelvis, or leg fracture Acute spinal cord injury (< 1 month) Prophylaxis Regimen: Total Risk Factor Score Risk Level Prophylaxis Regimen 0-1 Low Early ambulation 2 Moderate Order ONE of the following: *Sequential Compression Device (SCD) *Heparin 5000 units SQ BID 3-4 Higher Order ONE of the following medications: *Heparin 5000 units SQ TID *Enoxaparin/Lovenox 40 mg SQ daily (WT < 150 kg, CrCl > 30 mL/min) *Enoxaparin/Lovenox 30 mg SQ daily (WT < 150 kg, CrCl > 10-29 mL/min) *Enoxaparin/Lovenox 30 mg SQ BID (WT < 150 kg, CrCl > 30 mL/min) AND/OR *Sequential Compression Device (SCD) 5 or more Highest Order ONE of the following medications: *Heparin 5000 units SQ TID (Preferred with Epidurals) *Enoxaparin/Lovenox 40 mg SQ daily (WT < 150 kg, CrCl > 30 mL/min) *Enoxaparin/Lovenox 30 mg SQ daily (WT < 150 kg, CrCl > 10-29 mL/min) *Enoxaparin/Lovenox 30 mg SQ BID (WT < 150 kg, CrCl > 30 mL/min) AND *Sequential Compression Device (SCD) Assessment and Plan - Plan This patient is a 58-year-old male who was sent over from a [facility] with a past medical history mentioned above. The patient is severely demented and has known chronic constipation. He was sent because of a foul smelling emesis and a distended abdomen. In the emergency department he was evaluated and an NG tube was placed. A CT scan of the abdomen and pelvis was done which shows dilated small and large bowel. There is also stool impaction likely causing the patient's symptoms. 1. Small and large bowel obstruction 2. Systemic inflammatory response syndrome possibly secondary to intra- abdominal infection. NG tube is in place continue low wall suction. Strict n.p.o. Elevated WBC count, lactate elevated. We will continue IV fluids, IV antibiotics, lactate level will be monitored. A.m. CBC with differential and basic metabolic panel. Electrolytes will be replaced. Surgery consultation has been placed. The patient will need fecal disimpaction. 3. Hypertension The patient's blood pressure will be monitored. Currently we will keep strict n.p.o. IV blood pressure medications will be given if needed. 4. Dementia We will keep the patient n.p.o. for now. Continue current management. After the patient is disimpacted we will continue his home medications after discussion with the surgery team. No DVT prophylaxis for now until after evaluation by the surgical team.
--- NOTE | 2018-08-10 14:42 | ECG ---
Date Performed: 08/10/2018 Time Performed: 06:37:09 PTAGE: 58 years EKG: Sinus rhythm WITH SHORT TX INTERVAL LOW QRS VOLTAGE IN EXTREMITY LEADS INCOMPLETE RIGHT BUNDLE BRANCH BLOCK ST EL EVATION, CONSIDER INFERIOR INJURY ACUTE AK Since the PREVIOUS TRACING , no significant change noted PREVIOUS TRACIN07/18/2017 10.37 DOCTOR: Angelito Ledesma Interpretating Date/Time 08/10/2018 14:36:07
--- NOTE | 2018-08-10 15:26 | P.CONGI ---
History of Present Illness Consult date: 08/10/18 Consult reason: Large and small bowel obstruction Chief complaint: Fecal impaction, Constipation History of Present Illness: This is a frail 58-year-old male who was brought into the hospital on 07/21/2018 with some foul-smelling emesis and a distended abdomen. There is currently no family with patient so unknown onset of patient's distended abdomen or any nausea or vomiting currently patient's awake and randomly talking but has a significant history of dementia and a history of a CVA according to the record. Patient has an NG tube with copious amounts of dark coffee ground appearing emesis. Gastroccult checked during my visit and was positive. Patient's abdomen is talked tympanic with no bowel sounds. After patient was admitted to the hospital, he was disimpacted and had large hard formed brown stools and is now continuing to have incontinent stools at intervals. There is no obvious blood noted current hemoglobin 13.1 PT/INR 1.2, bilirubin and LFTs are normal, elevated WBC count CT was performed on 08/10/2018 which showed large and small bowel air-fluid levels, fecal impaction gallbladder and liver were unremarkable. Unknown family history or any GI history. Gastroenterology was consulted to assist with patient's symptoms and plan of care. <Makayla Troncoso - Last Filed: 08/10/18 15:39> Review of Systems All other systems reviewed negative except as stated in HPI <Makayla Troncoso - Last Filed: 08/10/18 15:39> PMFSH - History History Provided By: Medical Record (NH, VITAS: cerebral atherosclerotic disease Alzheimer's schizophrenia tremor dementia depression constipation) - Medical History Medical History: Medical History (Last Updated 08/10/18 @ 06:35 by Asif Calero) Medical history unknown Surgical history unknown - Tobacco History Smoking Status: Unknown if ever smoked - Alcohol History How Often Do You Have a Drink Containing Alcohol: Never - Substance Use History Substance History: No History of Abuse - Travel History Recent Travel in the [place] Within the Last 8 Weeks: No Recent Travel Out of the Country Within the Last 8 Weeks: No - Immunization History Tetanus Immunization: >5 Years Hx Influenza Vaccine This Season: Yes <Makayla Troncoso - Last Filed: 08/10/18 15:39> - Medical History Medical History: Medical History (Last Updated 08/10/18 @ 06:35 by Asif Calero) Medical history unknown Surgical history unknown <Min Balderas E - Last Filed: 08/11/18 00:16> Medications and Allergies Active Medications: Active Medications Pantoprazole Sodium 80 mg/ (Sodium Chloride) 100 mls @ 10 mls/hr IV.CONT CONT ANDREW Sodium Chloride (Ns Inj) 1,000 mls @ 0 mls/hr IV.SIG BOLUS ANDREW Sodium Chloride (Ns Inj) 1,000 mls @ 100 mls/hr IV.CONT .Q10H ANDREW Piperacillin/Tazobactam/Dextrose (Zosyn 3.375 Gm Premix) 50 mls @ 100 mls/hr IV.SIG Q6H ANDREW Sodium Chloride (Ns Flush) 2 ml IV.FLUSH PRN PRN PRN Reason: FLUSH AFTER USING IV ACCESS <Makayla Troncoso M - Last Filed: 08/10/18 15:39> Active Medications: Active Medications Pantoprazole Sodium 80 mg/ (Sodium Chloride) 100 mls @ 10 mls/hr IV.CONT CONT ANDREW Sodium Chloride (Ns Inj) 1,000 mls @ 0 mls/hr IV.SIG BOLUS ANDREW Sodium Chloride (Ns Inj) 1,000 mls @ 100 mls/hr IV.CONT .Q10H ANDREW Last Admin: 08/10/18 15:38 Dose: 100 mls/hr Piperacillin/Tazobactam/Dextrose (Zosyn 3.375 Gm Premix) 50 mls @ 100 mls/hr IV.SIG Q6H ANDREW Last Infusion: 08/10/18 23:19 Dose: 100 mls/hr Sodium Chloride (Ns Flush) 2 ml IV.FLUSH PRN PRN PRN Reason: FLUSH AFTER USING IV ACCESS <Min Balderas E - Last Filed: 08/11/18 00:16> Allergies Allergy/AdvReac Type Severity Reaction Status Date / Time No Known Allergies Allergy Severe Verified 07/16/17 19:58 Home Medications Medication Instructions Recorded Confirmed Type amitriptyline 50 mg PO HS 08/10/18 08/10/18 History aripiprazole [Abilify] 5 mg PO DAILY 08/10/18 08/10/18 History bisacodyl 10 mg MN DAILY 08/10/18 08/10/18 History furosemide [Lasix] 20 mg PO BID 08/10/18 08/10/18 History lorazepam [Ativan] 0.5 mg PO TID 08/10/18 08/10/18 History lorazepam [Ativan] 1 mg PO PRN PRN 08/10/18 08/10/18 History magnesium hydroxide [Milk of 30 ml PO DAILY PRN 08/10/18 08/10/18 History Magnesia] potassium chloride 20 meq PO DAILY 08/10/18 08/10/18 History quetiapine [Seroquel] 50 mg PO BID 08/10/18 08/10/18 History sertraline [Zoloft] 200 mg PO DAILY 08/10/18 08/10/18 History spironolactone [Aldactone] 25 mg PO BID 08/10/18 08/10/18 History valproic acid (as sodium salt) 250 mg PO HS 08/10/18 08/10/18 History Exam Vital signs: Vital Signs 08/10/18 06:30 08/10/18 06:51 08/10/18 07:18 Temperature 97.7 F Pulse Rate 98 H 98 H Respiratory Rate 18 18 Blood Pressure 136/101 H 136/101 H Pulse Oximetry 95 96 08/10/18 07:20 08/10/18 10:14 08/10/18 11:00 Temperature Pulse Rate 90 90 Respiratory Rate 14 17 Blood Pressure 133/89 118/94 H Pulse Oximetry 96 93 L 96 Intake & Output 08/09/18 08/10/18 08/10/18 18:59 06:59 18:59 Intake Total 135 / 135 Output Total 550 / 550 Balance -415 / -415 Weight 74.843 kg Intake: IV 135 / 135 Protonix Inj 80 MG In NS Inj 35 35 / 35 ML @ 420 mls/hr IV.SIG BOLUS ONE Rx#:[id number] Zosyn 4.5 GM Premix 4.5 gm In 100 / 100 100 ml @ 200 mls/hr IV.SIG ONCE ONE Rx#:[id number] Output: Gastric Drainage 550 / 550 Right Nare Nasogastric Tube 550 / 550 - Constitutional mild distress, thin, cachectic, disheveled - Routine HEENT Exam ENT: Present: mucous membranes moist - Routine Respiratory Exam Present: accessory muscle use (No obvious shortness of breath or wheezing or rhonchi) - Routine Cardiovascular Exam Present: S1, S2, murmur (Soft) - Routine Abdominal Exam Present: distended (Mild to moderate distention with tympany, no obvious bowel sounds, NG tube connected to low intermittent suction with dark coffee ground appearing emesis, greater than 1000 cc output since ER admission) <Makayla Troncoso M - Last Filed: 08/10/18 15:39> Vital signs: Vital Signs 08/10/18 06:30 08/10/18 06:51 08/10/18 07:18 Temperature 97.7 F Pulse Rate 98 H 98 H Respiratory Rate 18 18 Blood Pressure 136/101 H 136/101 H Pulse Oximetry 95 96 08/10/18 07:20 08/10/18 10:14 08/10/18 11:00 Temperature Pulse Rate 90 90 Respiratory Rate 14 17 Blood Pressure 133/89 118/94 H Pulse Oximetry 96 93 L 96 08/10/18 13:00 08/10/18 15:07 08/10/18 19:31 Temperature Pulse Rate 90 92 H 92 H Respiratory Rate 20 14 Blood Pressure 126/82 118/86 Pulse Oximetry 99 96 08/10/18 20:00 08/11/18 00:00 Temperature 98.5 F 98.5 F Pulse Rate 83 80 Respiratory Rate 18 20 Blood Pressure 115/72 101/75 Pulse Oximetry 97 91 L Intake & Output 08/10/18 08/10/18 08/11/18 06:59 18:59 06:59 Intake Total 135 / 135 0 / 0 Output Total 550 / 550 Balance -415 / -415 0 / 0 Weight 74.843 kg Intake: IV 135 / 135 0 / 0 Protonix Inj 80 MG In NS Inj 35 35 / 35 ML @ 420 mls/hr IV.SIG BOLUS ONE Rx#:[id number] Zosyn 3.375 GM Premix 50 ML @ 0 / 0 100 mls/hr IV.SIG Q6H ANDREW Rx#: [id number] Zosyn 4.5 GM Premix 4.5 gm In 100 / 100 100 ml @ 200 mls/hr IV.SIG ONCE ONE Rx#:[id number] Output: Gastric Drainage 550 / 550 Right Nare Nasogastric Tube 550 / 550 <Min Balderas - Last Filed: 08/11/18 00:16> Results - Labs CBC & Chem 7: 08/10/18 09:15 08/10/18 06:30 Labs: Laboratory Results - last 24 hr 08/10/18 08/10/18 08/10/18 06:30 06:30 06:30 WBC RBC Hgb Hct MCV MCH MCHC RDW Plt Count MPV Neut % (Auto) Lymph % (Auto) Roberts % (Auto) Eos % (Auto) Baso % (Auto) Neut # (Auto) Lymph # (Auto) Roberts # (Auto) Eos # (Auto) Baso # (Auto) WBC Differential Differential Comment PT 12.2 H INR 1.2 APTT 25.4 Sodium 140 Potassium 3.7 Chloride 102 Carbon Dioxide 27.3 Anion Gap 11 BUN 32 H Creatinine 1.00 Estimated GFR 76 L Random Glucose 137 H Lactic Acid Calcium 8.7 Total Bilirubin 0.6 AST 29 ALT 35 Alkaline Phosphatase 87 Troponin I Less than 0.02 L Total Protein 8.2 Albumin 3.9 Lipase 90 Blood Type A Positive Blood Type Recheck Required Antibody Screen Negative 08/10/18 08/10/18 06:45 09:15 WBC 19.9 H RBC 4.18 L Hgb 13.1 Hct 38.8 L MCV 92.7 MCH 31.3 MCHC 33.8 RDW 13.2 Plt Count 220 MPV 12.0 H Neut % (Auto) 91.9 H Lymph % (Auto) 2.2 L Roberts % (Auto) 5.7 Eos % (Auto) 0.0 Baso % (Auto) 0.2 Neut # (Auto) 18.3 H Lymph # (Auto) 0.4 L Roberts # (Auto) 1.1 H Eos # (Auto) 0.0 Baso # (Auto) 0.0 WBC Differential . Differential Comment Auto diff final PT INR APTT Sodium Potassium Chloride Carbon Dioxide Anion Gap BUN Creatinine Estimated GFR Random Glucose Lactic Acid 2.4 H Calcium Total Bilirubin AST ALT Alkaline Phosphatase Troponin I Total Protein Albumin Lipase Blood Type Blood Type Recheck Antibody Screen - Imaging Impressions Chest X-Ray 08/10/18 06:32 CONCLUSION: Minimal parenchymal changes left base otherwise negative Abdomen/Pelvis CT 08/10/18 07:16 CONCLUSION: 1. Dilatation of both large and small bowel with air-fluid levels in the large bolus of stool in rectum consistent with impaction. 2. There is no free air <Makayla Troncoso - Last Filed: 08/10/18 15:39> - Labs CBC & Chem 7: 08/10/18 09:15 08/10/18 06:30 Labs: Laboratory Results - last 24 hr 08/10/18 08/10/18 08/10/18 06:30 06:30 06:30 WBC RBC Hgb Hct MCV MCH MCHC RDW Plt Count MPV Neut % (Auto) Lymph % (Auto) Roberts % (Auto) Eos % (Auto) Baso % (Auto) Neut # (Auto) Lymph # (Auto) Roberts # (Auto) Eos # (Auto) Baso # (Auto) WBC Differential Differential Comment PT 12.2 H INR 1.2 APTT 25.4 Sodium 140 Potassium 3.7 Chloride 102 Carbon Dioxide 27.3 Anion Gap 11 BUN 32 H Creatinine 1.00 Estimated GFR 76 L Random Glucose 137 H Lactic Acid Calcium 8.7 Total Bilirubin 0.6 AST 29 ALT 35 Alkaline Phosphatase 87 Troponin I Less than 0.02 L Total Protein 8.2 Albumin 3.9 Lipase 90 Blood Type A Positive Blood Type Recheck Required Antibody Screen Negative 08/10/18 08/10/18 08/10/18 06:45 09:15 22:15 WBC 19.9 H RBC 4.18 L Hgb 13.1 Hct 38.8 L MCV 92.7 MCH 31.3 MCHC 33.8 RDW 13.2 Plt Count 220 MPV 12.0 H Neut % (Auto) 91.9 H Lymph % (Auto) 2.2 L Roberts % (Auto) 5.7 Eos % (Auto) 0.0 Baso % (Auto) 0.2 Neut # (Auto) 18.3 H Lymph # (Auto) 0.4 L Roberts # (Auto) 1.1 H Eos # (Auto) 0.0 Baso # (Auto) 0.0 WBC Differential . Differential Comment Auto diff final PT INR APTT Sodium Potassium Chloride Carbon Dioxide Anion Gap BUN Creatinine Estimated GFR Random Glucose Lactic Acid 2.4 H 1.0 Calcium Total Bilirubin AST ALT Alkaline Phosphatase Troponin I Total Protein Albumin Lipase Blood Type Blood Type Recheck Antibody Screen - Imaging Impressions Chest X-Ray 08/10/18 06:32 CONCLUSION: Minimal parenchymal changes left base otherwise negative Abdomen/Pelvis CT 08/10/18 07:16 CONCLUSION: 1. Dilatation of both large and small bowel with air-fluid levels in the large bolus of stool in rectum consistent with impaction. 2. There is no free air <Min Balderas - Last Filed: 08/11/18 00:16> Assessment and Plan - Plan Large and small bowel air-fluid levels consistent with obstruction. Unknown onset except per the record patient was noted to have abdominal distention. Abdomen continues to be mild/moderate distention with tympany noted. No obvious bowel sounds. NG tube intact and connected to low intermittent suction Fecal impaction noted on CT scan, on admission to the ER patient was manually disimpacted and his continued to have solid hard formed brown stools but no obvious bleeding Coffee-ground emesis which is Gastroccult positive greater than 1 L expelled since NG tube placed. Positive for possible GI bleed. History of dementia and CVA as well as constipation according to the record. Patient is unable to give any information and there is no family present Current labs include hemoglobin 13.1, PT/INR 1.2, bilirubin and LFTs are normal , leukocytosis with elevated white count 19.9, unspecified but could be related to patient's bowel obstruction and/or fecal impaction Plan Diet n.p.o. NG tube connected to low intermittent suction and to continue We will need to monitor labs with special attention hemoglobin Continue Zosyn PPI drip Consider IV hydration Consider EGD and further recommendations once patient is stable from large and small bowel obstruction Consider surgical consult for their expert opinion Patient was seen per myself and Dr. Baldreas, note was written on his behalf <Makayla Troncoso - Last Filed: 08/10/18 15:39> - Plan Patient seen and examined Agree with above Continue with current supportive care Monitor labs <Min Balderas E - Last Filed: 08/11/18 00:16>
[2018-08-10] MEDS: Sod Chloride 0.9% Inj 1,000 ML IV.CONT SCH (15:38)
[2018-08-10] MEDS: Piperacil/Tazo 3.375 GM Premix 50 ML IV.SIG SCH (19:15)
--- NOTE | 2018-08-10 22:13 | MB ---
cc: Dhaval Cortés MD DATE: 08/10/2018 REQUESTING PHYSICIAN: Juan Ramirez MD REASON FOR CONSULTATION: Small bowel distention due to constipation and impaction. HISTORY OF PRESENT ILLNESS: The patient is a 58-year-old male with history of dementia and CVA, chronic altered mental status, permanent resident of [facility]. The patient is currently DNR/DNI and has other multiple medical comorbidities. The patient was brought to the emergency department due to foul smelling emesis and distended abdomen per the [facility] staff. The patient was unable to give any history and there is minimal records and history of present illness presented by the staff. The patient underwent evaluation including a CT scan of the abdomen and pelvis, which did show large fecal impaction and some significantly dilated small bowel, likely chronic. General Surgery was consulted for evaluation as well as Gastroenterology. The patient was able to be partially disimpacted at the bedside by the emergency room physician. REVIEW OF SYSTEMS: Unable to obtain. The patient has mental status. PAST MEDICAL HISTORY: All history is obtained from the chart, he has hypertension, dementia, depression, constipation, history of CVA and ischemic hemorrhage. PAST SURGICAL HISTORY: Unknown. SOCIAL HISTORY: The patient lives in a [facility]. Unknown if he has never had any substance abuse or substance use. FAMILY HISTORY: Unknown. ALLERGIES: NO KNOWN DRUG ALLERGIES. MEDICATIONS: 1. Amitriptyline. 2. Abilify. 3. Lasix. 4. Ativan. 5. Milk of Magnesia. 6. Seroquel. 7. Zoloft. 8. Aldactone. 9. Valproic acid. PHYSICAL EXAMINATION: VITAL SIGNS: Temperature 97.7 degrees, heart rate 98, respiratory rate 18, blood pressure 136/101. GENERAL: The patient is bedridden and altered mental status. The patient does respond to voice, as well as touch. HEENT: Head is normocephalic, atraumatic. Airway is patent. NECK: Supple. No JVD. LUNGS: Breath sounds present bilaterally. Nonlabored breathing pattern. HEART: Regular rate and rhythm. ABDOMEN: Mildly distended, tympanic. RECTAL: Deferred as was just performed by emergency department prior to my arrival. EXTREMITIES: Cachectic and with no edema. SKIN: Warm and perfused. LABORATORY VALUES: White blood cell count 19, hemoglobin 13.1. IMAGING: CT scan abdomen and pelvis was reviewed including the images shows fecal impaction and dilated small bowel and large bowel. ASSESSMENT AND PLAN: The patient is a 58-year-old male with chronic impaction and dilated small and large bowel. The patient has very significantly dilated bowel and a very large impaction. This has likely been a chronic to subacute process and is not an acute obstruction. The patient was able to pass stool and gas in the emergency department with disimpaction. The underlying treatment for this acute obstruction is to treat the disimpaction. I agree with bedside disimpaction as performed as well as Gastroenterology assistance and continued medical management. There is no need for any acute surgical intervention at this time. If the patient does experience any complications from the impaction such as rectal or renal injury or problem, I would recommend transfer to a tertiary center for colorectal evaluation if no colorectal is available here. However, I do feel the patient can be managed medically at this time. Thank you very much for this consultation. Do not recommend any further surgery. We will sign off. Please call if we can be of any further assistance. MD NANO Rangel/genaro , 03:59 PM , 04:10 PM
[2018-08-11] MEDS: Sod Chloride 0.9% Inj 1,000 ML IV.CONT SCH ×3 (00:28→21:06)
[2018-08-11] MEDS: Piperacil/Tazo 3.375 GM Premix 50 ML IV.SIG SCH ×4 (05:27→17:13)
--- NOTE | 2018-08-11 07:33 | P.PN ---
Subjective Interval history: Patient doing well overnight, reports BM x2 with relief of his abd pain. Patient denies fever and chills. No overnight concerns per RN. Physical Exam Vital signs: Vital Signs 08/10/18 10:14 08/10/18 11:00 08/10/18 13:00 Temperature Pulse Rate 90 90 90 Respiratory Rate 14 17 20 Blood Pressure 133/89 118/94 H 126/82 Pulse Oximetry 93 L 96 99 08/10/18 15:07 08/10/18 19:31 08/10/18 20:00 Temperature 98.5 F Pulse Rate 92 H 92 H 83 Respiratory Rate 14 18 Blood Pressure 118/86 115/72 Pulse Oximetry 96 97 08/11/18 00:00 08/11/18 04:00 Temperature 98.5 F 98.1 F Pulse Rate 80 84 Respiratory Rate 20 18 Blood Pressure 101/75 108/64 Pulse Oximetry 91 L 93 L Intake & Output 08/10/18 08/11/18 08/11/18 18:59 06:59 18:59 Intake Total 135 / 135 1050 / 1050 Output Total 550 / 550 Balance -415 / -415 1050 / 1050 Intake: IV 135 / 135 1050 / 1050 NS Inj 1,000 ML @ 100 mls/hr IV 1000 / 1000 .CONT .Q10H ANDREW Rx#:[id number] Protonix Inj 80 MG In NS Inj 35 35 / 35 ML @ 420 mls/hr IV.SIG BOLUS ONE Rx#:[id number] Zosyn 3.375 GM Premix 50 ML @ 50 / 50 100 mls/hr IV.SIG Q6H [facility] Rx#: [id number] Zosyn 4.5 GM Premix 4.5 gm In 100 / 100 100 ml @ 200 mls/hr IV.SIG ONCE ONE Rx#:[id number] Output: Gastric Drainage 550 / 550 Right Nare Nasogastric Tube 550 / 550 Narrative: GENERAL: thin, male, not well groomed, in NAD, NG tube in place SKIN: Warm and dry. HEAD: Normocephalic. EYES: No scleral icterus. No injection or drainage. NECK: Supple, trachea midline. No JVD or lymphadenopathy. CARDIOVASCULAR: Regular rate and rhythm without murmurs, gallops, or rubs. RESPIRATORY: Breath sounds equal bilaterally. No accessory muscle use. GASTROINTESTINAL: Abdomen soft, non-tender, nondistended. MUSCULOSKELETAL: No cyanosis, or edema. BACK: Nontender without obvious deformity. No CVA tenderness. NEURO: AAOx1, patient nods to questions, unable to understand limited speech, patient moving all extremities but does not follow command. Results - Labs CBC & Chem 7: 08/11/18 07:00 08/11/18 07:00 Laboratory Results - last 24 hr 08/10/18 08/10/18 08/10/18 06:30 06:30 06:45 WBC RBC Hgb Hct MCV MCH MCHC RDW Plt Count MPV Neut % (Auto) Lymph % (Auto) Dixie % (Auto) Eos % (Auto) Baso % (Auto) Neut # (Auto) Lymph # (Auto) Dixie # (Auto) Eos # (Auto) Baso # (Auto) WBC Differential Differential Comment Sodium 140 Potassium 3.7 Chloride 102 Carbon Dioxide 27.3 Anion Gap 11 BUN 32 H Creatinine 1.00 Estimated GFR 76 L Random Glucose 137 H Lactic Acid 2.4 H Calcium 8.7 Total Bilirubin 0.6 AST 29 ALT 35 Alkaline Phosphatase 87 Troponin I Less than 0.02 L Total Protein 8.2 Albumin 3.9 Lipase 90 Blood Type A Positive Blood Type Recheck Required Antibody Screen Negative 08/10/18 08/10/18 09:15 22:15 WBC 19.9 H RBC 4.18 L Hgb 13.1 Hct 38.8 L MCV 92.7 MCH 31.3 MCHC 33.8 RDW 13.2 Plt Count 220 MPV 12.0 H Neut % (Auto) 91.9 H Lymph % (Auto) 2.2 L Dixie % (Auto) 5.7 Eos % (Auto) 0.0 Baso % (Auto) 0.2 Neut # (Auto) 18.3 H Lymph # (Auto) 0.4 L Dixie # (Auto) 1.1 H Eos # (Auto) 0.0 Baso # (Auto) 0.0 WBC Differential . Differential Comment Auto diff final Sodium Potassium Chloride Carbon Dioxide Anion Gap BUN Creatinine Estimated GFR Random Glucose Lactic Acid 1.0 Calcium Total Bilirubin AST ALT Alkaline Phosphatase Troponin I Total Protein Albumin Lipase Blood Type Blood Type Recheck Antibody Screen - Imaging Impressions Abdomen/Pelvis CT 08/10/18 07:16 CONCLUSION: 1. Dilatation of both large and small bowel with air-fluid levels in the large bolus of stool in rectum consistent with impaction. 2. There is no free air Assessment and Plan - Assessment (1) Fecal impaction Code(s): K56.41 - Fecal impaction Status: Acute (2) Bacteremia Code(s): R78.81 - Bacteremia Status: Acute (3) Dementia Code(s): F03.90 - Unspecified dementia without behavioral disturbance Status: Acute (4) Upper GI bleed Code(s): K92.2 - Gastrointestinal hemorrhage, unspecified Status: Acute - Plan This patient is a 58-year-old male CM with PMHx of Dementia admitted from a [facility] for IP mgmt of chronic constipation and a distended abdomen, CT scan of the abdomen showed dilated small and large bowel, HD#1 1. Upper GI Bleed/Fecal Impaction- GI managing BMx2 overnight PPI Drip NPO IVF NG tube placed overnight but fell off in AM KUB showing stool, fleets enema started per GI CT ABD: Small and large bowel obstruction. Systemic inflammatory response syndrome possibly secondary to intra-abdominal infection. KUB: Minimal stool is seen scattered throughout the colon with mild proximal small bowel rotation. Large bolus of stool is present in the rectum. Degenerative changes in the lower lumbar spine. There is no free air. Stool as above with some proximal small bowel gas nonspecific. Per GI reccs: Consider EGD and further recommendations once patient is stable from large and small bowel obstruction. KUB still showing stool, Fleets enema ordered, NG tube fell out this AM after my evaluation. 2. Bacteremia Bld Cx x1 positive for S. Aureus pending sensitivity on 08/10, other Bld Cx on Ng@24hrs UA WNL On Zosyn started on 08/11, Vanc added after Bld Cx result F/U CBC and CRP in AM ID consulted- appreciate assistance with mgmt 3. Leukocytosis WBC 10.1 today from 19.1 on admission Due to Bacteremia- see above Neg CXR Will get UA 4. Hypertension Holding home BP meds due to low BP, resume as needed. Home meds- Spironolactone , KCl, and Lasix. 5. Dementia/Anxiety/Depression At baseline, minimally verbal Will resume home meds- Abilify, Zoloft, Ativan, Seroquel, Valproic acid, and Amitriptyline 6. DVT PPX: SCD's 7. Dispo: F/U GI reccs, ID consulted for bacteremia on Zosyn and Vanc, F/U Bld Cx Code Status: full Discussed Condition With: patient and RN
[2018-08-11 07:50] LABS: Baso # (Auto) 0.1 th/mm3 (0.0-0.2); Baso % (Auto) 0.5 % (0.0-2.0); Eos # (Auto) 0.4 th/mm3 (0.0-0.4); Hematocrit 35.5 % (39.0-51.0); Hemoglobin 11.9 gm/dL (13.0-17.0); Lymph # (Auto) 1.4 th/mm3 (1.0-4.8); Lymph % (Auto) 14.3 % (9.0-44.0); Mean Corpuscular HGB Conc 33.6 % (32.0-36.0); Mean Corpuscular Hemoglobin 30.8 pg (27.0-34.0); Mean Corpuscular Volume 91.7 fL (80.0-100.0); Mean Platelet Volume 11.5 fL (7.0-11.0); Mono # (Auto) 0.9 th/mm3 (0.0-0.9); Neut # (Auto) 7.3 th/mm3 (1.8-7.7); Neut % (Auto) 72.2 % (16.0-70.0); Platelet Count 179 th/mm3 (150-450); Red Blood Count 3.87 mil/mm3 (4.50-5.90); Red Cell Distribution Width 13.3 % (11.6-17.2); White Blood Count 10.1 th/mm3 (4.0-11.0)
[2018-08-11 08:09] LABS: Anion Gap 6 meq/L (5-15); Blood Urea Nitrogen 30 mg/dL (7-18); Chloride 106 meq/L (98-107); Glomerular Filtration Rate Greater Than 89 mL/min (>89); Glucose,Random 87 mg/dL (74-106); Potassium 3.8 meq/L (3.5-5.1); Sodium 143 meq/L (136-145)
--- NOTE | 2018-08-11 10:35 | P.PNGI ---
Subjective Interval history: Patient more alert resting in the bed NG tube has minimal drainage now but still appears to have a dark serous color to it currently denies any abdominal pain Physical Exam Vital signs: Vital Signs 08/10/18 11:00 08/10/18 13:00 08/10/18 15:07 Temperature Pulse Rate 90 90 92 H Respiratory Rate 17 20 14 Blood Pressure 118/94 H 126/82 118/86 Pulse Oximetry 96 99 96 08/10/18 19:31 08/10/18 20:00 08/11/18 00:00 Temperature 98.5 F 98.5 F Pulse Rate 92 H 83 80 Respiratory Rate 18 20 Blood Pressure 115/72 101/75 Pulse Oximetry 97 91 L 08/11/18 04:00 08/11/18 07:38 Temperature 98.1 F 98.2 F Pulse Rate 84 64 Respiratory Rate 18 18 Blood Pressure 108/64 100/53 L Pulse Oximetry 93 L 96 Intake & Output 08/10/18 08/11/18 08/11/18 18:59 06:59 18:59 Intake Total 135 / 135 1050 / 1050 Output Total 550 / 550 Balance -415 / -415 1050 / 1050 Intake: IV 135 / 135 1050 / 1050 NS Inj 1,000 ML @ 100 mls/hr IV 1000 / 1000 .CONT .Q10H [facility] Rx#:[id number] Protonix Inj 80 MG In NS Inj 35 35 / 35 ML @ 420 mls/hr IV.SIG BOLUS ONE Rx#:[id number] Zosyn 3.375 GM Premix 50 ML @ 50 / 50 100 mls/hr IV.SIG Q6H [facility] Rx#: [id number] Zosyn 4.5 GM Premix 4.5 gm In 100 / 100 100 ml @ 200 mls/hr IV.SIG ONCE ONE Rx#:[id number] Output: Gastric Drainage 550 / 550 Right Nare Nasogastric Tube 550 / 550 - Constitutional mild distress, thin, cachectic - Routine HEENT Exam ENT: Present: mucous membranes moist (NG tube to low intermittent suction) - Routine Neck Exam Present: supple - Routine Respiratory Exam Present: accessory muscle use (No obvious shortness of breath) - Routine Cardiovascular Exam Present: S1, S2 - Routine Abdominal Exam Present: soft (Flat minimal distention no obvious tympany, soft bowel sounds returning) - Routine Neurological Exam Present: alert Results - Labs CBC & Chem 7: 08/11/18 07:00 08/11/18 07:00 Laboratory Results - last 24 hr 08/10/18 08/10/18 08/11/18 09:15 22:15 07:00 WBC 19.9 H 10.1 RBC 4.18 L 3.87 L Hgb 13.1 11.9 L Hct 38.8 L 35.5 L MCV 92.7 91.7 MCH 31.3 30.8 MCHC 33.8 33.6 RDW 13.2 13.3 Plt Count 220 179 MPV 12.0 H 11.5 H Neut % (Auto) 91.9 H 72.2 H Lymph % (Auto) 2.2 L 14.3 [place] % (Auto) 5.7 9.0 H Eos % (Auto) 0.0 4.0 Baso % (Auto) 0.2 0.5 Neut # (Auto) 18.3 H 7.3 Lymph # (Auto) 0.4 L 1.4 [place] # (Auto) 1.1 H 0.9 Eos # (Auto) 0.0 0.4 Baso # (Auto) 0.0 0.1 WBC Differential . . Differential Comment Auto diff final Auto diff final Sodium Potassium Chloride Carbon Dioxide Anion Gap BUN Creatinine Estimated GFR Random Glucose Lactic Acid 1.0 Calcium 08/11/18 07:00 WBC RBC Hgb Hct MCV MCH MCHC RDW Plt Count MPV Neut % (Auto) Lymph % (Auto) [place] % (Auto) Eos % (Auto) Baso % (Auto) Neut # (Auto) Lymph # (Auto) [place] # (Auto) Eos # (Auto) Baso # (Auto) WBC Differential Differential Comment Sodium 143 Potassium 3.8 Chloride 106 Carbon Dioxide 31.0 Anion Gap 6 BUN 30 H Creatinine 0.76 Estimated GFR Greater than 89 Random Glucose 87 Lactic Acid Calcium 8.0 L - Imaging Impressions Abdomen/Pelvis CT 08/10/18 07:16 CONCLUSION: 1. Dilatation of both large and small bowel with air-fluid levels in the large bolus of stool in rectum consistent with impaction. 2. There is no free air Assessment and Plan - Plan Large and small bowel air-fluid levels consistent with obstruction. Unknown onset except per the record patient was noted to have abdominal distention. Abdomen continues to be mild/moderate distention with tympany noted. No obvious bowel sounds. NG tube intact and connected to low intermittent suction Fecal impaction noted on CT scan, on admission to the ER patient was manually disimpacted and his continued to have solid hard formed brown stools but no obvious bleeding Coffee-ground emesis which is Gastroccult positive greater than 1 L expelled since NG tube placed. Positive for possible GI bleed. History of dementia and CVA as well as constipation according to the record. Patient is unable to give any information and there is no family present Current labs include hemoglobin 13.1, PT/INR 1.2, bilirubin and LFTs are normal , leukocytosis with elevated white count 19.9, unspecified but could be related to patient's bowel obstruction and/or fecal impaction 08/11/2018 patient is more alert today and attempting to answer simple questions. Minimal NG tube drainage noted now but still may have dark serous color hemoglobin was 13.1 now 11.9. Will need to continue to monitor for any further GI bleeding. Bowel sounds are soft and appear to be returning abdomen is flat non-tympanic for now. Hold any blood thinners large and small bowel obstruction could have been related to fecal impaction. Appears to be resolving. Plan Diet n.p.o. NG tube connected to low intermittent suction and to continue Monitor labs and hemoglobin, hold any blood thinners Zosyn PPI drip, continue for now Consider EGD and further recommendations once patient is stable from large and small bowel obstruction KUB in the morning Patient was seen per myself and Dr. Balderas, note was written on his behalf
--- NOTE | 2018-08-11 13:31 | XR ---
EXAM DATE: 08/11/2018 1:21 PM EDT AGE/SEX: 58 years / Male INDICATIONS: Evaluate for obstruction CLINICAL DATA: This is the patient's initial encounter. Patient reports that signs and symptoms have been present for 2 days and indicates a pain score of Nonresponsive. MEDICAL/SURGICAL HISTORY: Non-responsive. Non-responsive. COMPARISON: No prior exams available for comparison. FINDINGS: Minimal stool is seen scattered throughout the colon with mild proximal small bowel rotation. Large bolus of stool is present in the rectum. Degenerative changes in the lower lumbar spine. There is no free air. CONCLUSION: Stool as above with some proximal small bowel gas nonspecific. Sign report Electronically signed by: Marcello Scales MD 08/11/2018 1:30 PM EDT
[2018-08-11] MEDS ORDERED: Sod Phosphate/Sod Biphosphate (Adult) Enema 133 ML Bottle RECTAL ONE (15:00)
[2018-08-11] MEDS ORDERED: Vancomycin Consult Pharmacy OTHER SCH (17:00)
[2018-08-11] MEDS: ARIPiprazole 5 MG Tablet PO SCH (17:22)
[2018-08-11] MEDS: Sertraline 100 MG Tablet PO SCH (17:22)
[2018-08-11] MEDS ORDERED: SODIUM CHLOR 0.9% IV.SIG ONE (18:00)
[2018-08-11] MEDS ORDERED: VANCOMYCIN IV.SIG ONE (18:00)
[2018-08-11] MEDS ORDERED: Vancomycin Inj 2,000 MG in Sodium Chlor 0.9% Inj 500 ML IV.SIG ONE (18:00)
[2018-08-11] MEDS: QUEtiapine 25 MG Tablet PO SCH (21:06)
[2018-08-12] MEDS: Piperacil/Tazo 3.375 GM Premix 50 ML IV.SIG SCH ×4 (01:00→17:31)
[2018-08-12] MEDS: Sod Chloride 0.9% Inj 1,000 ML IV.CONT SCH ×2 (05:11→15:57)
[2018-08-12] MEDS ORDERED: Vancomycin Inj 1,250 MG in Sodium Chlor 0.9% Inj 250 ML IV.SIG SCH (06:00)
[2018-08-12 06:07] LABS: Baso # (Auto) 0.1 th/mm3 (0.0-0.2); Baso % (Auto) 0.7 % (0.0-2.0); Eos # (Auto) 0.4 th/mm3 (0.0-0.4); Hematocrit 32.5 % (39.0-51.0); Hemoglobin 10.7 gm/dL (13.0-17.0); Lymph # (Auto) 1.5 th/mm3 (1.0-4.8); Lymph % (Auto) 16.2 % (9.0-44.0); Mean Corpuscular HGB Conc 32.9 % (32.0-36.0); Mean Corpuscular Hemoglobin 30.8 pg (27.0-34.0); Mean Corpuscular Volume 93.7 fL (80.0-100.0); Mean Platelet Volume 10.6 fL (7.0-11.0); Neut # (Auto) 6.1 th/mm3 (1.8-7.7); Neut % (Auto) 68.1 % (16.0-70.0); Platelet Count 248 th/mm3 (150-450); Red Blood Count 3.47 mil/mm3 (4.50-5.90); Red Cell Distribution Width 13.3 % (11.6-17.2)
[2018-08-12 06:45] LABS: Alanine Aminotransferase 26 U/L (12-78); Albumin 2.9 g/dL (3.4-5.0); Alkaline Phosphatase 66 U/L (45-117); Anion Gap 8 meq/L (5-15); Aspartate Aminotransferase 34 U/L (15-37); Blood Urea Nitrogen 22 mg/dL (7-18); C-Reactive Protein 0.53 mg/dL (0.00-0.30); Calcium 8.1 mg/dL (8.5-10.1); Carbon Dioxide 29.4 meq/L (21.0-32.0); Chloride 110 meq/L (98-107); Glomerular Filtration Rate Greater Than 89 mL/min (>89); Glucose,Random 64 mg/dL (74-106); Potassium 3.1 meq/L (3.5-5.1); Sodium 147 meq/L (136-145); Total Protein 6.1 g/dL (6.4-8.2)
--- NOTE | 2018-08-12 08:54 | P.PN ---
Subjective Interval history: This is a pleasant 58 y/o male with Hypertension, Dementia, Depression, constipation, chronic essential tremor, history of CVA who appears to be from [facility] [place]. The patient is DNR and DNI. Seen in his bedroom today is confused, discussed with nurse to remove restraints , he had three bowel movements so far since admission, last night had two, KUB showed minimal stool scattered throughout the colon with mild proximal small bowel rotation, large bolus of stool in rectum, asked by GI for Full liquid diet as tolerated, avoid blood thinners, no nausea or vomit reported. Physical Exam Vital signs: Vital Signs 08/11/18 11:43 08/11/18 16:00 08/11/18 20:00 Temperature 98.3 F 97.6 F 97.6 F Pulse Rate 66 104 H 83 Respiratory Rate 18 19 18 Blood Pressure 94/58 L 103/73 118/56 L Pulse Oximetry 97 88 L 98 08/12/18 00:00 08/12/18 00:14 08/12/18 04:27 Temperature 97.7 F 97.5 F L Pulse Rate 70 72 87 Respiratory Rate 18 20 Blood Pressure 110/64 127/65 Pulse Oximetry 94 L 95 Intake & Output 08/11/18 08/12/18 08/12/18 18:59 06:59 18:59 Intake Total 50 / 50 1882.5 / 1882.5 Output Total 2 / 2 Balance 48 / 48 1882.5 / 1882.5 Weight 62.9 kg Intake: IV 50 / 50 1882.5 / 1882.5 NS Inj 1,000 ML @ 100 mls/hr IV 1000 / 1000 .CONT .Q10H [facility] Rx#:[id number] Zosyn 3.375 GM Premix 50 ML @ 50 / 50 100 / 100 100 mls/hr IV.SIG Q6H [facility] Rx#: [id number] Vancomycin Inj 1,250 MG In NS 262.5 / 262.5 Inj 250 ML @ 250 mls/hr IV.SIG Q12H [facility] Rx#:[id number] Vancomycin Inj 2,000 MG In NS 520 / 520 Inj 500 ML @ 250 mls/hr IV.SIG ONCE ONE Rx#:[id number] Output: Stool Urine/Stool Mix Other: # Voids 1 Date of Last Bowel Movement 08/10/18 08/11/18 # Bowel Movements 2 Narrative: GENERAL: thin, male, not well groomed, no acute distress. SKIN: Warm and dry. HEAD: Normocephalic. EYES: No scleral icterus. No injection or drainage. NECK: Supple, trachea midline. No JVD or lymphadenopathy. CARDIOVASCULAR: Regular rate and rhythm without murmurs, gallops, or rubs. RESPIRATORY: Breath sounds equal bilaterally. No accessory muscle use. GASTROINTESTINAL: Abdomen soft, non-tender, nondistended. MUSCULOSKELETAL: No cyanosis, or edema. BACK: Nontender without obvious deformity. No CVA tenderness. NEURO: AAOx1, has soft wrist restraints. Results - Labs CBC & Chem 7: 08/12/18 04:38 08/12/18 04:38 Laboratory Results - last 24 hr 08/12/18 08/12/18 04:38 04:38 WBC 9.0 RBC 3.47 L Hgb 10.7 L Hct 32.5 L MCV 93.7 MCH 30.8 MCHC 32.9 RDW 13.3 Plt Count 248 D MPV 10.6 Neut % (Auto) 68.1 Lymph % (Auto) 16.2 [place] % (Auto) 11.0 H Eos % (Auto) 4.0 Baso % (Auto) 0.7 Neut # (Auto) 6.1 Lymph # (Auto) 1.5 [place] # (Auto) 1.0 H Eos # (Auto) 0.4 Baso # (Auto) 0.1 WBC Differential . Differential Comment Auto diff final Sodium 147 H Potassium 3.1 L Chloride 110 H Carbon Dioxide 29.4 Anion Gap 8 BUN 22 H Creatinine 0.64 Estimated GFR Greater than 89 Random Glucose 64 L Calcium 8.1 L Total Bilirubin 0.7 AST 34 ALT 26 Alkaline Phosphatase 66 C-Reactive Protein 0.53 H Total Protein 6.1 L D Albumin 2.9 L D Microbiology 08/10/18 06:50 Blood - Peripheral Aerobic Blood Culture - Preliminary Staphylococcus aureus 08/10/18 06:50 Blood - Peripheral Anaerobic Blood Culture - Preliminary No growth in 1 day 08/10/18 15:30 Blood - Peripheral Aerobic Blood Culture - Preliminary No growth in 1 day 08/10/18 15:30 Blood - Peripheral Anaerobic Blood Culture - Preliminary No growth in 1 day 08/10/18 15:45 Blood - Peripheral Aerobic Blood Culture - Preliminary No growth in 1 day 08/10/18 15:45 Blood - Peripheral Anaerobic Blood Culture - Preliminary No growth in 1 day 08/10/18 06:50 Blood - Peripheral Aerobic Blood Culture - Preliminary No growth in 1 day 08/10/18 06:50 Blood - Peripheral Anaerobic Blood Culture - Preliminary No growth in 1 day - Imaging Impressions Abdomen X-Ray 08/11/18 13:30 CONCLUSION: Stool as above with some proximal small bowel gas nonspecific. Sign report Chest X-Ray 08/10/18 06:32 CONCLUSION: Minimal parenchymal changes left base otherwise negative Abdomen/Pelvis CT 08/10/18 07:16 CONCLUSION: 1. Dilatation of both large and small bowel with air-fluid levels in the large bolus of stool in rectum consistent with impaction. 2. There is no free air Assessment and Plan - Assessment (1) Fecal impaction Code(s): K56.41 - Fecal impaction Status: Acute (2) Bacteremia Code(s): R78.81 - Bacteremia Status: Acute (3) Dementia Code(s): F03.90 - Unspecified dementia without behavioral disturbance Status: Acute (4) Upper GI bleed Code(s): K92.2 - Gastrointestinal hemorrhage, unspecified Status: Acute - Plan This patient is a 58-year-old male CM with PMHx of Dementia [facility] mgmt of chronic constipation and a distended abdomen, CT scan of the abdomen showed dilated small and large bowel 1. Large and Small bowel airfluid levels consistent with Obstruction, Fecal impaction on CT scan, no obvious GI bleed but had positive Gastroccult positive on NG tube placed, probable GI bleed, Hemoglobin stable, GI specialist following recommended for no blood thinners, continue NPO, Zosyn, PPI drip, consider EGD. had BM x 2 yesterday night and one yesterday morning so far three BMs already, continue supportive care as per CT ABD: Small and large bowel obstruction. Systemic inflammatory response syndrome possibly secondary to intra-abdominal infection. KUB: Minimal stool is seen scattered throughout the colon with mild proximal small bowel rotation. Large bolus of stool is present in the rectum. Degenerative changes in the lower lumbar spine. There is no free air. Stool as above with some proximal small bowel gas nonspecific. 2. Bacteremia questionable has only one bottle positive for Staph aureus may be contaminant, remove Vancomycin and continue Zosyn by now, Bld Cx x1 positive for S. Aureus pending sensitivity on 08/10, other Bld Cx on Ng@24hrs UA WNL On Zosyn started on 08/11, Vanc removed. F/U CBC and CRP in AM ID consulted- not yet seen by ID will follow recommendations. 3. Leukocytosis probable reactive continue Zosyn and following ID recommendations once seen. WBC 10.1 today from 19.1 on admission Neg CXR Will get UA 4. Hypertension Holding home BP meds due to low BP, resume as needed. Home meds- Spironolactone , KCl, and Lasix. 5. Dementia/Anxiety/Depression At baseline, minimally verbal Will resume home meds- Abilify, Zoloft, Ativan, Seroquel, Valproic acid, and Amitriptyline 6. DVT PPX: SCD's 7. Dispo: F/U GI reccs, ID consulted for bacteremia on Zosyn and Vanc, F/U Bld Cx Code Status: DNR Discussed Condition With: Nurse Miss Gaspar Discharge Planning: Expected by tomorrow
[2018-08-12 09:37] LABS: Magnesium 1.9 mg/dL (1.5-2.5); Phosphorus 2.4 mg/dL (2.5-4.9)
[2018-08-12] MEDS: Potassium Chlor 10 mEq Premix 10 MEQ/100 ML PIGGYBACK IV.SIG SCH ×9 (09:42→22:11)
[2018-08-12] MEDS: ARIPiprazole 5 MG Tablet PO SCH (09:46)
[2018-08-12] MEDS: QUEtiapine 25 MG Tablet PO SCH ×2 (09:46→22:11)
[2018-08-12] MEDS: Sertraline 100 MG Tablet PO SCH (09:47)
--- NOTE | 2018-08-12 11:26 | P.PNGI ---
Subjective Interval history: Patient laying in bed appears comfortable. Awake and alert and soft bilateral wrist restraints. No apparent distress and denies abdominal pain. Nurse reports patient has had no vomiting. She states patient had one bowel movement last night and another one this morning. <Chinyere Carrasco - Last Filed: 08/12/18 11:09> Physical Exam Vital signs: Vital Signs 08/11/18 11:43 08/11/18 16:00 08/11/18 20:00 Temperature 98.3 F 97.6 F 97.6 F Pulse Rate 66 104 H 83 Respiratory Rate 18 19 18 Blood Pressure 94/58 L 103/73 118/56 L Pulse Oximetry 97 88 L 98 08/12/18 00:00 08/12/18 00:14 08/12/18 04:27 Temperature 97.7 F 97.5 F L Pulse Rate 70 72 87 Respiratory Rate 18 20 Blood Pressure 110/64 127/65 Pulse Oximetry 94 L 95 08/12/18 08:00 08/12/18 10:53 Temperature 98.1 F Pulse Rate 66 Respiratory Rate 14 Blood Pressure 109/65 Pulse Oximetry 95 95 Intake & Output 08/11/18 08/12/18 08/12/18 18:59 06:59 18:59 Intake Total 50 / 50 1882.5 / 1882.5 100 / 100 Output Total 2 / 2 Balance 48 / 48 1882.5 / 1882.5 100 / 100 Weight 62.9 kg Intake: IV 50 / 50 1882.5 / 1882.5 100 / 100 NS Inj 1,000 ML @ 100 mls/hr IV 1000 / 1000 .CONT .Q10H [facility] Rx#:[id number] Zosyn 3.375 GM Premix 50 ML @ 50 / 50 100 / 100 100 mls/hr IV.SIG Q6H [facility] Rx#: [id number] KCl 10 mEq Premix Inj 10 meq In 100 / 100 100 ml @ 100 mls/hr IV.SIG Q1H [facility] Rx#:[id number] Vancomycin Inj 1,250 MG In NS 262.5 / 262.5 Inj 250 ML @ 250 mls/hr IV.SIG Q12H [facility] Rx#:[id number] Vancomycin Inj 2,000 MG In NS 520 / 520 Inj 500 ML @ 250 mls/hr IV.SIG ONCE ONE Rx#:[id number] Output: Stool 1 / 1 Urine/Stool Mix 1 / 1 Other: # Voids 1 Date of Last Bowel Movement 08/10/18 08/11/18 # Bowel Movements 2 - Constitutional no acute distress - Routine HEENT Exam Head: Present: normocephalic - Routine Neck Exam Present: supple - Routine Respiratory Exam Present: CTA bilaterally. Absent: respiratory distress - Routine Cardiovascular Exam Present: RRR - Routine Abdominal Exam Present: soft, normoactive bowel sounds. Absent: tenderness, distended, guarding, firm - Routine Extremities Exam Present: full ROM - Routine Skin Exam Present: dry, warm - Routine Neurological Exam Present: alert - Detailed Neurological Exam: Coma Scale Eye Opening: Spontaneous Verbal Response: Confused <Carrasco,Chinyere - Last Filed: 08/12/18 11:09> Vital signs: Vital Signs 08/11/18 16:00 08/11/18 20:00 08/12/18 00:00 Temperature 97.6 F 97.6 F Pulse Rate 104 H 83 70 Respiratory Rate 19 18 Blood Pressure 103/73 118/56 L Pulse Oximetry 88 L 98 08/12/18 00:14 08/12/18 04:27 08/12/18 08:00 Temperature 97.7 F 97.5 F L 98.1 F Pulse Rate 72 87 66 Respiratory Rate 18 20 14 Blood Pressure 110/64 127/65 109/65 Pulse Oximetry 94 L 95 95 08/12/18 09:47 08/12/18 10:53 08/12/18 12:00 Temperature 97.7 F Pulse Rate 63 98 H Respiratory Rate 20 Blood Pressure 129/70 Pulse Oximetry 95 98 Intake & Output 08/11/18 08/12/18 08/12/18 18:59 06:59 18:59 Intake Total 50 / 50 1882.5 / 1882.5 450 / 450 Output Total 2 / 2 Balance 48 / 48 1882.5 / 1882.5 450 / 450 Weight 62.9 kg Intake: IV 50 / 50 1882.5 / 1882.5 450 / 450 NS Inj 1,000 ML @ 100 mls/hr IV 1000 / 1000 .CONT .Q10H [facility] Rx#:[id number] Zosyn 3.375 GM Premix 50 ML @ 50 / 50 100 / 100 50 / 50 100 mls/hr IV.SIG Q6H [facility] Rx#: [id number] KCl 10 mEq Premix Inj 10 meq In 400 / 400 100 ml @ 100 mls/hr IV.SIG Q1H [facility] Rx#:[id number] Vancomycin Inj 1,250 MG In NS 262.5 / 262.5 Inj 250 ML @ 250 mls/hr IV.SIG Q12H [facility] Rx#:[id number] Vancomycin Inj 2,000 MG In NS 520 / 520 Inj 500 ML @ 250 mls/hr IV.SIG ONCE ONE Rx#:[id number] Output: Stool Urine/Stool Mix Other: # Voids 1 Date of Last Bowel Movement 08/10/18 08/11/18 08/12/18 # Bowel Movements 2 <Isidoro Dorantes - Last Filed: 08/12/18 15:49> Results - Labs CBC & Chem 7: 08/12/18 04:38 08/12/18 04:38 Laboratory Results - last 24 hr 08/12/18 08/12/18 08/12/18 04:38 04:38 04:38 WBC 9.0 RBC 3.47 L Hgb 10.7 L Hct 32.5 L MCV 93.7 MCH 30.8 MCHC 32.9 RDW 13.3 Plt Count 248 D MPV 10.6 Neut % (Auto) 68.1 Lymph % (Auto) 16.2 [place] % (Auto) 11.0 H Eos % (Auto) 4.0 Baso % (Auto) 0.7 Neut # (Auto) 6.1 Lymph # (Auto) 1.5 [place] # (Auto) 1.0 H Eos # (Auto) 0.4 Baso # (Auto) 0.1 WBC Differential . Differential Comment Auto diff final Sodium 147 H Potassium 3.1 L Chloride 110 H Carbon Dioxide 29.4 Anion Gap 8 BUN 22 H Creatinine 0.64 Estimated GFR Greater than 89 Random Glucose 64 L Calcium 8.1 L Phosphorus 2.4 L Magnesium 1.9 Total Bilirubin 0.7 AST 34 ALT 26 Alkaline Phosphatase 66 C-Reactive Protein 0.53 H Total Protein 6.1 L D Albumin 2.9 L D Microbiology 08/10/18 15:30 Blood - Peripheral Aerobic Blood Culture - Preliminary No growth in 2 days 08/10/18 15:30 Blood - Peripheral Anaerobic Blood Culture - Preliminary No growth in 2 days 08/10/18 15:45 Blood - Peripheral Aerobic Blood Culture - Preliminary No growth in 2 days 08/10/18 15:45 Blood - Peripheral Anaerobic Blood Culture - Preliminary No growth in 2 days 08/10/18 06:50 Blood - Peripheral Aerobic Blood Culture - Preliminary No growth in 2 days 08/10/18 06:50 Blood - Peripheral Anaerobic Blood Culture - Preliminary No growth in 2 days 08/10/18 06:50 Blood - Peripheral Aerobic Blood Culture - Preliminary Staphylococcus aureus 08/10/18 06:50 Blood - Peripheral Anaerobic Blood Culture - Preliminary No growth in 2 days - Imaging Impressions Abdomen X-Ray 08/11/18 13:30 CONCLUSION: Stool as above with some proximal small bowel gas nonspecific. Sign report <Chinyere Carrasco - Last Filed: 08/12/18 11:09> - Labs CBC & Chem 7: 08/12/18 04:38 08/12/18 04:38 Laboratory Results - last 24 hr 08/12/18 08/12/18 08/12/18 04:38 04:38 04:38 WBC 9.0 RBC 3.47 L Hgb 10.7 L Hct 32.5 L MCV 93.7 MCH 30.8 MCHC 32.9 RDW 13.3 Plt Count 248 D MPV 10.6 Neut % (Auto) 68.1 Lymph % (Auto) 16.2 [place] % (Auto) 11.0 H Eos % (Auto) 4.0 Baso % (Auto) 0.7 Neut # (Auto) 6.1 Lymph # (Auto) 1.5 [place] # (Auto) 1.0 H Eos # (Auto) 0.4 Baso # (Auto) 0.1 WBC Differential . Differential Comment Auto diff final Sodium 147 H Potassium 3.1 L Chloride 110 H Carbon Dioxide 29.4 Anion Gap 8 BUN 22 H Creatinine 0.64 Estimated GFR Greater than 89 Random Glucose 64 L Calcium 8.1 L Phosphorus 2.4 L Magnesium 1.9 Total Bilirubin 0.7 AST 34 ALT 26 Alkaline Phosphatase 66 C-Reactive Protein 0.53 H Total Protein 6.1 L D Albumin 2.9 L D Microbiology 08/10/18 06:50 Blood - Peripheral Aerobic Blood Culture - Preliminary Staphylococcus aureus 08/10/18 06:50 Blood - Peripheral Anaerobic Blood Culture - Preliminary No growth in 2 days 08/10/18 15:30 Blood - Peripheral Aerobic Blood Culture - Preliminary No growth in 2 days 08/10/18 15:30 Blood - Peripheral Anaerobic Blood Culture - Preliminary No growth in 2 days 08/10/18 15:45 Blood - Peripheral Aerobic Blood Culture - Preliminary No growth in 2 days 08/10/18 15:45 Blood - Peripheral Anaerobic Blood Culture - Preliminary No growth in 2 days 08/10/18 06:50 Blood - Peripheral Aerobic Blood Culture - Preliminary No growth in 2 days 08/10/18 06:50 Blood - Peripheral Anaerobic Blood Culture - Preliminary No growth in 2 days <Isidoro Dorantes - Last Filed: 08/12/18 15:49> Assessment and Plan - Plan 08/11/2018 patient is more alert today and attempting to answer simple questions. Minimal NG tube drainage noted now but still may have dark serous color hemoglobin was 13.1 now 11.9. Will need to continue to monitor for any further GI bleeding. Bowel sounds are soft and appear to be returning abdomen is flat non-tympanic for now. Hold any blood thinners large and small bowel obstruction could have been related to fecal impaction. Appears to be resolving. 08/12/18-patient alert and awake laying in bed. No apparent distress noted. Bilateral soft wrist restraints in place. Nurse reports patient had 2 bowel movements and states patient has had no further vomiting. Abdomen soft and flat. KUB done on 08/11/2018 revealed--> Minimal stool is seen scattered throughout the colon with mild proximal small bowel rotation. Large bolus of stool is present in the rectum. Degenerative changes in the lower lumbar spine.There is no free air. This appears to be resolved at this time 920 4:18 AM labs reviewed WBC 9.0 hemoglobin 10.7 hematocrit 32.5 platelet count 248 total bilirubin 0.7 AST 34 ALT 26 alk phos 66. Plan: -Full liquid diet as tolerated -Avoid blood thinners -Bowel regimen continue -Monitor for any bleeding -Monitor for emesis Supportive care Further recommendations to follow This patient has been seen by myself and Dr. Dorantes and this note is written on his behalf. - Attending Attestation Dr. Dorantes <Chinyere Carrasco - Last Filed: 08/12/18 11:09> - Plan Seen and examined with [employer], more confused now in restraints. Smells of feces, discussed with Dr Leonel jaimes of colonoscopy. For now monitor labs and continue bowel cleanse. The exam, history, and the medical decision-making described in the above note were completed with the assistance of the mid-level provider. I reviewed and agree with the findings presented. I attest that I had a [id number] encounter with the patient on the same day, and personally performed and documented my assessment and findings in the medical record. <Isidoro Dorantes - Last Filed: 08/12/18 15:49>
[2018-08-12] MEDS: Magnesium Oxide 400 MG Tablet PO SCH (13:29)
--- NOTE | 2018-08-12 15:33 | MB ---
cc: Eduardo Torres MD DATE: 08/12/2018 REQUESTING PHYSICIAN: Ferdinand Castaneda MD REASON FOR CONSULTATION: Bacteremia. HISTORY OF PRESENT ILLNESS: This is a 58-year-old white male who has severe dementia. The patient was brought to the emergency department from the [facility] because of nausea, vomiting, and diarrhea. He also was noted to have baseline chronic altered mental status. The patient has had no fever and white blood cell count was elevated at 19.9 on admission. Blood cultures were taken on admission and 1 bottle from 4 early in the day of 08/10/2018 has Staphylococcus aureus. Blood cultures were repeated again on the evening of 08/10/2018 and all 4 bottles have no growth in 2 days. White blood cell count has normalized. The patient is somewhat restless and fidgety in bed. The RN reported that he has hallucinations and thinks there are people in the room when no one is in the room. It is very difficult to get any information from the patient because of his altered mental status. He does not appear to be in any acute distress. The patient is a [facility] resident. He has a history of Alzheimer disease and also schizophrenia. PAST MEDICAL HISTORY: It is very difficult to get any history from him. PAST MEDICAL HISTORY: Hypertension, dementia, depression, history of CVA, chronic essential tremor, constipation, schizophrenia. ALLERGIES: NO KNOWN ALLERGIES. MEDICATIONS: 1. Elavil. 2. Abilify. 3. Depakote. 4. Piperacillin-tazobactam. 5. Potassium. 6. Zoloft. 7. Seroquel. SOCIAL HISTORY: The patient is a [facility] resident. No tobacco, alcohol or illicit drugs. FAMILY HISTORY: Unable to obtain. REVIEW OF SYSTEMS: Unable to obtain. PHYSICAL EXAMINATION: GENERAL: This is a frail, thin, cachectic-appearing male, who is awake. He is confused and appears irritable. VITAL SIGNS: Include temperature 98.1, BP 109/65, respirations 14, heart rate 63. HEENT: Head is atraumatic. The head reveals bitemporal wasting. Extraocular movements are grossly intact. Pupils reactive to light. No conjunctival erythema. No icterus. Oropharynx, moist mucosa without lesions. NECK: Supple without adenopathy. LUNGS: Clear, decreased breath sounds. HEART: Regular S1 and S2. No murmurs, rubs or gallops. ABDOMEN: Bowel sounds present. Soft, no tenderness appreciated. RECTAL: Not performed. EXTREMITIES: Diffuse muscle wasting. Marked decreased muscle bulk. No clubbing, cyanosis or edema. No rash. NEUROLOGIC: Unable to assess. PSYCHIATRIC: Unable to assess. LABORATORY DATA: WBC 9.0, platelets 248, hemoglobin 10.7, 68% neutrophils, 16% lymphocytes. Creatinine 0.6, BUN 22, sodium 147. Liver function tests normal. Chest x-ray revealed mild parenchymal changes in the left base. CT scan of the abdomen showed dilatation of both large and small bowel with air fluid levels and large bolus of stool in rectum, consistent with impaction. IMPRESSION: Bacteremia with 1 bottle positive showing Staphylococcus aureus in a patient who had leukocytosis, but no fever and no clinical source suggesting true septicemia. This very likely was contamination. The blood cultures repeated later in the evening have no growth in 2 days and the patient appears to be clinically stable. RECOMMENDATIONS: 1. Discontinue vancomycin. 2. Monitor blood cultures taken in the evening of 08/10/2018 until completion. If the blood cultures remain negative, I do not see the need to treat the patient for the 1 bottle positive blood culture. Thank you for this consultation. I will follow the blood culture along with you and will give further input when they become finalized or if there is growth on the culture and will make further recommendation if the culture comes up positive. MD ANUPAM Caruso/carolina , 01:25 PM , 01:37 PM
[2018-08-12] MEDS: Divalproex 125 MG Sprinkles Capsule PO SCH (22:11)
[2018-08-13] MEDS: Piperacil/Tazo 3.375 GM Premix 50 ML IV.SIG SCH ×5 (00:30→23:58)
[2018-08-13] MEDS: Pantoprazole Inj 80 MG in Sodium Chlor 0.9% Inj 100 ML IV.CONT SCH ×2 (00:33→08:51)
[2018-08-13] MEDS: Potassium Chlor 10 mEq Premix 10 MEQ/100 ML PIGGYBACK IV.SIG SCH ×2 (01:01→01:02)
[2018-08-13 01:44] LABS: Baso % (Auto) 0.5 % (0.0-2.0); Eos # (Auto) 0.3 th/mm3 (0.0-0.4); Eos % (Auto) 4.1 % (0.0-4.0); Hematocrit 31.7 % (39.0-51.0); Hemoglobin 10.8 gm/dL (13.0-17.0); Lymph # (Auto) 1.4 th/mm3 (1.0-4.8); Lymph % (Auto) 18.2 % (9.0-44.0); Mean Corpuscular Hemoglobin 31.2 pg (27.0-34.0); Mean Corpuscular Volume 91.7 fL (80.0-100.0); Mean Platelet Volume 9.5 fL (7.0-11.0); Mono # (Auto) 0.9 th/mm3 (0.0-0.9); Mono % (Auto) 12.1 % (0.0-8.0); Neut # (Auto) 4.9 th/mm3 (1.8-7.7); Neut % (Auto) 65.1 % (16.0-70.0); Platelet Count 278 th/mm3 (150-450); Red Blood Count 3.45 mil/mm3 (4.50-5.90); Red Cell Distribution Width 13.2 % (11.6-17.2); White Blood Count 7.5 th/mm3 (4.0-11.0)
[2018-08-13 02:09] LABS: Anion Gap 10 meq/L (5-15); Blood Urea Nitrogen 13 mg/dL (7-18); Calcium 7.5 mg/dL (8.5-10.1); Carbon Dioxide 27.4 meq/L (21.0-32.0); Chloride 107 meq/L (98-107); Glomerular Filtration Rate Greater Than 89 mL/min (>89); Glucose,Random 89 mg/dL (74-106); Potassium 3.3 meq/L (3.5-5.1); Sodium 144 meq/L (136-145)
[2018-08-13] MEDS ORDERED: Potassium Chloride 25 MEQ Effervescent Tablet PO ONE (02:22)
[2018-08-13 03:08] LABS: Bacteria,Urine Rare /hpf; Bilirubin,Urine Negative (Negative); Clarity,Urine Hazy (Clear); Color,Urine Yellow (Yellw/Straw); Glucose,Urine (UA) Negative (Negative); Hyaline Casts,Urine 3 /lpf (0-3); Leukocyte Esterase,Urine Negative (Negative); Mucus,Urine Few /lpf (Occasional); Nitrite,Urine Negative (Negative); Specific Gravity,Urine 1.018 (1.002-1.035); Squamous Epithelial Cell,Urine 2 /hpf (0-5); Urobilinogen,Urine 4 or Greater mg/dL (Less than 2)
[2018-08-13] MEDS: Sod Chloride 0.9% Inj 1,000 ML IV.CONT SCH ×3 (03:50→21:51)
[2018-08-13] MEDS ORDERED: Pharmacy Ordered Lab Info OTHER ONE (05:45)
[2018-08-13] MEDS: Sertraline 100 MG Tablet PO SCH (08:54)
[2018-08-13] MEDS: QUEtiapine 25 MG Tablet PO SCH ×2 (08:54→21:50)
[2018-08-13] MEDS: Magnesium Oxide 400 MG Tablet PO SCH (08:54)
[2018-08-13] MEDS: ARIPiprazole 5 MG Tablet PO SCH (08:54)
[2018-08-13] MEDS ORDERED: Sodium Chloride 0.9% 2 ML Flush PRN IV.FLUSH (08:56)
[2018-08-13] MEDS: Sodium Chloride 0.9% 2 ML Flush BID IV.FLUSH SCH ×2 (09:02→23:24)
--- NOTE | 2018-08-13 11:13 | P.PN ---
Subjective Interval history: This is a pleasant 58 y/o male with Hypertension, Dementia, Depression, constipation, chronic essential tremor, history of CVA who appears to be from [facility] [place]. The patient is DNR and DNI. Seen in his bedroom today is confused, discussed with nurse to remove restraints , he had three bowel movements so far since admission, last night had two, KUB showed minimal stool scattered throughout the colon with mild proximal small bowel rotation, large bolus of stool in rectum, asked by GI for Full liquid diet as tolerated, avoid blood thinners, no nausea or vomit reported. 08/13: Stable in his bedroom as per Nurse he is able to eat properly, he is awake to eat then comes back to sleep this is his baseline, GI specialist signed off the case, no further recommendations probable Endoscopic studies as outpatient, no nausea, vomit or diarrhea. off wrist restraints to be able to discharge in am tomorrow. Physical Exam Vital signs: Vital Signs 08/12/18 12:00 08/12/18 16:00 08/12/18 20:00 Temperature 97.7 F 97.8 F 98.3 F Pulse Rate 98 H 86 83 Respiratory Rate 20 18 20 Blood Pressure 129/70 109/64 125/65 Pulse Oximetry 98 96 93 L 08/13/18 00:00 08/13/18 04:00 08/13/18 08:00 Temperature 97.7 F 97.5 F L 97.1 F L Pulse Rate 67 68 62 Respiratory Rate 18 16 17 Blood Pressure 121/66 126/77 118/67 Pulse Oximetry 96 94 L 94 L 08/13/18 09:53 Temperature Pulse Rate Respiratory Rate Blood Pressure Pulse Oximetry 94 L Intake & Output 08/12/18 08/13/18 08/13/18 18:59 06:59 18:59 Intake Total 2450 / 2450 640 / 640 100 / 100 Output Total 400 / 400 Balance 2450 / 2450 240 / 240 100 / 100 Weight 64 kg Intake: IV 1650 / 1650 400 / 400 100 / 100 Protonix Inj 80 MG In NS Inj 100 / 100 100 ML @ 10 mls/hr IV.CONT CONT ANDREW Rx#:[id number] NS Inj 1,000 ML @ 100 mls/hr IV 1000 / 1000 .CONT .Q10H ANDREW Rx#:[id number] Zosyn 3.375 GM Premix 50 ML @ 50 / 50 150 / 150 100 mls/hr IV.SIG Q6H ANDREW Rx#: [id number] KCl 10 mEq Premix Inj 10 meq In 600 / 600 250 / 250 100 ml @ 100 mls/hr IV.SIG Q1H ANDREW Rx#:[id number] Oral 800 / 800 240 / 240 Output: Urine 400 / 400 Other: # Voids 1 # Incontinent Voids 4 Date of Last Bowel Movement 08/12/18 08/12/18 # Bowel Movements 1 # Incontinent Bowel Movements 2 Narrative: GENERAL: thin, male, not well groomed, no acute distress. SKIN: Warm and dry. HEAD: Normocephalic. EYES: No scleral icterus. No injection or drainage. NECK: Supple, trachea midline. No JVD or lymphadenopathy. CARDIOVASCULAR: Regular rate and rhythm without murmurs, gallops, or rubs. RESPIRATORY: Breath sounds equal bilaterally. No accessory muscle use. GASTROINTESTINAL: Abdomen soft, non-tender, nondistended. MUSCULOSKELETAL: No cyanosis, or edema. BACK: Nontender without obvious deformity. No CVA tenderness. NEURO: AAOx1, has soft wrist restraints. Results - Labs CBC & Chem 7: 08/13/18 01:29 08/13/18 01:29 Laboratory Results - last 24 hr 08/13/18 08/13/18 08/13/18 01:29 01:29 02:50 WBC 7.5 RBC 3.45 L Hgb 10.8 L Hct 31.7 L MCV 91.7 MCH 31.2 MCHC 34.0 RDW 13.2 Plt Count 278 MPV 9.5 Neut % (Auto) 65.1 Lymph % (Auto) 18.2 [place] % (Auto) 12.1 H Eos % (Auto) 4.1 H Baso % (Auto) 0.5 Neut # (Auto) 4.9 Lymph # (Auto) 1.4 [place] # (Auto) 0.9 Eos # (Auto) 0.3 Baso # (Auto) 0.0 WBC Differential . Differential Comment Auto diff final Sodium 144 Potassium 3.3 L Chloride 107 Carbon Dioxide 27.4 Anion Gap 10 BUN 13 Creatinine 0.56 L Estimated GFR Greater than 89 Random Glucose 89 Calcium 7.5 L Urine Color Yellow Urine Clarity Hazy H Urine pH 7.0 Ur Specific [place] 1.018 Urine Protein Negative Urine Glucose (UA) Negative Urine Ketones 20 Urine Occult Blood Negative Urine Nitrate Negative Urine Bilirubin Negative Urine Urobilinogen 4 or greater Ur Leukocyte Esterase Negative Urine RBC 5 H Urine WBC 5 Ur Squamous Epith Cells 2 Urine Bacteria Rare H Hyaline Casts 3 Urine Mucus Few H Ur Microscopic Review Not Reportable Microbiology 08/10/18 15:30 Blood - Peripheral Aerobic Blood Culture - Preliminary No growth in 3 days 08/10/18 15:30 Blood - Peripheral Anaerobic Blood Culture - Preliminary No growth in 3 days 08/10/18 15:45 Blood - Peripheral Aerobic Blood Culture - Preliminary No growth in 3 days 08/10/18 15:45 Blood - Peripheral Anaerobic Blood Culture - Preliminary No growth in 3 days 08/10/18 06:50 Blood - Peripheral Aerobic Blood Culture - Preliminary No growth in 3 days 08/10/18 06:50 Blood - Peripheral Anaerobic Blood Culture - Preliminary No growth in 3 days 08/10/18 06:50 Blood - Peripheral Aerobic Blood Culture - Final Staphylococcus aureus 08/10/18 06:50 Blood - Peripheral Anaerobic Blood Culture - Preliminary No growth in 3 days Assessment and Plan - Assessment (1) Fecal impaction Code(s): K56.41 - Fecal impaction Status: Acute (2) Bacteremia Code(s): R78.81 - Bacteremia Status: Acute (3) Dementia Code(s): F03.90 - Unspecified dementia without behavioral disturbance Status: Acute (4) Upper GI bleed Code(s): K92.2 - Gastrointestinal hemorrhage, unspecified Status: Acute - Plan This patient is a 58-year-old male CM with PMHx of Dementia admitted from a halfway for IP mgmt of chronic constipation and a distended abdomen, CT scan of the abdomen showed dilated small and large bowel 1. Large and Small bowel airfluid levels consistent with Obstruction, Fecal impaction on CT scan, no obvious GI bleed but had positive Gastroccult positive on NG tube placed, probable GI bleed, Hemoglobin stable, GI specialist following recommended for no blood thinners, continue NPO, Zosyn, PPI drip, consider EGD. had BM x 2 yesterday night and one yesterday morning so far three BMs already, okay to discharge as per GI specialist may need outpatient Endoscopic procedures but not at this time, GI specialist singed off the case. CT ABD: Small and large bowel obstruction. Systemic inflammatory response syndrome possibly secondary to intra-abdominal infection. KUB: Minimal stool is seen scattered throughout the colon with mild proximal small bowel rotation. Large bolus of stool is present in the rectum. Degenerative changes in the lower lumbar spine. There is no free air. Stool as above with some proximal small bowel gas nonspecific. 2. Bacteremia questionable has only one bottle positive for Staph aureus may be contaminant, remove Vancomycin and continue Zosyn by now, Bld Cx x1 positive for S. Aureus pending sensitivity on 08/10, other Bld Cx on Ng@24hrs UA WNL, as per ID specialist okay to discontinue Vancomycin, Monitor blood cultures taken 08/10/18, if continue negative do not see the need for treatment. 3. Leukocytosis probable reactive continue Zosyn and following ID recommendations once seen. WBC 10.1 today from 19.1 on admission Neg CXR Will get UA 4. Hypertension Holding home BP meds due to low BP, resume as needed. Home meds- Spironolactone , KCl, and Lasix. 5. Dementia/Anxiety/Depression At baseline, minimally verbal Will resume home meds- Abilify, Zoloft, Ativan, Seroquel, Valproic acid, and Amitriptyline 6. DVT PPX: SCD's Code Status: Full Code. Discussed Condition With: Patient and nurse. Discharge Planning: Expected by tomorrow
--- NOTE | 2018-08-13 14:11 | P.PNGI ---
Subjective Interval history: Patient has eyes closed sitting up in the bed still with soft wrist restraints much much calmer today. Nurse states he answers simple question off and on. No obvious nausea or vomiting, no BM today <KarynaMakayla Leyla - Last Filed: 08/13/18 14:01> Physical Exam Vital signs: Vital Signs 08/12/18 16:00 08/12/18 20:00 08/13/18 00:00 Temperature 97.8 F 98.3 F 97.7 F Pulse Rate 86 83 67 Respiratory Rate 18 20 18 Blood Pressure 109/64 125/65 121/66 Pulse Oximetry 96 93 L 96 08/13/18 04:00 08/13/18 08:00 08/13/18 09:53 Temperature 97.5 F L 97.1 F L Pulse Rate 68 62 Respiratory Rate 16 17 Blood Pressure 126/77 118/67 Pulse Oximetry 94 L 94 L 94 L Intake & Output 08/12/18 08/13/18 08/13/18 18:59 06:59 18:59 Intake Total 2450 / 2450 640 / 640 1150 / 1150 Output Total 400 / 400 Balance 2450 / 2450 240 / 240 1150 / 1150 Weight 64 kg Intake: IV 1650 / 1650 400 / 400 1150 / 1150 Protonix Inj 80 MG In NS Inj 100 / 100 100 ML @ 10 mls/hr IV.CONT CONT ANDREW Rx#:[id number] NS Inj 1,000 ML @ 100 mls/hr IV 1000 / 1000 1000 / 1000 .CONT .Q10H ANDREW Rx#:[id number] Zosyn 3.375 GM Premix 50 ML @ 50 / 50 150 / 150 50 / 50 100 mls/hr IV.SIG Q6H ANDREW Rx#: [id number] KCl 10 mEq Premix Inj 10 meq In 600 / 600 250 / 250 100 ml @ 100 mls/hr IV.SIG Q1H ANDREW Rx#:[id number] Oral 800 / 800 240 / 240 Output: Urine 400 / 400 Other: # Voids 1 # Incontinent Voids 4 Date of Last Bowel Movement 08/12/18 08/12/18 # Bowel Movements 1 # Incontinent Bowel Movements 2 - Constitutional no acute distress, thin, cachectic, somnolent - Routine HEENT Exam Head: Present: normocephalic ENT: Present: mucous membranes dry - Routine Respiratory Exam Present: accessory muscle use (No obvious shortness of breath) - Routine Cardiovascular Exam Present: S1, S2 - Routine Abdominal Exam Present: soft (taut, palable bowel) <KarynaMakayla Leyla - Last Filed: 08/13/18 14:01> Vital signs: Vital Signs 08/12/18 20:00 08/13/18 00:00 08/13/18 04:00 Temperature 98.3 F 97.7 F 97.5 F L Pulse Rate 83 67 68 Respiratory Rate 20 18 16 Blood Pressure 125/65 121/66 126/77 Pulse Oximetry 93 L 96 94 L 08/13/18 08:00 08/13/18 08:54 08/13/18 09:53 Temperature 97.1 F L Pulse Rate 62 77 Respiratory Rate 17 Blood Pressure 118/67 Pulse Oximetry 94 L 94 L 08/13/18 12:00 08/13/18 16:00 Temperature 97.2 F L 97.3 F L Pulse Rate 64 77 Respiratory Rate 16 18 Blood Pressure 120/77 124/72 Pulse Oximetry 93 L 91 L Intake & Output 08/12/18 08/13/18 08/13/18 18:59 06:59 18:59 Intake Total 2450 / 2450 640 / 640 1150 / 1150 Output Total 400 / 400 Balance 2450 / 2450 240 / 240 1150 / 1150 Weight 64 kg Intake: IV 1650 / 1650 400 / 400 1150 / 1150 Protonix Inj 80 MG In NS Inj 100 / 100 100 ML @ 10 mls/hr IV.CONT CONT ANDREW Rx#:[id number] NS Inj 1,000 ML @ 100 mls/hr IV 1000 / 1000 1000 / 1000 .CONT .Q10H ANDREW Rx#:[id number] Zosyn 3.375 GM Premix 50 ML @ 50 / 50 150 / 150 50 / 50 100 mls/hr IV.SIG Q6H ANDREW Rx#: [id number] KCl 10 mEq Premix Inj 10 meq In 600 / 600 250 / 250 100 ml @ 100 mls/hr IV.SIG Q1H ANDREW Rx#:[id number] Oral 800 / 800 240 / 240 Output: Urine 400 / 400 Other: # Voids 1 # Incontinent Voids 4 Date of Last Bowel Movement 08/12/18 08/12/18 08/13/18 # Bowel Movements 1 # Incontinent Bowel Movements 2 <Isidoro Dorantes - Last Filed: 08/13/18 17:53> Results - Labs CBC & Chem 7: 08/13/18 01:29 08/13/18 01:29 Laboratory Results - last 24 hr 08/13/18 08/13/18 08/13/18 01:29 01:29 02:50 WBC 7.5 RBC 3.45 L Hgb 10.8 L Hct 31.7 L MCV 91.7 MCH 31.2 MCHC 34.0 RDW 13.2 Plt Count 278 MPV 9.5 Neut % (Auto) 65.1 Lymph % (Auto) 18.2 [place] % (Auto) 12.1 H Eos % (Auto) 4.1 H Baso % (Auto) 0.5 Neut # (Auto) 4.9 Lymph # (Auto) 1.4 [place] # (Auto) 0.9 Eos # (Auto) 0.3 Baso # (Auto) 0.0 WBC Differential . Differential Comment Auto diff final Sodium 144 Potassium 3.3 L Chloride 107 Carbon Dioxide 27.4 Anion Gap 10 BUN 13 Creatinine 0.56 L Estimated GFR Greater than 89 Random Glucose 89 Calcium 7.5 L Urine Color Yellow Urine Clarity Hazy H Urine pH 7.0 Ur Specific [place] 1.018 Urine Protein Negative Urine Glucose (UA) Negative Urine Ketones 20 Urine Occult Blood Negative Urine Nitrate Negative Urine Bilirubin Negative Urine Urobilinogen 4 or greater Ur Leukocyte Esterase Negative Urine RBC 5 H Urine WBC 5 Ur Squamous Epith Cells 2 Urine Bacteria Rare H Hyaline Casts 3 Urine Mucus Few H Ur Microscopic Review Not Reportable Microbiology 08/10/18 15:30 Blood - Peripheral Aerobic Blood Culture - Preliminary No growth in 3 days 08/10/18 15:30 Blood - Peripheral Anaerobic Blood Culture - Preliminary No growth in 3 days 08/10/18 15:45 Blood - Peripheral Aerobic Blood Culture - Preliminary No growth in 3 days 08/10/18 15:45 Blood - Peripheral Anaerobic Blood Culture - Preliminary No growth in 3 days 08/10/18 06:50 Blood - Peripheral Aerobic Blood Culture - Preliminary No growth in 3 days 08/10/18 06:50 Blood - Peripheral Anaerobic Blood Culture - Preliminary No growth in 3 days 08/10/18 06:50 Blood - Peripheral Aerobic Blood Culture - Final Staphylococcus aureus 08/10/18 06:50 Blood - Peripheral Anaerobic Blood Culture - Preliminary No growth in 3 days <Makayla Troncoso M - Last Filed: 08/13/18 14:01> - Labs CBC & Chem 7: 08/13/18 01:29 08/13/18 01:29 Laboratory Results - last 24 hr 08/13/18 08/13/18 08/13/18 01:29 01:29 02:50 WBC 7.5 RBC 3.45 L Hgb 10.8 L Hct 31.7 L MCV 91.7 MCH 31.2 MCHC 34.0 RDW 13.2 Plt Count 278 MPV 9.5 Neut % (Auto) 65.1 Lymph % (Auto) 18.2 [place] % (Auto) 12.1 H Eos % (Auto) 4.1 H Baso % (Auto) 0.5 Neut # (Auto) 4.9 Lymph # (Auto) 1.4 [place] # (Auto) 0.9 Eos # (Auto) 0.3 Baso # (Auto) 0.0 WBC Differential . Differential Comment Auto diff final Sodium 144 Potassium 3.3 L Chloride 107 Carbon Dioxide 27.4 Anion Gap 10 BUN 13 Creatinine 0.56 L Estimated GFR Greater than 89 Random Glucose 89 Calcium 7.5 L Urine Color Yellow Urine Clarity Hazy H Urine pH 7.0 Ur Specific [place] 1.018 Urine Protein Negative Urine Glucose (UA) Negative Urine Ketones 20 Urine Occult Blood Negative Urine Nitrate Negative Urine Bilirubin Negative Urine Urobilinogen 4 or greater Ur Leukocyte Esterase Negative Urine RBC 5 H Urine WBC 5 Ur Squamous Epith Cells 2 Urine Bacteria Rare H Hyaline Casts 3 Urine Mucus Few H Ur Microscopic Review Not Reportable Microbiology 08/10/18 15:30 Blood - Peripheral Aerobic Blood Culture - Preliminary No growth in 3 days 08/10/18 15:30 Blood - Peripheral Anaerobic Blood Culture - Preliminary No growth in 3 days 08/10/18 15:45 Blood - Peripheral Aerobic Blood Culture - Preliminary No growth in 3 days 08/10/18 15:45 Blood - Peripheral Anaerobic Blood Culture - Preliminary No growth in 3 days 08/10/18 06:50 Blood - Peripheral Aerobic Blood Culture - Preliminary No growth in 3 days 08/10/18 06:50 Blood - Peripheral Anaerobic Blood Culture - Preliminary No growth in 3 days 08/10/18 06:50 Blood - Peripheral Aerobic Blood Culture - Final Staphylococcus aureus 08/10/18 06:50 Blood - Peripheral Anaerobic Blood Culture - Preliminary No growth in 3 days <Isidoro Dorantes - Last Filed: 08/13/18 17:53> Assessment and Plan - Plan - Plan 08/11/2018 patient is more alert today and attempting to answer simple questions. Minimal NG tube drainage noted now but still may have dark serous color hemoglobin was 13.1 now 11.9. Will need to continue to monitor for any further GI bleeding. Bowel sounds are soft and appear to be returning abdomen is flat non-tympanic for now. Hold any blood thinners large and small bowel obstruction could have been related to fecal impaction. Appears to be resolving. 08/12/18-patient alert and awake laying in bed. No apparent distress noted. Bilateral soft wrist restraints in place. Nurse reports patient had 2 bowel movements and states patient has had no further vomiting. Abdomen soft and flat. KUB done on 08/11/2018 revealed--> Minimal stool is seen scattered throughout the colon with mild proximal small bowel rotation. Large bolus of stool is present in the rectum. Degenerative changes in the lower lumbar spine.There is no free air. This appears to be resolved at this time 920 4:18 AM labs reviewed WBC 9.0 hemoglobin 10.7 hematocrit 32.5 platelet count 248 total bilirubin 0.7 AST 34 ALT 26 alk phos 66. 08/13/2018 patient is much calmer today eyes closed but according to staff will answer a few simple questions off and on. Still has soft wrist restraints on. No obvious abdominal pain but palpable bowel noted. No bowel movement today so will continue colon cleansing and give mag citrate x1 today. Consider colonoscopy in the future, hopefully within the next day or 2 as long as patient continues to improve. Continue PPI drip today. Consider transitioning to p.o. tomorrow. Plan: Diet full liquids Mag citrate x1 today, continue bowel cleansing Monitor lab Zosyn per attending PPI drip Monitor for any acute bleeding and transfuse as needed Intake and output and monitor number of stools Supportive care Patient was seen per myself and Dr. Dorantes, note was written on his behalf <Makayla Troncoso - Last Filed: 08/13/18 14:01> - Plan Seen and examined with PHYSICIAN'S ASSISTANT, no bleeding. H/H stable. Constipation resolved. Outpatient colonoscopy recommended. GI will sign off, reconsult as needed. Thank you The exam, history, and the medical decision-making described in the above note were completed with the assistance of the mid-level provider. I reviewed and agree with the findings presented. I attest that I had a [id number] encounter with the patient on the same day, and personally performed and documented my assessment and findings in the medical record. <Isidoro Dorantes - Last Filed: 08/13/18 17:53>
[2018-08-13] MEDS ORDERED: Magnesium Citrate Liq 300 ML Bottle PO ONE (15:00)
[2018-08-13] MEDS: Divalproex 125 MG Sprinkles Capsule PO SCH (21:50)
[2018-08-14 04:38] VITALS: TEMP 97.4
[2018-08-14] MEDS: Piperacil/Tazo 3.375 GM Premix 50 ML IV.SIG SCH ×2 (05:57→12:37)
[2018-08-14 08:26] VITALS: RESP 18
[2018-08-14] MEDS: Magnesium Oxide 400 MG Tablet PO SCH (08:50)
[2018-08-14] MEDS: Sertraline 100 MG Tablet PO SCH (08:50)
[2018-08-14] MEDS: QUEtiapine 25 MG Tablet PO SCH (08:50)
[2018-08-14] MEDS: ARIPiprazole 5 MG Tablet PO SCH (08:50)
[2018-08-14] MEDS: Sod Chloride 0.9% Inj 1,000 ML IV.CONT SCH (08:51)
[2018-08-14] MEDS: Sodium Chloride 0.9% 2 ML Flush BID IV.FLUSH SCH (08:51)
[2018-08-14] MEDS: Pantoprazole Inj 80 MG in Sodium Chlor 0.9% Inj 100 ML IV.CONT SCH (08:52)
--- NOTE | 2018-08-14 10:51 | P.PN ---
Subjective Interval history: This is a pleasant 58 y/o male with Hypertension, Dementia, Depression, constipation, chronic essential tremor, history of CVA who appears to be from [facility] and rehab rindge. The patient is DNR and DNI. Seen in his bedroom today is confused, discussed with nurse to remove restraints , he had three bowel movements so far since admission, last night had two, KUB showed minimal stool scattered throughout the colon with mild proximal small bowel rotation, large bolus of stool in rectum, asked by GI for Full liquid diet as tolerated, avoid blood thinners, no nausea or vomit reported. 08/13: Stable in his bedroom as per Nurse he is able to eat properly, he is awake to eat then comes back to sleep this is his baseline, GI specialist signed off the case, no further recommendations probable Endoscopic studies as outpatient, no nausea, vomit or diarrhea. off wrist restraints to be able to discharge in am tomorrow. : stable in his bedroom, no nausea, vomit or diarrhea, okay to discharge later today to SNF, discussed with nurse, he is eating properly, but comes back to sleep, at baseline. Physical Exam Vital signs: Vital Signs 08/13/18 12:00 08/13/18 16:00 08/13/18 20:00 Temperature 97.2 F L 97.3 F L 98.9 F Pulse Rate 64 77 75 Respiratory Rate 16 18 19 Blood Pressure 120/77 124/72 154/72 H Pulse Oximetry 93 L 91 L 94 L 08/14/18 00:00 08/14/18 04:00 08/14/18 08:00 Temperature 98.9 F 97.4 F L 97.4 F L Pulse Rate 74 60 55 L Respiratory Rate 17 20 18 Blood Pressure 105/56 L 113/70 111/70 Pulse Oximetry 95 93 L 98 Intake & Output 08/13/18 08/14/18 08/14/18 18:59 06:59 18:59 Intake Total 1984 / 1984 1440 / 1440 1050 / 1050 Output Total 1500 / 1500 680 / 680 Balance 485 / 485 760 / 760 1050 / 1050 Weight 65 kg Intake: IV 1150 / 1150 1200 / 1200 1050 / 1050 Protonix Inj 80 MG In NS Inj 100 / 100 100 / 100 100 ML @ 10 mls/hr IV.CONT CONT ANDREW Rx#:[id number] NS Inj 1,000 ML @ 100 mls/hr IV 1000 / 1000 1000 / 1000 1000 / 1000 .CONT .Q10H ANDREW Rx#:[id number] Zosyn 3.375 GM Premix 50 ML @ 50 / 50 100 / 100 50 / 50 100 mls/hr IV.SIG Q6H ANDREW Rx#: [id number] Oral 835 / 835 240 / 240 Output: Urine 1500 / 1500 680 / 680 Other: Date of Last Bowel Movement 08/13/18 # Bowel Movements 1 1 Narrative: GENERAL: thin, male, not well groomed, no acute distress. SKIN: Warm and dry. HEAD: Normocephalic. EYES: No scleral icterus. No injection or drainage. NECK: Supple, trachea midline. No JVD or lymphadenopathy. CARDIOVASCULAR: Regular rate and rhythm without murmurs, gallops, or rubs. RESPIRATORY: Breath sounds equal bilaterally. No accessory muscle use. GASTROINTESTINAL: Abdomen soft, non-tender, nondistended. MUSCULOSKELETAL: No cyanosis, or edema. BACK: Nontender without obvious deformity. No CVA tenderness. NEURO: AAOx1, has soft wrist restraints. Results - Labs CBC & Chem 7: 08/13/18 01:29 08/13/18 01:29 Microbiology 08/10/18 15:30 Blood - Peripheral Aerobic Blood Culture - Preliminary No growth in 3 days 08/10/18 15:30 Blood - Peripheral Anaerobic Blood Culture - Preliminary No growth in 3 days 08/10/18 15:45 Blood - Peripheral Aerobic Blood Culture - Preliminary No growth in 3 days 08/10/18 15:45 Blood - Peripheral Anaerobic Blood Culture - Preliminary No growth in 3 days 08/10/18 06:50 Blood - Peripheral Aerobic Blood Culture - Preliminary No growth in 3 days 08/10/18 06:50 Blood - Peripheral Anaerobic Blood Culture - Preliminary No growth in 3 days 08/10/18 06:50 Blood - Peripheral Aerobic Blood Culture - Final Staphylococcus aureus 08/10/18 06:50 Blood - Peripheral Anaerobic Blood Culture - Preliminary No growth in 3 days Assessment and Plan - Assessment (1) Fecal impaction Code(s): K56.41 - Fecal impaction Status: Acute (2) Bacteremia Code(s): R78.81 - Bacteremia Status: Acute (3) Dementia Code(s): F03.90 - Unspecified dementia without behavioral disturbance Status: Acute (4) Upper GI bleed Code(s): K92.2 - Gastrointestinal hemorrhage, unspecified Status: Acute - Plan This patient is a 58-year-old male CM with PMHx of Dementia admitted from a retirement for IP mgmt of chronic constipation and a distended abdomen, CT scan of the abdomen showed dilated small and large bowel 1. Large and Small bowel airfluid levels consistent with Obstruction, Fecal impaction on CT scan, no obvious GI bleed but had positive Gastroccult positive on NG tube placed, probable GI bleed, Hemoglobin stable, GI specialist following recommended for no blood thinners, continue NPO, Zosyn, PPI drip, consider EGD. had BM x 2 yesterday night and one yesterday morning so far three BMs already, okay to discharge as per GI specialist may need outpatient Endoscopic procedures but not at this time, GI specialist singed off the case. CT ABD: Small and large bowel obstruction. Systemic inflammatory response syndrome possibly secondary to intra-abdominal infection. KUB: Minimal stool is seen scattered throughout the colon with mild proximal small bowel rotation. Large bolus of stool is present in the rectum. Degenerative changes in the lower lumbar spine. There is no free air. Stool as above with some proximal small bowel gas nonspecific. 2. Bacteremia questionable has only one bottle positive for Staph aureus may be contaminant, remove Vancomycin and continue Zosyn by now, Bld Cx x1 positive for S. Aureus pending sensitivity on 08/10, other Bld Cx on Ng@24hrs UA WNL, as per ID specialist okay to discontinue Vancomycin, Monitor blood cultures taken 08/10/18, if continue negative do not see the need for treatment. 3. Leukocytosis probable reactive continue Zosyn and following ID recommendations once seen. WBC 10.1 today from 19.1 on admission Neg CXR Will get UA 4. Hypertension Holding home BP meds due to low BP, resume as needed. Home meds- Spironolactone , KCl, and Lasix. 5. Dementia/Anxiety/Depression At baseline, minimally verbal Will resume home meds- Abilify, Zoloft, Ativan, Seroquel, Valproic acid, and Amitriptyline 6. DVT PPX: SCD's Code Status: Full Code. Discussed Condition With: Patient and Nurse. Discharge Planning: Discharge to SNF today
--- NOTE | 2018-08-14 10:56 | P.DS ---
Date of admission: 08/10/18 19:30 Primary care physician: Troy Call Attending physician on discharge: Ferdinand Castaneda Anticipated date of discharge: 08/14/18 Brief History from admission: This patient is a 58-year-old male with a diagnosis of hypertension, dementia, depression, constipation, chronic essential tremor, history of CVA who appears to be from [facility]. The patient is DNR and DNI. He was brought into our emergency department today because he was having foul- smelling emesis and has a distended abdomen. The patient is severely demented and is unable to give any history. As per documentation the patient had a large episode of foul-smelling emesis today and had a bowel movement yesterday. I was unable to obtain any further history. Because of the patient's multiple medical problems the medicine team was called to admit the patient. Past medical history hypertension, dementia, depression, constipation, chronic essential tremor, history of CVA unclear if it is ischemic or hemorrhagic. Family history unable to obtain Surgical history unable to obtain Social history unable to obtain DS: Diagnosis - Discharge Diagnosis (1) Fecal impaction Status: Acute (2) Bacteremia Status: Acute (3) Dementia Status: Acute (4) Upper GI bleed Status: Acute DS: Summary Hospital Course: This is a pleasant 58 y/o male with Hypertension, Dementia, Depression, constipation, chronic essential tremor, history of CVA who appears to be from [facility]. The patient is DNR and DNI. Seen in his bedroom today is confused, discussed with nurse to remove restraints , he had three bowel movements so far since admission, last night had two, KUB showed minimal stool scattered throughout the colon with mild proximal small bowel rotation, large bolus of stool in rectum, asked by GI for Full liquid diet as tolerated, avoid blood thinners, no nausea or vomit reported. 08/13: Stable in his bedroom as per Nurse he is able to eat properly, he is awake to eat then comes back to sleep this is his baseline, GI specialist signed off the case, no further recommendations probable Endoscopic studies as outpatient, no nausea, vomit or diarrhea. off wrist restraints to be able to discharge in am tomorrow. 08/14P: stable in his bedroom, no nausea, vomit or diarrhea, okay to discharge later today to SNF, discussed with nurse, he is eating properly, but comes back to sleep, at baseline. Results - Labs CBC & Chem 7: 08/13/18 01:29 08/13/18 01:29 Microbiology 08/10/18 15:30 Blood - Peripheral Aerobic Blood Culture - Preliminary No growth in 3 days 08/10/18 15:30 Blood - Peripheral Anaerobic Blood Culture - Preliminary No growth in 3 days 08/10/18 15:45 Blood - Peripheral Aerobic Blood Culture - Preliminary No growth in 3 days 08/10/18 15:45 Blood - Peripheral Anaerobic Blood Culture - Preliminary No growth in 3 days 08/10/18 06:50 Blood - Peripheral Aerobic Blood Culture - Preliminary No growth in 3 days 08/10/18 06:50 Blood - Peripheral Anaerobic Blood Culture - Preliminary No growth in 3 days 08/10/18 06:50 Blood - Peripheral Aerobic Blood Culture - Final Staphylococcus aureus 08/10/18 06:50 Blood - Peripheral Anaerobic Blood Culture - Preliminary No growth in 3 days Assessment and Plan - Assessment (1) Fecal impaction Code(s): K56.41 - Fecal impaction Status: Acute (2) Bacteremia Code(s): R78.81 - Bacteremia Status: Acute (3) Dementia Code(s): F03.90 - Unspecified dementia without behavioral disturbance Status: Acute (4) Upper GI bleed Code(s): K92.2 - Gastrointestinal hemorrhage, unspecified Status: Acute - Plan This patient is a 58-year-old male CM with PMHx of Dementia admitted from a long term for IP mgmt of chronic constipation and a distended abdomen, CT scan of the abdomen showed dilated small and large bowel 1. Large and Small bowel airfluid levels consistent with Obstruction, Fecal impaction on CT scan, no obvious GI bleed but had positive Gastroccult positive on NG tube placed, probable GI bleed, Hemoglobin stable, GI specialist following recommended for no blood thinners, continue NPO, Zosyn, PPI drip, consider EGD. had BM x 2 yesterday night and one yesterday morning so far three BMs already, okay to discharge as per GI specialist may need outpatient Endoscopic procedures but not at this time, GI specialist singed off the case. CT ABD: Small and large bowel obstruction. Systemic inflammatory response syndrome possibly secondary to intra-abdominal infection. KUB: Minimal stool is seen scattered throughout the colon with mild proximal small bowel rotation. Large bolus of stool is present in the rectum. Degenerative changes in the lower lumbar spine. There is no free air. Stool as above with some proximal small bowel gas nonspecific. 2. Bacteremia questionable has only one bottle positive for Staph aureus may be contaminant, remove Vancomycin and continue Zosyn by now, Bld Cx x1 positive for S. Aureus pending sensitivity on 08/10, other Bld Cx on Ng@24hrs UA WNL, as per ID specialist okay to discontinue Vancomycin, Monitor blood cultures taken 08/10/18, if continue negative do not see the need for treatment. 3. Leukocytosis probable reactive continue Zosyn and following ID recommendations once seen. WBC 10.1 today from 19.1 on admission Neg CXR Will get UA 4. Hypertension Holding home BP meds due to low BP, resume as needed. Home meds- Spironolactone , KCl, and Lasix. 5. Dementia/Anxiety/Depression At baseline, minimally verbal Will resume home meds- Abilify, Zoloft, Ativan, Seroquel, Valproic acid, and Amitriptyline 6. DVT PPX: SCD's Code Status: Full Code. Discussed Condition With: Patient and Nurse. Discharge Planning: Discharge to SNF today - Time Spent with Patient Total time spent providing and/or coordinating discharge services: Greater than 30 minutes - Quality: VTE Deep Vein Thrombosis/Pulmonary Embolism Present on Admission: No Exam Vital signs: Vital Signs 08/13/18 12:00 08/13/18 16:00 08/13/18 20:00 Temperature 97.2 F L 97.3 F L 98.9 F Pulse Rate 64 77 75 Respiratory Rate 16 18 19 Blood Pressure 120/77 124/72 154/72 H Pulse Oximetry 93 L 91 L 94 L 08/14/18 00:00 08/14/18 04:00 08/14/18 08:00 Temperature 98.9 F 97.4 F L 97.4 F L Pulse Rate 74 60 55 L Respiratory Rate 17 20 18 Blood Pressure 105/56 L 113/70 111/70 Pulse Oximetry 95 93 L 98 Intake & Output 08/13/18 08/14/18 08/14/18 18:59 06:59 18:59 Intake Total 1984 1440 / 1440 1050 / 1050 Output Total 1500 / 1500 680 / 680 Balance 485 / 485 760 / 760 1050 / 1050 Weight 65 kg Intake: IV 1150 / 1150 1200 / 1200 1050 / 1050 Protonix Inj 80 MG In NS Inj 100 / 100 100 / 100 100 ML @ 10 mls/hr IV.CONT CONT ANDREW Rx#:[id number] NS Inj 1,000 ML @ 100 mls/hr IV 1000 / 1000 1000 / 1000 1000 / 1000 .CONT .Q10H ANDREW Rx#:[id number] Zosyn 3.375 GM Premix 50 ML @ 50 / 50 100 / 100 50 / 50 100 mls/hr IV.SIG Q6H ANDREW Rx#: [id number] Oral 835 / 835 240 / 240 Output: Urine 1500 / 1500 680 / 680 Other: Date of Last Bowel Movement 08/13/18 # Bowel Movements 1 1 Narrative: GENERAL: thin, male, not well groomed, no acute distress. SKIN: Warm and dry. HEAD: Normocephalic. EYES: No scleral icterus. No injection or drainage. NECK: Supple, trachea midline. No JVD or lymphadenopathy. CARDIOVASCULAR: Regular rate and rhythm without murmurs, gallops, or rubs. RESPIRATORY: Breath sounds equal bilaterally. No accessory muscle use. GASTROINTESTINAL: Abdomen soft, non-tender, nondistended. MUSCULOSKELETAL: No cyanosis, or edema. BACK: Nontender without obvious deformity. No CVA tenderness. NEURO: AAOx1, has soft wrist restraints. Results Procedures completed during hospitalization: None Labs on day of discharge: Preliminary micro results at discharge 08/10/18 15:30 Aerobic Blood Culture - Preliminary Blood - Peripheral No growth in 3 days Anaerobic Blood Culture - Preliminary No growth in 3 days 08/10/18 15:45 Aerobic Blood Culture - Preliminary Blood - Peripheral No growth in 3 days Anaerobic Blood Culture - Preliminary No growth in 3 days 08/10/18 06:50 Aerobic Blood Culture - Preliminary Blood - Peripheral No growth in 3 days Anaerobic Blood Culture - Preliminary No growth in 3 days 08/10/18 06:50 Anaerobic Blood Culture - Preliminary Blood - Peripheral No growth in 3 days - Impressions ITS Impressions Chest X-Ray 08/10/18 06:32 CONCLUSION: Minimal parenchymal changes left base otherwise negative Abdomen/Pelvis CT 08/10/18 07:16 CONCLUSION: 1. Dilatation of both large and small bowel with air-fluid levels in the large bolus of stool in rectum consistent with impaction. 2. There is no free air Abdomen X-Ray 08/11/18 13:30 CONCLUSION: Stool as above with some proximal small bowel gas nonspecific. Sign report Discharge Plan - Discharge Disposition Patient Disposition: 03 Discharge to SNF - Discharge Condition Condition: Fair - Discharge Order Discharge Orders: Discharge Order (Routine); Ordered 08/14/18 Ordered By: Ferdinand Castaneda - Discharge Details Anticipated Discharge Date: 08/14/18 Discharge Comment: Follow with PCP in three days. - Physicians Team Primary Care Provider: Troy Call Attending Provider: Ferdinand Castaenda Other Providers: Min Balderas MD ; Dhaval Cortés MD ; Eduardo Torres MD ; [facility],[place] ; [facility],[place]
[2018-08-14 11:51] VITALS: BP 99/56; PULSE 69; O2SAT 100
== END 2018-08-14 15:08 ==
LOC: NEDA 06:26 → NEPC 06:26 → NEPFCDU 16:38 → N07 08-11 15:18
PROVIDERS: ADMIT Internal Medicine; ATTEND Internal Medicine